=== PATIENT | male | born 1945 | race Caucasian/White ===

== ENCOUNTER 2018-05-31 08:33 | Inpatient (IN) | payer MEDICARE ==
[~2018-05-31] VITALS: Ht 182.9 cm; Wt 113.1 kg
[~2018-05-31 08:33] MED LIST: ASP81TEC PO; HIGH BLOOD PRESSURE PO; LISI10TA PO; LISI1TAB6 PO; METO-333 PO; SIMV10TA3 PO; SMV10T PO
[2018-05-31] MEDS ORDERED: RT-ALBUTEROL/IPRATROPIUM 3 ML (DUONEB) VIAL INH ONE (09:00)
[2018-05-31 09:16] LABS: BASOPHILS % (AUTO) 0 % (0-10); EOSINOPHILS # (AUTO) 0.3 10^3/uL (0.0-0.3); EOSINOPHILS % (AUTO) 4 % (0-10); HEMATOCRIT 38 % (40-54); HEMOGLOBIN 12.7 G/DL (13.3-17.7); LYMPHOCYTES # (AUTO) 1.1 X 10^3 (1.0-4.0); LYMPHOCYTES % (AUTO) 13 % (12-44); MEAN CORPUSCULAR HEMOGLOBIN 34 PG (25-34); MEAN CORPUSCULAR HGB CONC 33 G/DL (32-36); MEAN CORPUSCULAR VOLUME 102 FL (80-99); MEAN PLATELET VOLUME 10.6 FL (7.4-10.4); MONOCYTES # (AUTO) 0.8 X 10^3 (0.0-1.0); MONOCYTES % (AUTO) 10 % (0-12); NEUTROPHILS # (AUTO) 5.8 X 10^3 (1.8-7.8); NEUTROPHILS % (AUTO) 73 % (42-75); PLATELET COUNT 232 10^3/uL (130-400); RED CELL DISTRIBUTION WIDTH 14.4 % (10.0-14.5)
--- NOTE | 2018-05-31 09:19 | NUR ---
SONDRA IN RT NOTIIFED OF NEEDING A BREATHING TX.
[2018-05-31 09:23] LABS: ALANINE AMINOTRANSFERASE 45 U/L (0-55); ALBUMIN 3.8 GM/DL (3.2-4.5); ALKALINE PHOSPHATASE 72 U/L (40-136); BILIRUBIN,TOTAL 0.4 MG/DL (0.1-1.0); BUN/CREATININE RATIO 11; CALCIUM 9.2 MG/DL (8.5-10.1); CARBON DIOXIDE 25 MMOL/L (21-32); CHLORIDE 103 MMOL/L (98-107); GFR ESTIMATED > 60; GLUCOSE 135 MG/DL (70-105); POTASSIUM 4.2 MMOL/L (3.6-5.0); SODIUM 135 MMOL/L (135-145); TOTAL PROTEIN 7.4 GM/DL (6.4-8.2)
--- NOTE | 2018-05-31 09:23 | Diagnostic Imaging Report ---
INDICATION: Shortness of air, worsening in severity. Compared with exam 12/15/2011. FINDINGS: No alveolar consolidation. The heart size stable. No effusion or pneumothorax. Perihilar interstitial markings are more prominent and there is some thickening of the central airways which may reflect bronchitis or other reactive airway disease. The lung volumes within normal limits. IMPRESSION: Mild thickening of the central airways but no consolidating pneumonia, no pleural abnormality. Dictated by: Dictated on workstation # [id number]
--- NOTE | 2018-05-31 09:35 | ED General ---
General Chief Complaint: Respiratory Problems Stated Complaint: SOB Nursing Triage Note: ARRIVED VIA AMB TO ROOM 07 WITH SOA FOR TWO DAYS THAT HAS BECAME WORSE. Nursing Sepsis Screen: No Definite Risk Source of Information: Patient Exam Limitations: No Limitations History of Present Illness Date Seen by Provider: May 31, 2018 Time Seen by Provider: 08:53 Initial Comments This 72-year-old gentleman presents to the emergency room with cough, shortness of breath, and wheezing for the past couple of days. He is noted to be hypoxic on room air during assessment with an oxygen saturation of 84 percent. He denies any history of COPD or asthma. He does not use any inhaled treatments at home. He does have an extensive smoking history. Review of his chart notes a normal cardiac catheter in 2011. He denies any chest pain. His primary care providers Daniel Pope at [facility]. Allergies and Home Medications Allergies Coded Allergies: No Known Drug Allergies (Unverified , 12/15/11) Home Medications Amlodipine Besylate 10 Mg Tablet, 10 MG PO HS, (Reported) Aspirin 81 Mg Tablet.dr, 81 MG PO HS, (Reported) Ibuprofen 800 Mg Tablet, 800 MG PO TID PRN for PAIN-MILD, (Reported) Losartan Potassium 100 Mg Tablet, 100 MG PO HS, (Reported) Metoprolol Succinate 25 Mg Tab.er.24h, 25 MG PO HS, (Reported) Terazosin HCl 10 Mg Capsule, 10 MG PO HS, (Reported) Patient Home Medication List Home Medication List Reviewed: Yes Review of Systems Review of Systems Constitutional: no symptoms reported EENTM: no symptoms reported Respiratory: see HPI Cardiovascular: no symptoms reported Gastrointestinal: no symptoms reported Genitourinary: no symptoms reported Musculoskeletal: no symptoms reported Skin: no symptoms reported Psychiatric/Neurological: No Symptoms Reported Hematologic/Lymphatic: No Symptoms Reported Immunological/Allergic: no symptoms reported Past Yqjgtgy-Lchldz-Lrytfu Hx Past Med/Social Hx: Reviewed and Corrections made Patient Social History Alcohol Use: Occasionally Uses Recreational Drug Use: No Smoking Status: Current Everyday Smoker Recent Foreign Travel: No Contact w/Someone Who Travel: No Recent Infectious Disease Expo: No Recent Hopitalizations: Yes Past Medical History Surgeries: Yes Cardiac (Cath), Vascular Surgery (Carotid) Respiratory: Yes (tobaccoism) Cardiac: Yes Hypertension Neurological: No Reproductive Disorders: No Genitourinary: No Gastrointestinal: No Musculoskeletal: Yes Arthritis Endocrine: No HEENT: No Cancer: No Psychosocial: No Integumentary: No Blood Disorders: No Physical Exam Vital Signs Vital Signs - First Documented 05/31/18 08:38 Temp 97.7 Pulse 67 Resp 22 B/P (MAP) 172/151 (158) Pulse Ox 84 O2 Delivery Room Air O2 Flow Rate 2.00 Capillary Refill : Less Than 3 Seconds Height, Weight, BMI Height: 6'" Weight: 260lbs. oz. 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 Norm as Tested Skin: Normal Color, Warm/Dry Progress/Results/Core Measures Suspected Sepsis Recent Fever Within 48 Hours: No Infection Criteria Present: Suspected New Infection New/Unexplained Altered Menta: No Sepsis Screen: No Definite Risk SIRS Temperature:97.7 Pulse: 67 Respiratory Rate: 22 Laboratory Tests 05/31/18 08:45: White Blood Count 8.0 Blood Pressure 172 /151 Mean: 158 Laboratory Tests 05/31/18 08:45: Creatinine 1.00, Platelet Count 232, Total Bilirubin 0.4 Results/Orders Lab Results Laboratory Tests Test 05/31/18 08:45 Range/Units White Blood Count 8.0 4.3-11.0 10^3/uL Red Blood Count 3.74 L 4.35-5.85 10^6/uL Hemoglobin 12.7 L 13.3-17.7 G/DL Hematocrit 38 L 40-54 % Mean Corpuscular Volume 102 H 80-99 FL Mean Corpuscular Hemoglobin 34 25-34 PG Mean Corpuscular Hemoglobin Concent 33 32-36 G/DL Red Cell Distribution Width 14.4 10.0-14.5 % Platelet Count 232 130-400 10^3/uL Mean Platelet Volume 10.6 H 7.4-10.4 FL Neutrophils (%) (Auto) 73 42-75 % Lymphocytes (%) (Auto) 13 12-44 % Monocytes (%) (Auto) 10 0-12 % Eosinophils (%) (Auto) 4 0-10 % Basophils (%) (Auto) 0 0-10 % Neutrophils # (Auto) 5.8 1.8-7.8 X 10^3 Lymphocytes # (Auto) 1.1 1.0-4.0 X 10^3 Monocytes # (Auto) 0.8 0.0-1.0 X 10^3 Eosinophils # (Auto) 0.3 0.0-0.3 10^3/uL Basophils # (Auto) 0.0 0.0-0.1 10^3/uL Sodium Level 135 135-145 MMOL/L Potassium Level 4.2 3.6-5.0 MMOL/L Chloride Level 103 98-107 MMOL/L Carbon Dioxide Level 25 21-32 MMOL/L Anion Gap 7 5-14 MMOL/L Blood Urea Nitrogen 11 7-18 MG/DL Creatinine 1.00 0.60-1.30 MG/DL Estimat Glomerular Filtration Rate > 60 BUN/Creatinine Ratio 11 Glucose Level 135 H 70-105 MG/DL Calcium Level 9.2 8.5-10.1 MG/DL Corrected Calcium 9.4 8.5-10.1 MG/DL Total Bilirubin 0.4 0.1-1.0 MG/DL Aspartate Amino Transf (AST/SGOT) 28 5-34 U/L Alanine Aminotransferase (ALT/SGPT) 45 0-55 U/L Alkaline Phosphatase 72 40-136 U/L C-Reactive Protein High Sensitivity 7.44 H 0.00-0.50 MG/DL B-Type Natriuretic Peptide 588.2 H <100.0 PG/ML Total Protein 7.4 6.4-8.2 GM/DL Albumin 3.8 3.2-4.5 GM/DL Micro Results Microbiology 05/31/18 Influenza Types A,B Antigen (RACHAEL) - Final, Complete My Orders Orders - STANLEY MANCUSO MD Cbc With Automated Diff (05/31/18 08:53) Comprehensive Metabolic Panel (05/31/18 08:53) Hs C Reactive Protein (05/31/18 08:53) Influenza A And B Antigens (05/31/18 08:53) Chest Pa/Lat (2 View) (05/31/18 08:53) O2 (05/31/18 08:53) Monitor-Rhythm Ecg Trace Only (05/31/18 08:53) Albuterol/Ipra Inhalation Soln (Duoneb I (05/31/18 09:00) Svn Small Volume Nebulizer (05/31/18 08:53) BNP (05/31/18 08:53) Albuterol Pre-Mix Nebs (Rt) (Proventil (05/31/18 09:52) Medications Given in ED Current Medications Medications Dose Ordered Sig/Seng Route Start Time Stop Time Status Last Admin Dose Admin Albuterol/ Ipratropium 3 ml ONCE ONCE INH 05/31/18 09:00 05/31/18 09:01 DC 05/31/18 09:43 3 ML Vital Signs/I&O 05/31/18 05/31/18 05/31/18 05/31/18 08:38 08:38 09:44 09:55 Temp 97.7 Pulse 67 Resp 22 B/P (MAP) 172/151 (158) Pulse Ox 84 96 95 O2 Delivery Room Air Nasal Cannula Nasal Cannula Nasal Cannula O2 Flow Rate 2.00 2.00 2.00 05/31/18 05/31/18 11:36 11:55 Temp 98.9 98.1 Pulse 86 47 Resp 16 20 B/P (MAP) 133/91 (105) 165/62 (96) Pulse Ox 96 96 O2 Delivery Room Air Nasal Cannula O2 Flow Rate 2.00 Capillary Refill : Less Than 3 Seconds Blood Pressure Mean: 158 Progress Note : Progress Note Patient received a DuoNeb treatments 2. CRP was mildly elevated. Oxygen saturation was steady around 92 percent after the DuoNeb treatments. Plan is to admit for treatment of COPD exacerbation. Because of some fullness in the central chest and mildly elevated CRP, patient will also be given azithromycin. Patient was admitted to Dr. Arizmendi who also requested consultation from Dr. Pena. Solu-medrol will be ordered also for treatment of COPD. Diagnostic Imaging Diagonstic Imaging: Xray Plain Films/CT/US/NM/MRI: chest Comments Chest x-ray viewed by me and report reviewed. See report below: NAME: GINGER GIFFORD [facility] REC#: [id number] PT STATUS: REG ER : 1945 PHYSICIAN: STANLEY MANCUSO MD ADMIT DATE: 05/31/18/ER Draft Date of Exam:05/31/18 CHEST PA/LAT (2 VIEW) INDICATION: Shortness of air, worsening in severity. Compared with exam 12/15/2011. FINDINGS: No alveolar consolidation. The heart size stable. No effusion or pneumothorax. Perihilar interstitial markings are more prominent and there is some thickening of the central airways which may reflect bronchitis or other reactive airway disease. The lung volumes within normal limits. IMPRESSION: Mild thickening of the central airways but no consolidating pneumonia, no pleural abnormality. Dictated on workstation # [id number] Dict: 05/31/18916 Trans: 05/31/18922 [facility] [phone] Interpreted by: EVITA CARVAJAL Departure Communication (Admissions) Time/Spoke to Admitting Phy: 10:53 Dr. Arizmendi Time/Spoke to Consulting Phy: 10:57 Dr. Pena Impression Primary Impression: COPD exacerbation Additional Impression: Hypoxia Disposition: ADMITTED INPATIENT Condition: Improved Admissions Decision to Admit Reason: Admit from ER (General) Decision to Admit/Date: May 31, 2018 Time/Decision to Admit Time: 10:50 Departure-Patient Inst. Referrals: [facility] (PCP) Primary Care Physician DONTRELL POPE (Family) Primary Care Physician STANLEY MANCUSO MD May 31, 2018 09:35
[2018-05-31] MEDS ORDERED: RT-ALBUTEROL SULF 2.5 MG/3 ML PRE-MIX VIAL ONE (09:52)
--- NOTE | 2018-05-31 09:55 | NUR ---
SONDRA FROM RT IN ROOM GIVING 2ND BREATHING TX.
--- OUTSIDE RECORDS SUMMARY | 2018-05-31 09:55 | XMS REPORT ---
Author Author DONTRELL SMART Organization [facility] Address [address] [place] [address] Care Team Providers Care Surgery Aide Name Role Phone BING DONTRELL Unavailable PROBLEMS Type Condition ICD9-CM Code [id number] Code Onset Dates Condition Status SNOMED Code Problem Other chronic pain G89.29 Active 24699453 Problem Arthritis M19.90 Active 7771963 Problem Hypertension, benign I10 Active 78190918 Problem Benign prostatic hyperplasia with lower urinary tract symptoms N40.1 Active 421674785 ALLERGIES No Known Allergies ENCOUNTERS Encounter Location Date Diagnosis [place] [id number] [place] [address] Feb, Low back pain M54.5 and Other chronic pain G89.29 [place] [address] [place] [id number] [place] [address] Jan, Arthritis M19.90 [place] [address] [address] 10 Dec, 2017 Arthritis M19.90 ; Low back pain M54.5 ; Other chronic pain G89.29 ; Pain in right foot M79.671 and Pain of left foot M79.672 [place] [address] [place] [id number] [place] [address] Nov, Low back pain M54.5 [place] [address] [place] [id number] [place] [address] Nov, Elevated liver enzymes R74.8 [place] [address] [place] [id number] [place] [address] Nov, Low back pain M54.5 ; Other chronic pain G89.29 and Hypertension, benign I10 [place] [address] [place] [id number] [address] Nov, Low back pain M54.5 [facility] [address] [place] [id number] [place] [address] Nov, Low back pain M54.5 ; Other chronic pain G89.29 and Hypertension, benign I10 [facility] [address] [place] [id number] [place] [address]84- [address] Apr, Arthritis M19.90 ; Hypertension, benign I10 ; Benign prostatic hyperplasia with lower urinary tract symptoms N40.1 and Straining to void R39.16 [facility] [address] [place] [id number] [place] [address] Jul, [facility] [address] [place] [id number] [place] [address] 86[address]- [address] Jul, [facility] [address] [place] [id number] [place] [address]35[address] Dec, [facility] [address] [place] [id number] [place] [address] 40245- [address] August, [facility] [address] [place] [id number] [place] [address] 18[address]- [address] Mar, [facility] [address] [place] [address] 31262- 63[address] Mar, [facility] [id number] [place] [address]- [address] Oct, [facility] [address] [address] Sep, [facility] [address] [place] [id number] [place] [address]- [address] Jul, [facility] [address] [place] [address] [id number] [place] [address] 00441- 8[address] Jul, IMMUNIZATIONS No Known Immunizations SOCIAL HISTORY Never Assessed REASON FOR VISIT Back pain in for follow up wants to discuss changing medication --VERNA Shah PLAN OF CARE VITAL SIGNS Height 73 in 2018-02-08 Weight 256.4 lbs 2018-02-08 Temperature 98.7 degrees Fahrenheit 2018-02-08 Heart Rate irregular:78 bpm 2018-02-08 Respiratory Rate 18 2018-02-08 BMI 33.82 kg/m2 2018-02-08 Blood pressure systolic 162 mmHg 2018-02-08 Blood pressure diastolic 76 mmHg 2018-02-08 MEDICATIONS Medication Instructions Dosage Frequency Start Date End Date Duration Status Metoprolol Succinate ER 25 MG TAKE ONE (1) TABLET BY MOUTH ONCE DAILY 90 Active Amlodipine Besylate 10 mg Orally Once a day 1 tablet 24h Active Terazosin HCl 10 MG TAKE ONE (1) CAPSULE BY MOUTH ONCE DAILY 90 Active Ibuprofen 800 MG Orally Three times a day 1 tablet with food or milk as needed 8h Feb, Active Losartan Potassium 100 MG TAKE ONE (1) TABLET BY MOUTH ONCE DAILY 90 Active Viagra 100 mg Orally Once a day 1 tablet as needed 24h Feb, Active RESULTS No Results PROCEDURES Procedure Date Ordered Result Body Site [facility] VISIT ESTABLISHED PATIENT Feb 08, 2018 INSTRUCTIONS MEDICATIONS ADMINISTERED No Known Medications MEDICAL (GENERAL) HISTORY Type Description Date Medical History Accelerated hypertension Medical History Benign prostatic hyperplasia, unspecified whether lower urinary tract symptoms present Surgical History carotid endarterectomy Surgical History cholecystectomy Surgical History appendectomy
--- OUTSIDE RECORDS SUMMARY | 2018-05-31 09:56 | XMS REPORT ---
Author Author DONTRELL SMART Organization [facility] Address [address] [place] [address] Care Team Providers Care Wound Care Coordinator Name Role Phone BING DONTRELL Unavailable PROBLEMS Type Condition ICD9-CM Code [id number] Code Onset Dates Condition Status SNOMED Code Problem Other chronic pain G89.29 Active 69480380 Problem Arthritis M19.90 Active 2543122 Problem Hypertension, benign I10 Active 31693976 Problem Benign prostatic hyperplasia with lower urinary tract symptoms N40.1 Active 239886684 ALLERGIES No Known Allergies ENCOUNTERS Encounter Location Date Diagnosis [place] [address] [address] Dec, Arthritis M19.90 ; Low back pain M54.5 ; Other chronic pain G89.29 ; Pain in right foot M79.671 and Pain of left foot M79.672 [place] [address] [address] Nov, Low back pain M54.5 [place] [address] [address] Nov, Elevated liver enzymes R74.8 [place] [address] [address] Nov, Low back pain M54.5 ; Other chronic pain G89.29 and Hypertension, benign I10 [place] [address] [address] Nov, Low back pain M54.5 [place] [address] [address] Nov, Low back pain M54.5 ; Other chronic pain G89.29 and Hypertension, benign I10 [facility] [address] [address] Apr, Arthritis M19.90 ; Hypertension, benign I10 ; Benign prostatic hyperplasia with lower urinary tract symptoms N40.1 and Straining to void R39.16 [facility] [address] [address] Jul, [facility] [address] [id number] [place] [address] Jul, [facility] [address] [id number] [address] Dec, [facility] [id number] [place] [address] August, [facility] [id number] [address] Mar, [facility] [id number] [place] [address] Mar, [facility] [address] [address] Oct, [facility] [id number] [address] Sep, [facility] [address] [address] Jul, [facility] [address] [address] Jul, IMMUNIZATIONS No Known Immunizations SOCIAL HISTORY Never Assessed REASON FOR VISIT Hypertension-VERNA wyatt, has a lump on throat, lower back hurts PLAN OF CARE VITAL SIGNS Height 73 in 2017-11-07 Weight 252.8 lbs 2017-11-07 Temperature 97.7 degrees Fahrenheit 2017-11-07 Heart Rate 74 bpm 2017-11-07 Respiratory Rate 18 2017-11-07 BMI 33.35 kg/m2 2017-11-07 Blood pressure systolic 158 mmHg 2017-11-07 Blood pressure diastolic 68 mmHg 2017-11-07 MEDICATIONS Medication Instructions Dosage Frequency Start Date End Date Duration Status Methocarbamol 750 MG Orally 3 times a day 1 tablet 8h Nov, Active Diclofenac Sodium 75 MG Orally Twice a day 1 tablet with food or milk 12h Nov, Feb, 30 day(s) Active Losartan Potassium 100 MG TAKE ONE (1) TABLET BY MOUTH ONCE DAILY 90 Active Terazosin HCl 10 MG TAKE ONE (1) CAPSULE BY MOUTH ONCE DAILY 90 Active Metoprolol Succinate ER 25 MG TAKE ONE (1) TABLET BY MOUTH ONCE DAILY 90 Active Amlodipine Besylate 10 mg Orally Once a day 1 tablet 24h Active RESULTS No Results PROCEDURES Procedure Date Ordered Result Body Site [facility] VISIT ESTABLISHED PATIENT Nov 07, 2017 INSTRUCTIONS MEDICATIONS ADMINISTERED No Known Medications MEDICAL (GENERAL) HISTORY Type Description Date Medical History Accelerated hypertension Medical History Benign prostatic hyperplasia, unspecified whether lower urinary tract symptoms present Surgical History carotid endarterectomy Surgical History cholecystectomy Surgical History appendectomy
--- OUTSIDE RECORDS SUMMARY | 2018-05-31 09:56 | XMS REPORT ---
Author Author DONTRELL SMART Organization [facility] Address [address] [place] [address] Care Team Providers Care Enterprise Project Manager Name Role Phone BING DONTRELL Unavailable PROBLEMS Type Condition ICD9-CM Code XOQ79-UF Code Onset Dates Condition Status SNOMED Code Problem Other chronic pain G89.29 Active 79603181 Problem Arthritis M19.90 Active 3310345 Problem Hypertension, benign I10 Active 30903211 Problem Benign prostatic hyperplasia with lower urinary tract symptoms N40.1 Active 798304197 ALLERGIES No Information ENCOUNTERS Encounter Location Date Diagnosis [place] [address] [address] Dec, Arthritis M19.90 ; Low back pain M54.5 ; Other chronic pain G89.29 ; Pain in right foot M79.671 and Pain of left foot M79.672 [place] [address] [address] Nov, Low back pain M54.5 [place] [address] [address] Nov, Elevated liver enzymes R74.8 [place] [address] [address] Nov, Low back pain M54.5 ; Other chronic pain G89.29 and Hypertension, benign I10 [place] [address] [address] Nov, Low back pain M54.5 [place] [address] [address] Nov, Low back pain M54.5 ; Other chronic pain G89.29 and Hypertension, benign I10 [facility] [address], [place] [address] Apr, Arthritis M19.90 ; Hypertension, benign I10 ; Benign prostatic hyperplasia with lower urinary tract symptoms N40.1 and Straining to void R39.16 [facility] [address], [place] [address] 14 Jul, 2014 [facility] [address] [place] [id number] [place] [address] Jul, [facility] [address], [place] [address] Dec, [facility] [address] [place] [id number] [place] [address]- [address] August, [facility] [address], [place] [address] Mar, [facility] [address] [place] [id number] [place] [address]- [address] Mar, [facility] [address], [place] [address] Oct, [facility] [id number] [place] [address]- [address] Sep, [facility] [address], [place] [address]- [address] Jul, [facility] [address], [place] [address] Jul, IMMUNIZATIONS No Known Immunizations SOCIAL HISTORY Never Assessed REASON FOR VISIT Lab (walk-in) PLAN OF CARE VITAL SIGNS MEDICATIONS Unknown Medications RESULTS No Results PROCEDURES Procedure Date Ordered Result Body Site LAB NOT BILLED BY [facility] Nov 10, 2017 ALBERT LAI* Nov 10, 2017 INSTRUCTIONS MEDICATIONS ADMINISTERED No Known Medications MEDICAL (GENERAL) HISTORY Type Description Date Medical History Accelerated hypertension Medical History Benign prostatic hyperplasia, unspecified whether lower urinary tract symptoms present Surgical History carotid endarterectomy Surgical History cholecystectomy Surgical History appendectomy
--- OUTSIDE RECORDS SUMMARY | 2018-05-31 09:56 | XMS REPORT | Continuity of Care Document ---
Author Author [facility] Ctr of [facility] Ctr of [facility] Address Unknown Phone Unavailable Allergies There is no data. Medications There is no data. Problems Date Dx Coded Attending Type Code Diagnosis Diagnosed By 07/29/2011 FREDERICK LONGORIA MD 607.84 IMPOTENCE OF ORGANIC ORIGIN 03/13/2012 FREDERICK LONGORIA MD 401.9 UNSPECIFIED ESSENTIAL HYPERTENSION Procedures Code Description [place] [address] ROUTINE VENIPUNCTURE 03/13/2012 28977 CMP 03/13/20126457962 GFR CALC (RESULT ONLY) 03/13/2012 Results Test Result Range Comprehensive Metabolic Panel - 03/23/16 17:30 Albumin 4.3 g/dL 3.6-5.1 ALP 69 U/L 35-130 ALT 40 U/L 6-45 Anion Gap 14 6-14 AST 29 U/L 2-40 BUN 25 mg/dL 5-25 Calcium 9.2 mg/dL 8.3-10.4 Chloride 106 mmol/L 95-114 CO2 22 mEq/L 22-33 Creat 1.58 mg/dL 0.50-1.50 eGFR 44 mL/min/1.73m2 >59 Globulin 3.2 g/dL 2.3-3.5 Glucose 115 mg/dL 70-110 Osmo 288 280-295 Potassium 4.7 mmol/L 3.5-5.3 Sodium 137 mmol/L 134-148 TBil 0.3 mg/dL 0.2-1.2 TP 7.5 g/dL 6.0-8.3 Uric Acid - 03/23/16 17:30 Uric Acid 7.5 mg/dL 2.6-7.2 BMP - 04/27/16 14:14 Anion Gap 14 6-14 BUN 17 mg/dL 5-25 Calcium 9.4 mg/dL 8.3-10.4 Chloride 106 mmol/L 95-114 CO2 22 mEq/L 22-33 Creat 1.08 mg/dL 0.50-1.50 eGFR 68 mL/min/1.73m2 >59 Glucose 89 mg/dL 70-110 Osmo 284 280-295 Potassium 5.0 mmol/L 3.5-5.3 Sodium 137 mmol/L 134-148 [facility] - 09/29/16 12:01 Anion Gap 15 6-14 BUN 20 mg/dL 5-25 Calcium 9.6 mg/dL 8.3-10.4 Chloride 106 mmol/L 95-114 CO2 24 mEq/L 22-33 Creat 1.12 mg/dL 0.50-1.50 eGFR 65 mL/min/1.73m2 >59 Glucose 111 mg/dL 70-110 Osmo 292 280-295 Potassium 5.1 mmol/L 3.5-5.3 Sodium 140 mmol/L 134-148 [facility] - 11/10/17 08:10 GLUCOSE 129 mg/dL 65-99 UREA NITROGEN (BUN) 21 mg/dL 7-25 CREATININE 1.19 mg/dL 0.70-1.18 eGFR NON-AFR. DUTCH 61 mL/min/1.73m2 > OR=60 eGFR 71 mL/min/1.73m2 > OR=60 BUN/CREATININE RATIO 18 (calc) 6-22 SODIUM 138 mmol/L 135-146 POTASSIUM 4.5 mmol/L 3.5-5.3 CHLORIDE 104 mmol/L 98-110 CARBON DIOXIDE 27 mmol/L 20-32 CALCIUM 9.0 mg/dL 8.6-10.3 PROTEIN, TOTAL 6.9 g/dL 6.1-8.1 ALBUMIN 3.8 g/dL 3.6-5.1 GLOBULIN 3.1 g/dL (calc) 1.9-3.7 ALBUMIN/GLOBULIN RATIO 1.2 (calc) 1.0-2.5 BILIRUBIN, TOTAL 0.3 mg/dL 0.2-1.2 ALKALINE PHOSPHATASE 72 U/L 40-115 AST 57 U/L 10-35 ALT 81 U/L 9-46 Encounters ACCT No. Visit Date/Time Discharge Status Pt. Type Provider Facility Loc./Unit Complaint [id number] 03/13/2012 14:09:00 03/13/2012 23:59:59 CLS Outpatient FREDERICK LONGORIA MD [id number] 05/03/2018 18:00:00 05/03/2018 23:59:59 CLS Outpatient RUSSELL ASHER [facility] [id number] 11/10/2017 08:00:00 Document Registration [id number] 09/29/2016 11:58:00 09/29/2016 23:59:00 DIS Outpatient ИВАН PLATA [id number] 04/27/2016 14:00:00 04/27/2016 23:59:00 DIS Outpatient ИВАН PLATA [id number] 03/30/2016 16:41:00 03/30/2016 23:59:00 DIS Outpatient ИВАН PLATA [id number] 03/23/2016 17:47:00 03/23/2016 23:59:00 DIS Outpatient ИВАН PLATA [id number] 02/24/2016 09:45:00 02/24/2016 23:59:00 DIS Outpatient RUTH ADKINS [id number] 02/23/2016 00:00:00 02/23/2016 23:59:00 DIS Outpatient ИВАН PLATA [id number] 03/23/2016 17:47:00 Document Registration
--- OUTSIDE RECORDS SUMMARY | 2018-05-31 09:56 | XMS REPORT ---
Author Author DONTRELL SMART Organization [facility] Address [address] [place] [address] Care Team Providers Care Chuck Wagon Cook Name Role Phone BING DONTRELL Unavailable PROBLEMS Type Condition ICD9-CM Code RXX32-CK Code Onset Dates Condition Status SNOMED Code Problem Other chronic pain G89.29 Active 59724488 Problem Arthritis M19.90 Active 9041717 Problem Hypertension, benign I10 Active 62430742 Problem Benign prostatic hyperplasia with lower urinary tract symptoms N40.1 Active 615457330 ALLERGIES No Known Allergies ENCOUNTERS Encounter Location Date Diagnosis [place] [address] [address] Dec, Arthritis M19.90 ; Low back pain M54.5 ; Other chronic pain G89.29 ; Pain in right foot M79.671 and Pain of left foot M79.672 [place] [address] [address] Nov, Low back pain M54.5 [place] [address] [address] Nov, Elevated liver enzymes R74.8 [place] [address] [address] Nov, Low back pain M54.5 ; Other chronic pain G89.29 and Hypertension, benign I10 [place] [address] [address] Nov, Low back pain M54.5 [place] [address] [address] Nov, Low back pain M54.5 ; Other chronic pain G89.29 and Hypertension, benign I10 [facility] [address], [place] [address] Apr, Arthritis M19.90 ; Hypertension, benign I10 ; Benign prostatic hyperplasia with lower urinary tract symptoms N40.1 and Straining to void R39.16 [facility] [address], [place] [address] 14 Jul, 2014 [facility] [address] [place] [id number] [place] [address] Jul, [facility] [address], [place] [address] Dec, [facility] [address] [place] [id number] [place] [address] August, [facility] [address], [place] [address] Mar, [facility] [address] [place] [id number] [place] [address] Mar, [facility] [address], [place] [address] Oct, [facility] [address] [place] [address] Sep, [facility] [address], [place] [address] Jul, [facility] [address], [place] [address] Jul, IMMUNIZATIONS No Known Immunizations SOCIAL HISTORY Never Assessed REASON FOR VISIT Prior Authorization Request PLAN OF CARE VITAL SIGNS MEDICATIONS Unknown Medications RESULTS No Results PROCEDURES No Known procedures INSTRUCTIONS MEDICATIONS ADMINISTERED No Known Medications MEDICAL (GENERAL) HISTORY Type Description Date Medical History Accelerated hypertension Medical History Benign prostatic hyperplasia, unspecified whether lower urinary tract symptoms present Surgical History carotid endarterectomy Surgical History cholecystectomy Surgical History appendectomy
--- OUTSIDE RECORDS SUMMARY | 2018-05-31 09:56 | XMS REPORT ---
Author Author DONTRELL SMART Organization [facility] Address [address] [place] [address] Care Team Providers Care Timers Inspector Name Role Phone BING DONTRELL Unavailable PROBLEMS Type Condition ICD9-CM Code [id number] Code Onset Dates Condition Status SNOMED Code Problem Other chronic pain G89.29 Active 15738267 Problem Arthritis M19.90 Active 9065158 Problem Hypertension, benign I10 Active 49822602 Problem Benign prostatic hyperplasia with lower urinary tract symptoms N40.1 Active 922832534 ALLERGIES No Information ENCOUNTERS Encounter Location Date Diagnosis [place] [address] [address] Dec, Arthritis M19.90 ; Low back pain M54.5 ; Other chronic pain G89.29 ; Pain in right foot M79.671 and Pain of left foot M79.672 [place] [address] [address] Nov, Low back pain M54.5 [place] [address] [address] Nov, Elevated liver enzymes R74.8 [place] [address] [address] Nov, Low back pain M54.5 ; Other chronic pain G89.29 and Hypertension, benign I10 [place] [address] [address] Nov, Low back pain M54.5 [place] [address] [address] Nov, Low back pain M54.5 ; Other chronic pain G89.29 and Hypertension, benign I10 [facility] [address], [place] [address] Apr, Arthritis M19.90 ; Hypertension, benign I10 ; Benign prostatic hyperplasia with lower urinary tract symptoms N40.1 and Straining to void R39.16 [facility] [address], [place] [address] 14 Jul, 2014 [facility] [address] [place] [id number] [place] [address] Jul, [facility] [address] [place] [id number] [place] [address]- [address] Dec, [facility] [address] [place] [id number] [place] [address] August, [facility] [address], [place] [address] Mar, [facility] [address] [place] [id number] [place] [address]- [address] Mar, [facility] [address], [place] [address] Oct, [facility] [address] [place] [id number] [place] [address] 9[address] Sep, [facility] [address], [place] [address] Jul, [facility] [address] [address] Jul, IMMUNIZATIONS No Known Immunizations SOCIAL HISTORY Never Assessed REASON FOR VISIT Lab results PLAN OF CARE VITAL SIGNS MEDICATIONS Unknown Medications RESULTS No Results PROCEDURES No Known procedures INSTRUCTIONS MEDICATIONS ADMINISTERED No Known Medications MEDICAL (GENERAL) HISTORY Type Description Date Medical History Accelerated hypertension Medical History Benign prostatic hyperplasia, unspecified whether lower urinary tract symptoms present Surgical History carotid endarterectomy Surgical History cholecystectomy Surgical History appendectomy
--- OUTSIDE RECORDS SUMMARY | 2018-05-31 09:56 | XMS REPORT ---
Author Author DONTRELL SMART Organization [facility] Address [address] [place] [address] Care Team Providers Care Manager Billing Name Role Phone BING DONTRELL Unavailable PROBLEMS Type Condition ICD9-CM Code [id number] Code Onset Dates Condition Status SNOMED Code Problem Other chronic pain G89.29 Active 81106196 Problem Arthritis M19.90 Active 0284679 Problem Hypertension, benign I10 Active 01551015 Problem Benign prostatic hyperplasia with lower urinary tract symptoms N40.1 Active 758773137 ALLERGIES No Known Allergies ENCOUNTERS Encounter Location Date Diagnosis [place] [address] [address] Dec, Arthritis M19.90 ; Low back pain M54.5 ; Other chronic pain G89.29 ; Pain in right foot M79.671 and Pain of left foot M79.672 [place] [address] [address] Nov, Low back pain M54.5 [place] [address] [address] Nov, Elevated liver enzymes R74.8 [place] [address] [address] Nov, Low back pain M54.5 ; Other chronic pain G89.29 and Hypertension, benign I10 [place] [address] [address] Nov, Low back pain M54.5 [place] [address] [address] Nov, Low back pain M54.5 ; Other chronic pain G89.29 and Hypertension, benign I10 [facility] [address] [address] Apr, Arthritis M19.90 ; Hypertension, benign I10 ; Benign prostatic hyperplasia with lower urinary tract symptoms N40.1 and Straining to void R39.16 [facility] [address] [address] 14 Jul, 2014 [facility] [address] [place] [id number] [place] [address] Jul, [facility] [address] [place] [id number] [address] Dec, [facility] [address] [place] [id number] [place] [address]- [address] August, [facility] [address] [place] [id number] [place] [address]- [address] Mar, [facility] [address] [place] [id number] [place] [address]- 4[address] Mar, [facility] [address] [place] [address]- [address] Oct, [facility] [address] [place] [id number] [place] [address]- 35[address] Sep, [facility] [address] [address] Jul, [facility] [address] [address] Jul, IMMUNIZATIONS No Known Immunizations SOCIAL HISTORY Never Assessed REASON FOR VISIT Back Pain, pain on left heel x2 weeks PLAN OF CARE VITAL SIGNS Height 73 in 2017-12-12 Weight 261.3 lbs 2017-12-12 Temperature 97.8 degrees Fahrenheit 2017-12-12 Heart Rate 80 bpm 2017-12-12 Respiratory Rate 18 2017-12-12 BMI 34.47 kg/m2 2017-12-12 Blood pressure systolic 142 mmHg 2017-12-12 Blood pressure diastolic 62 mmHg 2017-12-12 MEDICATIONS Medication Instructions Dosage Frequency Start Date End Date Duration Status [place] 5-325 MG Orally 2 times a day 1 tablet as needed 12h 10 Dec, 2017 Active Metoprolol Succinate ER 25 MG TAKE ONE (1) TABLET BY MOUTH ONCE DAILY 90 Active Terazosin HCl 10 MG TAKE ONE (1) CAPSULE BY MOUTH ONCE DAILY 90 Active Amlodipine Besylate 10 mg Orally Once a day 1 tablet 24h Active Losartan Potassium 100 MG TAKE ONE (1) TABLET BY MOUTH ONCE DAILY 90 Active RESULTS No Results PROCEDURES Procedure Date Ordered Result Body Site [facility] VISIT ESTABLISHED PATIENT Dec 12, 2017 INSTRUCTIONS MEDICATIONS ADMINISTERED No Known Medications MEDICAL (GENERAL) HISTORY Type Description Date Medical History Accelerated hypertension Medical History Benign prostatic hyperplasia, unspecified whether lower urinary tract symptoms present Surgical History carotid endarterectomy Surgical History cholecystectomy Surgical History appendectomy
--- OUTSIDE RECORDS SUMMARY | 2018-05-31 09:56 | XMS REPORT ---
Author Author DONTRELL SMART Organization [facility] [place] Address [address] [place] [address] Care Team Providers Care Liquefier Name Role Phone DONTRELL SMART Unavailable PROBLEMS Type Condition ICD9-CM Code GPG68-BU Code Onset Dates Condition Status SNOMED Code Problem Arthritis M19.90 Active 5574734 Problem Hypertension, benign I10 Active 95140848 Problem Benign prostatic hyperplasia with lower urinary tract symptoms N40.1 Active 864292007 ALLERGIES No Known Allergies ENCOUNTERS Encounter Location Date Diagnosis [facility] [place] [address] [place] [id number] [place] [address] Apr, Arthritis M19.90 ; Hypertension, benign I10 ; Benign prostatic hyperplasia with lower urinary tract symptoms N40.1 and Straining to void R39.16 [facility] [place] [address] [place] [id number] [place] [address]- [address] Jul, [facility] [place] [address] [place] [id number] [place] [address]- 79[address] Jul, [facility] [place] [address] [place] [id number] [place] [address]- 35[address] Dec, [facility] [place] [address] [place] [id number] [place] [address]- [address]100 August, [facility] [place] [address] [place] [id number] [place] [address]- [address] Mar, [facility] [place] [address] [address] Mar, [facility] [place] [address] [place] [id number] [place] [address]- [address]681 Oct, [facility] [place] [address] [address] Sep, [facility] [place] [address] [facility] [id number] [place] [address]- [address] Jul, [facility] [place] [address] [facility] [id number] [place] [address]- [address] Jul, IMMUNIZATIONS No Known Immunizations SOCIAL HISTORY Never Assessed REASON FOR VISIT Establish Care- was a shayla Shields Pt- Bouchra Shields RN PLAN OF CARE VITAL SIGNS Height 73 in 2017-04-25 Weight 246 lbs 2017-04-25 Temperature 98.0 degrees Fahrenheit 2017-04-25 Heart Rate 80 bpm 2017-04-25 Respiratory Rate 18 2017-04-25 BMI 32.45 kg/m2 2017-04-25 Blood pressure systolic 162 mmHg 2017-04-25 Blood pressure diastolic 98 mmHg 2017-04-25 MEDICATIONS Medication Instructions Dosage Frequency Start Date End Date Duration Status Losartan Potassium 100 mg Orally Once a day 1 tablet 24h Active Terazosin HCl 10 mg Orally Once a day 1 capsule 24h Active Metoprolol Succinate ER 25 MG Orally Once a day 1 tablet 24h Active Meloxicam 15 mg Orally Once a day 1 tablet 24h Active Amlodipine Besylate 10 mg Orally Once a day 1 tablet 24h Active RESULTS No Results PROCEDURES Procedure Date Ordered Result Body Site [facility] VISIT ESTABLISHED PATIENT Apr 25, 2017 INSTRUCTIONS MEDICATIONS ADMINISTERED No Known Medications MEDICAL (GENERAL) HISTORY Type Description Date Medical History Accelerated hypertension Medical History Benign prostatic hyperplasia, unspecified whether lower urinary tract symptoms present Surgical History carotid endarterectomy Surgical History cholecystectomy Surgical History appendectomy
--- OUTSIDE RECORDS SUMMARY | 2018-05-31 09:56 | XMS REPORT ---
Author Author DONTRELL SMART Organization [facility] Address [address] [place] [address] Care Team Providers Care Cook Restaurant Name Role Phone BING DONTRELL Unavailable PROBLEMS Type Condition ICD9-CM Code [id number] Code Onset Dates Condition Status SNOMED Code Problem Other chronic pain G89.29 Active 44420760 Problem Arthritis M19.90 Active 5056254 Problem Hypertension, benign I10 Active 40697951 Problem Benign prostatic hyperplasia with lower urinary tract symptoms N40.1 Active 754230713 ALLERGIES No Information ENCOUNTERS Encounter Location Date Diagnosis [place] [address] [address] Dec, Arthritis M19.90 ; Low back pain M54.5 ; Other chronic pain G89.29 ; Pain in right foot M79.671 and Pain of left foot M79.672 [place] [address] [address] Nov, Low back pain M54.5 [place] [address] [address]- [address] Nov, Elevated liver enzymes R74.8 [place] [address] [address]- 79[address] Nov, Low back pain M54.5 ; Other chronic pain G89.29 and Hypertension, benign I10 [place] [address] [address]- [address] Nov, Low back pain M54.5 [place] [address] [address] Nov, Low back pain M54.5 ; Other chronic pain G89.29 and Hypertension, benign I10 [facility] [address], [place] [address] Apr, Arthritis M19.90 ; Hypertension, benign I10 ; Benign prostatic hyperplasia with lower urinary tract symptoms N40.1 and Straining to void R39.16 [facility] [address], [place] [address] 14 Jul, 2014 [facility] [address] [place] [id number] [place] [address]- 277[address] Jul, [facility] [address] [place] [id number] [place] [address]- 4[address] Dec, [facility] [address] [place] [id number] [place] [address]08- 65[address] August, [facility] [address] [place] [id number] [place] [address] 469[address]- 2704 Mar, [facility] [address] [place] [id number] [place] [address] 37[address]- 5847 Mar, [facility] [address] [place] [id number] [place] [address] 77840- 5237 Oct, [facility] [address] [place] [id number] [place] [address] 038242- 5137 Sep, [facility] [address], [place] [address]- 140[address] Jul, [facility] [address] [address] Jul, IMMUNIZATIONS No Known Immunizations SOCIAL HISTORY Never Assessed REASON FOR VISIT Medication question PLAN OF CARE VITAL SIGNS MEDICATIONS Medication Instructions Dosage Frequency Start Date End Date Duration Status Cyclobenzaprine HCl 10 mg Orally Three times a day 1 tablet as needed 8h Nov, Active Gabapentin 300 MG Orally Three times a day 1 capsule 8h Nov, 30 day(s) Active RESULTS No Results PROCEDURES No Known procedures INSTRUCTIONS MEDICATIONS ADMINISTERED No Known Medications MEDICAL (GENERAL) HISTORY Type Description Date Medical History Accelerated hypertension Medical History Benign prostatic hyperplasia, unspecified whether lower urinary tract symptoms present Surgical History carotid endarterectomy Surgical History cholecystectomy Surgical History appendectomy
--- NOTE | 2018-05-31 10:14 | NUR ---
RESTING IN BED ET DENIES NEEDS AT THIS TIME.
--- NOTE | 2018-05-31 10:25 | NUR ---
WARM BLANKET GIVEN,
--- NOTE | 2018-05-31 10:39 | NUR ---
DR MANCUSO IN ROOM WITH PT AT THIS TIME.
--- NOTE | 2018-05-31 11:00 | NUR ---
RUBBER MOLDER CONTACTED FOR A BED.
--- NOTE | 2018-05-31 11:27 | NUR ---
ATTEMPT TO CALL REPORT ET CHRISTO PARRY STATES SHE WILL CALL BACK FOR REPORT.
[2018-05-31 11:55] VITALS: BP 165/62
[2018-05-31] MEDS ORDERED: AZITHROMYCIN 250 MG TAB (ZITHROMAX) PO NR (11:55)
[2018-05-31] MEDS ORDERED: RT-ALBUTEROL SULF 2.5 MG/3 ML PRE-MIX VIAL IH PRN (12:00)
[2018-05-31] MEDS: methylPREDNISolone 40 MG/ML (Solu-MEDROL) VIAL IV SCH ×2 (12:17→17:53)
[2018-05-31] MEDS ORDERED: FLU QUADRIvalent (5+ YOA) 2018-2019 (AFLURIA) 0.5 ML IM ONE (12:45)
[2018-05-31] MEDS ORDERED: IBUP-1780 PO (13:34)
[2018-05-31] MEDS ORDERED: ASPI-983 PO (13:34)
[2018-05-31] MEDS ORDERED: AMLO10TA7 PO (13:34)
[2018-05-31] MEDS ORDERED: METO-387 PO (13:34)
[2018-05-31] MEDS ORDERED: TERA10CA3 PO (13:34)
[2018-05-31] MEDS ORDERED: LOSA100T57 PO (13:34)
--- NOTE | 2018-05-31 13:36 | NUR ---
PATIENT HAD A LIST OF HIS MEDICATIONS WITH HIM. I ALSO COMPARED WITH THE EXT MED HX. HE TAKES ASPIRIN 81MG OTC DAILY WELL.
[2018-05-31 13:43] VITALS: BP 165/62
--- NOTE | 2018-05-31 13:47 | Pulmonary Consultation ---
History of Present Illness History of Present Illness Date of Consultation 05/31/18 13:42 Time Seen by Provider: 13:42 Date of Admission History of Present Illness 72yo presented to the ED secondary to worsening SOB, wheezing, and cough x 2 days. He was found to be hypoxic on RA in the ED. No hx of diagnosed COPD or asthma however he does have an extensive smoking hx. I am consulted for pulmonary management. Allergies and Home Medications Allergies Coded Allergies: No Known Drug Allergies (Unverified , 12/15/11) Home Medications Amlodipine Besylate 10 Mg Tablet, 10 MG PO HS, (Reported) Aspirin 81 Mg Tablet.dr, 81 MG PO HS, (Reported) Ibuprofen 800 Mg Tablet, 800 MG PO TID PRN for PAIN-MILD, (Reported) Losartan Potassium 100 Mg Tablet, 100 MG PO HS, (Reported) Metoprolol Succinate 25 Mg Tab.er.24h, 25 MG PO HS, (Reported) Terazosin HCl 10 Mg Capsule, 10 MG PO HS, (Reported) Past Vmjdohf-Aaalzz-Dhniyh Hx Patient Social History Alcohol Use: Occasionally Uses Recreational Drug Use: No Smoking Status: Current Everyday Smoker Recent Foreign Travel: No Contact w/Someone Who Travel: No Recent Infectious Disease Expo: No Recent Hopitalizations: Yes Past Medical History Respiratory: No Cardiac: Yes Hypertension Neurological: No Reproductive Disorders: No Genitourinary: No Gastrointestinal: No Musculoskeletal: Yes Arthritis Endocrine: No HEENT: No Psychosocial: No Integumentary: No Blood Disorders: No Review of Systems Time Seen by Provider: 10:27 Constitutional: Sweats, Weakness, Malaise; No: Fever, Chills, Other Eyes: No: Pain, Vision change, Conjunctivae inflammation, Eyelid inflammation, Other, Redness ENT: Nose congestion Respiratory: Cough, Shortness of breath, SOB with excertion, Wheezing Cardiovascular: Paroxysmal Noc. Dyspnea, Lt Headedness; No: Chest Pain, Palpitations, Orthopnea, Edema, Other Gastrointestinal: No: Nausea, Vomiting, Abdominal Pain Genitourinary: No Dysuria, No Frequency, No Incontinence, No Hematuria, No Retention, No Other Neurological: Weakness Sepsis Event Evaluation Height, Weight, BMI Height: 6'" Weight: 260lbs. oz. 117.603308gp; BMI Method:Stated Exam Exam Vital Signs Date Time Temp Pulse Resp B/P (MAP) Pulse Ox O2 Delivery O2 Flow Rate FiO2 05/31/18 11:36 98.9 86 16 133/91 (105) 96 Room Air 05/31/18 09:55 95 Nasal Cannula 2.00 05/31/18 09:44 96 Nasal Cannula 2.00 05/31/18 08:38 Nasal Cannula 2.00 05/31/18 08:38 97.7 67 22 172/151 (158) 84 Room Air Height & Weight Height: 6'" Weight: 260lbs. oz. 117.692782dv; BMI Method:Stated General Appearance: Anxious, Mild Distress HEENT: PERRL/EOMI, Pharynx Normal Neck: Full Range of Motion, Non Tender, Supple Respiratory: Chest Non Tender, Normal Breath Sounds, No Accessory Muscle Use, No Respiratory Distress Cardiovascular: Regular Rate, Rhythm, No Edema, No Gallop Capillary Refill: Less Than 3 Seconds Gastrointestinal: normal bowel sounds, non tender, soft Extremity: Normal Capillary Refill, Normal Inspection, Normal Range of Motion Neurologic/Psychiatric: Alert, Oriented x3 Skin: Normal Color, Warm/Dry Lymphatic: No Adenopathy Results Lab Laboratory Tests 05/31/18 08:45 Assessment/Plan Assessment/Plan Acute SOB with wheezing Acute bronchitis with probable COPDAE -Solumedrol 40IV Q 6 -Oxygen - Duoneb, -PT will need out pt PFT to r/o COPD Elevated BNP -Check Troponin X3 Q6 hours apart -Check echocardiogram -Give lasix 40mg IV X 1 MADELYN ISBELL DO May 31, 2018 13:47
--- NOTE | 2018-05-31 13:51 | History & Physical-Hospitalist ---
History of Present Illness HPI/Chief Complaint Chief complaint: Shortness of breath. HPI: This is a 72yoWM [facility] Pt of Daniel Pope who has a past medical history of hypertension but heavy tobacco use who presented to the ER with shortness of breath and wheezing. Chest X-ray did not show any infiltrate but he was hypoxic in the 80 range in a non-oxygen dependent Pt that obviously has a new diagnosis of COPD. Pt denied any history of using a CPAP machine or home Oxygen. Smoking cessation was counseled in which he said he quit yesterday. His daughter is at the bedside. He did report having a head cold this past weekend that worsened to the point he could no longer go on at home. He denied any fever or chills. He has been placed on Azithromycin and I have consulted Dr. Pena. Elevated BNP was noted so I ordered an echocardiogram and Dr. Pena order IV Lasix along with his consultation expertise, and I have consulted Dr. Waller. Source: patient, family, RN/MD Exam Limitations: no limitations Date Seen 05/31/18 Time Seen by a Provider: 14:30 Attending Physician Yanna Olivas DO [facility] Referring Physician Date of Admission May 31, 2018 at 11:18 Home Medications & Allergies Home Medications Reviewed patient Home Medication Reconciliation performed by pharmacy medication reconciliations automotive exhaust emissions technician and/or nursing. Patients Allergies have been reviewed. Allergies Allergies Coded Allergies No Known Drug Allergies (Unverified12/15/11) Past Xpjuiux-Coycrb-Njwuvh Hx Past Med/Social Hx: Reviewed Nursing Past Med/Soc Hx, Reviewed and Corrections made Patient Social History Marrital Status: single Employed/Student: employed ([employer] 35 years) Alcohol Use: Occasionally Uses Recreational Drug Use: No Smoking Status: Current Everyday Smoker Recent Foreign Travel: No Contact w/other who traveled: No Recent Hopitalizations: Yes Recent Infectious Disease Expo: No Past Medical History Cardiac: Hypertension Reproductive: No Musculoskeletal: Arthritis History of Blood Disorders: No Family History Hypertension Review of Systems Constitutional: see HPI EENTM: no symptoms reported Respiratory: dyspnea on exertion, short of breath, wheezing Cardiovascular: no symptoms reported Gastrointestinal: no symptoms reported Genitourinary: no symptoms reported Musculoskeletal: no symptoms reported Skin: no symptoms reported Psychiatric/Neurological: No Symptoms Reported All Other Systems Reviewed Negative Unless Noted: Yes Physical Exam Physical Exam Vital Signs Vital Signs - First Documented 05/31/18 08:38 Temp 97.7 Pulse 67 Resp 22 B/P (MAP) 172/151 (158) Pulse Ox 84 O2 Delivery Room Air O2 Flow Rate 2.00 Capillary Refill : Less Than 3 Seconds Height, Weight, BMI Height: 6'0.00" Weight: 258lbs. 3.0oz. 117.329653to; BMI Method:Stated General Appearance: No Apparent Distress, WD/WN, Chronically ill, Obese Eyes: Right Eye Normal Inspection, Right Eye PERRL HEENT: PERRL/EOMI, Normal ENT Inspection, Pharynx Normal, Moist Mucous Membranes Neck: Full Range of Motion, Normal Inspection, Non Tender Respiratory: Chest Non Tender, No Accessory Muscle Use, No Respiratory Distress , Crackles, Decreased Breath Sounds, Wheezing Cardiovascular: Regular Rate, Rhythm, No Edema, No Gallop, No JVD, No Murmur, Normal Peripheral Pulses Gastrointestinal: Normal Bowel Sounds, No Organomegaly, No Pulsatile Mass, Non Tender, Soft Back: Normal Inspection, No CVA Tenderness, No Vertebral Tenderness Extremity: Normal Capillary Refill, Normal Inspection, Normal Range of Motion, Non Tender, No Calf Tenderness, No Pedal Edema Neurologic/Psychiatric: Alert, Oriented x3, No Motor/Sensory Deficits, Normal Mood/Affect Skin: Normal Color, Warm/Dry Lymphatic: No Adenopathy Results Results/Procedures Labs Laboratory Tests 05/31/18 08:45 Patient resulted labs reviewed. Assessment/Plan Admission Diagnosis Assessment: New diagnosis of COPD with exacerbation Heavy smoker Elevated BNP HTN Hypoxia Plan: Andrez Pena and Sridhar are appreciated O2 IV steroids ECHO Lasix Home meds Admission Status: Inpatient Order (span 2 midnights) Reason for Inpatient Admission: Severe hypoxia with elevated BNP will require further testing and IV steroids and O2 for 3 days Diagnosis/Problems Diagnosis/Problems (1) Hypoxia Status: Acute (2) COPD exacerbation Status: Acute (3) Elevated brain natriuretic peptide (BNP) level Status: Acute (4) Smoker Status: Chronic YANNA OLIVAS DO May 31, 2018 13:51
--- OUTSIDE RECORDS SUMMARY | 2018-05-31 13:54 | XMS REPORT | Continuity of Care Document ---
Author Author [facility] Address Unknown Phone Unavailable Allergies There is no data. Medications There is no data. Problems Date Dx Coded Attending Type Code Diagnosis Diagnosed By 07/29/2011 FREDERICK LONGORIA MD 607.84 IMPOTENCE OF ORGANIC ORIGIN 03/13/2012 FREDERICK LONGORIA MD 401.9 UNSPECIFIED ESSENTIAL HYPERTENSION Procedures Code [place] [address] ROUTINE VENIPUNCTURE 03/13/2012 25400 CMP 03/13/20121937484 GFR CALC (RESULT ONLY) 03/13/2012 Results Test [...] 5.0 mmol/L 3.5-5.3 Sodium 137 mmol/L 134-148 BMP - 09/29/16 12:01 Anion Gap 15 6-14 BUN 20 mg/dL 5-25 Calcium 9.6 mg/dL 8.3-10.4 Chloride 106 mmol/L 95-114 CO2 24 mEq/L 22-33 Creat 1.12 mg/dL 0.50-1.50 eGFR 65 mL/min/1.73m2 >59 Glucose 111 mg/dL 70-110 Osmo 292 280-295 Potassium 5.1 mmol/L 3.5-5.3 Sodium 140 mmol/L 134-148 [facility] - 11/10/17 08:10 GLUCOSE 129 mg/dL 65-99 UREA NITROGEN (BUN) 21 mg/dL 7-25 CREATININE 1.19 mg/dL 0.70-1.18 eGFR NON-AFR. MEXICAN 61 mL/min/1.73m2 > OR=60 eGFR 71 mL/min/1.73m2 [...] 57 U/L 10-35 ALT 81 U/L 9-46 Complete blood count (CBC) with automated white blood cell (WBC) differential - 05/31/18 08:45 Blood leukocytes automated count (number/volume) 8.0 10*3/uL 4.3-11.0 Blood erythrocytes automated count (number/volume) 3.74 10*6/uL 4.35-5.85 Venous blood hemoglobin measurement (mass/volume) 12.7 g/dL 13.3-17.7 Blood hematocrit (volume fraction) 38 % 40-54 Automated erythrocyte mean corpuscular volume 102 [foz_us] 80-99 Automated erythrocyte mean corpuscular hemoglobin (mass per erythrocyte) 34 pg 25-34 Automated erythrocyte mean corpuscular hemoglobin concentration measurement ( mass/volume) 33 g/dL 32-36 Automated erythrocyte distribution width ratio 14.4 % 10.0-14.5 Automated blood platelet count (count/volume) 232 10*3/uL 130-400 Automated blood platelet mean volume measurement 10.6 [foz_us] 7.4-10.4 Automated blood neutrophils/100 leukocytes 73 % 42-75 Automated blood lymphocytes/100 leukocytes 13 % 12-44 Blood monocytes/100 leukocytes 10 % 0-12 Automated blood eosinophils/100 leukocytes 4 % 0-10 Automated blood basophils/100 leukocytes 0 % 0-10 Blood neutrophils automated count (number/volume) 5.8 10*3 1.8-7.8 Blood lymphocytes automated count (number/volume) 1.1 10*3 1.0-4.0 Blood monocytes automated count (number/volume) 0.8 10*3 0.0-1.0 Automated eosinophil count 0.3 10*3/uL 0.0-0.3 Automated blood basophil count (count/volume) 0.0 10*3/uL 0.0-0.1 Comprehensive metabolic panel - 05/31/18 08:45 Serum or plasma sodium measurement (moles/volume) 135 mmol/L 135-145 Serum or plasma potassium measurement (moles/volume) 4.2 mmol/L 3.6-5.0 Serum or plasma chloride measurement (moles/volume) 103 mmol/L 98-107 Carbon dioxide 25 mmol/L 21-32 Serum or plasma anion gap determination (moles/volume) 7 mmol/L 5-14 Serum or plasma urea nitrogen measurement (mass/volume) 11 mg/dL 7-18 Serum or plasma creatinine measurement (mass/volume) 1.00 mg/dL 0.60-1.30 Serum or plasma urea nitrogen/creatinine mass ratio 11 NRG Serum or plasma creatinine measurement with calculation of estimated glomerular filtration rate > NRG Serum or plasma glucose measurement (mass/volume) 135 mg/dL 70-105 Serum or plasma calcium measurement (mass/volume) 9.2 mg/dL 8.5-10.1 Serum or plasma total bilirubin measurement (mass/volume) 0.4 mg/dL 0.1-1.0 Serum or plasma alkaline phosphatase measurement (enzymatic activity/volume) 72 U/L 40-136 Serum or plasma aspartate aminotransferase measurement (enzymatic activity/ volume) 28 U/L 5-34 Serum or plasma alanine aminotransferase measurement (enzymatic activity/volume ) 45 U/L 0-55 Serum or plasma protein measurement (mass/volume) 7.4 g/dL 6.4-8.2 Serum or plasma albumin measurement (mass/volume) 3.8 g/dL 3.2-4.5 CALCIUM CORRECTED 9.4 mg/dL 8.5-10.1 Serum or plasma C reactive protein measurement (mass/volume) - 05/31/18 08:45 Serum or plasma C reactive protein measurement (mass/volume) 7.44 mg /dL 0.00-0.50 Serum or plasma lithium measurement (moles/volume) - 05/31/18 08:45 BNP level 588.2 pg/mL <100.0 Influenza virus A and B antigen detection - 05/31/18 08:55 FLU RESULT NEGATIVE FOR INFLUENZA A AND B ANTIGENS BY IA NRG Encounters ACCT No. Visit Date/Time Discharge Status Pt. Type Provider Facility Loc./Unit Complaint [id number] 03/13/2012 14:09:00 03/13/2012 23:59:59 CLS Outpatient FREDERICK LONGORIA MD [id number] 05/03/2018 18:00:00 05/03/2018 23:59:59 CLS Outpatient RUSSELL ASHER [facility] [id number] 11/10/2017 08:00:00 Document Registration [id number] 05/31/2018 09:16:00 Document Registration [id number] 09/29/2016 11:58:00 09/29/2016 23:59:00 DIS Outpatient ИВАН PLATA [id number] 04/27/2016 14:00:00 04/27/2016 23:59:00 DIS Outpatient ИВАН PLATA [id number] 03/30/2016 16:41:00 03/30/2016 23:59:00 DIS Outpatient ИВАН PLATA [id number] 03/23/2016 17:47:00 03/23/2016 23:59:00 DIS Outpatient ИВАН PLATA [id number] 02/24/2016 09:45:00 02/24/2016 23:59:00 DIS Outpatient RUTH ADKINS [id number] 02/23/2016 00:00:00 02/23/2016 23:59:00 DIS Outpatient ИВАН PLATA [id number] 03/23/2016 17:47:00 Document Registration
[2018-05-31 13:55] VITALS: BP 159/66
[2018-05-31] MEDS ORDERED: ALPRAZolam 0.25 MG (XANAX) TAB PO PRN (14:00)
[2018-05-31] MEDS ORDERED: MELATONIN 3 MG TABLET PO PRN (14:00)
[2018-05-31] MEDS ORDERED: ONDANSETRON 4 MG/2 ML (SDV) Z0FRAN IVP PRN (14:00)
[2018-05-31] MEDS ORDERED: HYDROcodone/APAP 5 MG/325 MG (LORTAB) TAB PO PRN (14:00)
[2018-05-31] MEDS ORDERED: ONDANSETRON 4 MG (ZOFRAN) ORAL DISSOLVE TAB PO PRN (14:00)
[2018-05-31] MEDS ORDERED: CALCIUM CARBONATE 500 MG (TUMS) TAB.CHEW PO PRN (14:00)
[2018-05-31] MEDS ORDERED: ACETAMINOPHEN 500 MG TAB (TYLENOL) PO PRN (14:00)
[2018-05-31] MEDS ORDERED: DOCUSATE SODIUM 100 MG (COLACE) CAP PO PRN (14:00)
[2018-05-31] MEDS ORDERED: diphenhydrAMINE 25 MG TAB (BENADRYL) PO PRN (14:00)
[2018-05-31] MEDS ORDERED: LOPERAMIDE 2 MG (IMODIUM) CAP PO PRN (14:00)
[2018-05-31 14:39] LABS: ABG BASE EXCESS 1.6 MMOL/L (-2.5-2.5); ABG OXYGEN SATURATION 96 % (94-100); ABG PCO2 45 MMHG (35-45); ABG PH 7.38 (7.37-7.43); ABG PO2 73 MMHG (79-93); ABG TCO2 27.5 MMOL/L (21.0-31.0); ALLENS TEST YES-POS; INSPIRED O2 2; PATIENT TEMP 98.7; VENTILATOR NO
[2018-05-31] MEDS: RT-BUDESONIDE NEBS 0.5 MG/2ML (PULMICORT) AMP INH SCH ×2 (14:42→21:24)
[2018-05-31] MEDS: RT-ALBUTEROL/IPRATROPIUM 3 ML (DUONEB) VIAL IH SCH ×3 (14:43→21:24)
[2018-05-31] MEDS: FUROSEMIDE 40 MG/4 ML INJ (LASIX) IVP NR ×2 (15:11→15:13)
[2018-05-31 15:55] VITALS: BP 170/62
--- NOTE | 2018-05-31 15:56 | Consultation-Cardiology ---
HPI-Cardiology Cardiology Consultation: Date of Consultation 05/31/18 Time Seen by a Provider: 15:30 Date of Admission 05-31-18 Attending Physician Yanna Olivas DO Admitting Physician [place] Consulting Physician ZANE LU HPI: Chief Complaint: Progressive exertional dyspnea Mr. Whitaker is a 72 year old male admitted to [facility] from the ED with increasing shortness of breath. He reports he had been in usual state of health until approx a week ago when he "caught a cold". He states he has has had progressive exertional dyspnea over the last week. Denies any fever or chills. Denies any CP, but does report chest tightness. He reports chest congestion with lose productive cough. He denies any n/v/d. He denies any palpitations. He reports chronic pedal edema which is least in the morning and worse at the end of the day. He reports occ lightheadedness with quick changes in position, which is chronic. He denies any syncope or near syncope. He reports he has smoke approx 2 PPD for 50 years, than quit last summer, but recently resumed smoking approx 1 PPD of cigs. Review of Systems-Cardiology Review of Systems Constitutional: No chills, No fever; malaise Eyes: No vision change Ears/Nose/Throat: No epistaxis, No recent hearing loss Respiratory: As described under HPI Cardiovascular: As described under HPI Gastrointestinal: No constipation, No diarrhea, No nausea, No vomiting Genitourinary: No dysuria, No hematuria Musculoskeletal: no symptoms reported Skin: No rash, No ulcerations Psychiatric/Neurological: No anxiety, No depression, No seizure, No focal weakness Hematologic: No bleeding abnormalities XUM-Fuhpjw-Brjqze Hx Patient Social History Alcohol Use: Occasionally Uses Recreational Drug Use: No Smoking Status: Current Everyday Smoker Recent Foreign Travel: No Recent Infectious Disease Expo: No Past Medical History PMH As described under Assessment. Family Medical History Family Medical History: He denies any family h/o CAD or premature SCD. Allergies and Home Medications Allergies Coded Allergies: No Known Drug Allergies (Unverified , 12/15/11) Home Medications Amlodipine Besylate 10 Mg Tablet, 10 MG PO HS, (Reported) Aspirin 81 Mg Tablet.dr, 81 MG PO HS, (Reported) Azithromycin 250 Mg Tablet, 250 MG PO DAILY Prescribed by: YANNA OLIVAS on 06/02/18 1018 Ibuprofen 800 Mg Tablet, 800 MG PO TID PRN for PAIN-MILD, (Reported) Ipratropium/Albuterol Sulfate 3 Ml Ampul.neb, 3 ML IH RTQ4HR Prescribed by: YANNA OLIVAS on 06/02/18 1018 Losartan Potassium 100 Mg Tablet, 100 MG PO HS, (Reported) Metoprolol Succinate 25 Mg Tab.er.24h, 25 MG PO HS, (Reported) Prednisone 10 Mg Tab.ds.pk, 10 MG PO DAILY Take 6 tabs(60mg)daily,decrease by 1 tab(10MG)daily. Prescribed by: YANNA OLIVAS on 06/02/18 1018 Terazosin HCl 10 Mg Capsule, 10 MG PO HS, (Reported) Patient Home Medication List Home Medication List Reviewed: Yes Physical Exam-Cardiology Physical Exam Vital Signs/I&O 06/01/18 06/01/18 06/02/18 06/02/18 22:23 23:55 02:44 04:00 Temp 98.6 97.3 Pulse 88 84 Resp 20 18 B/P (MAP) 162/87 (112) 127/66 (86) Pulse Ox 95 97 97 O2 Delivery Nasal Cannula Nasal Cannula Nasal Cannula Nasal Cannula O2 Flow Rate 3.00 2.00 3.00 3.00 06/02/18 06/02/18 06/02/18 07:39 07:44 08:00 Temp 98.2 Pulse 73 Resp 18 B/P (MAP) 151/67 (95) Pulse Ox 93 98 93 O2 Delivery Nasal Cannula Nasal Cannula O2 Flow Rate 3.00 3.00 06/02/18 00:00 Intake Total 5140 ml Balance 5140 ml Capillary Refill : Less Than 3 SecondsLess Than 3 Seconds Constitutional: AAO x 3, well-developed, well-nourished HEENT: PERRL, hearing is well preserved, oral hygience is good Neck: No carotid bruit; carotid pulses are 2 + bilaterally Respiratory: chest expansion is symmetric, chest is bilaterally symmetric, rhonchi (scattered), other (diminished lower lobes bilat) Cardiovascular: regular rate-rhythm; No JVD; S1 and S2 Gastrointestinal: No tender; round, audible bowel sounds Rectal: deferred Extremities: no lower extremity edema bilateral Neurologic/Psychiatric: oriented x 3, grossly intact Skin: No rash, No ulcerations Data Review Labs Laboratory Tests 06/02/18 06:08: White Blood Count 14.9H, Red Blood Count 3.67L, Hemoglobin 12.1L, Hematocrit 38L , Mean Corpuscular Volume 104H, Mean Corpuscular Hemoglobin 33, Mean Corpuscular Hemoglobin Concent 32, Red Cell Distribution Width 14.3, Platelet Count 238, Mean Platelet Volume 10.7H, Neutrophils (%) (Auto) 90H, Lymphocytes ( %) (Auto) 8L, Monocytes (%) (Auto) 3, Eosinophils (%) (Auto) 0, Basophils (%) ( Auto) 0, Neutrophils # (Auto) 13.4H, Lymphocytes # (Auto) 1.1, Monocytes # (Auto ) 0.4, Eosinophils # (Auto) 0.0, Basophils # (Auto) 0.0, Neutrophils % (Manual) 86, Lymphocytes % (Manual) 7, Monocytes % (Manual) 7, Sodium Level 134L, Potassium Level 4.4, Chloride Level 102, Carbon Dioxide Level 21, Anion Gap 11, Blood Urea Nitrogen 34H, Creatinine 1.48H, Estimat Glomerular Filtration Rate 47 , BUN/Creatinine Ratio 23, Glucose Level 398H, Calcium Level 9.2, Corrected Calcium 9.4, Total Bilirubin 0.2, Aspartate Amino Transf (AST/SGOT) 24, Alanine Aminotransferase (ALT/SGPT) 35, Alkaline Phosphatase 84, B-Type Natriuretic Peptide 461.1H, Total Protein 7.2, Albumin 3.7 Microbiology 05/31/18 Influenza Types A,B Antigen (RACHAEL) - Final, Complete Radiology NAME: GINGER WHITAKER [facility] REC#: [id number] PT STATUS: ADM IN : 1945 PHYSICIAN: STANLEY MANCUSO MD ADMIT DATE: 05/31/18/ Signed Date of Exam: 05/31/18 CHEST PA/LAT (2 VIEW) INDICATION: Shortness of air, worsening in severity. Compared with exam 12/15/2011. FINDINGS: No alveolar consolidation. The heart size stable. No effusion or pneumothorax. Perihilar interstitial markings are more prominent and there is some thickening of the central airways which may reflect bronchitis or other reactive airway disease. The lung volumes within normal limits. IMPRESSION: Mild thickening of the central airways but no consolidating pneumonia, no pleural abnormality. Dictated by: Dictated on workstation # [id number] Dict: 05/31/18 0917 Trans: 05/31/18 1313 Interpreted by: EVITA CARVAJAL Electronically signed by: EVITA CARVAJAL 05/31/18 [id number] A/P-Cardiology Assessment/Admission Diagnosis Chest discomfort of undetermined etiology Progressive exertional dyspnea - likely multifactorial d/t prob COPD and URI H/O R CEA approx [address] Aguero (has not followed up) HTN HLD Tobaccoism - cessation advised BPH Elevated BMI 35 Discussion and Recomendations Chest discomfort of undetermined etiology - no evidence of ACS HTN - continue current medications Management of URI per medical/pulmonary services Probable COPD - management per pulmonary services Monitor lab EKG today Echocardiogram to eval LVEF and structure Lipid panel Further recs will be based on his hospital course We would like to thank medical services for this consut Clinical Quality Measures DVT/VTE Risk/Contraindication: Risk Factor Score Per Nursin RFS Level Per Nursing on Admit: 4+=Very High ZANE LOMBARDO May 31, 2018 15:56
--- NOTE | 2018-05-31 19:03 | Consultation-Cardiology ---
HPI-Cardiology Cardiology Consultation: Date of Consultation 05/31/18 Time Seen by a Provider: 17:35 Date of Admission Attending Physician Yanna Arizmendi DO Admitting Physician [facility] Consulting Physician FELI GUERRERO MD, MA, FACP, FACC, [facility], [facility] Physician requesting consult: Dr Arizmendi HPI: Chief Complaint: CC: Progressive exertional dyspnea HPI Mr. Whitaker is a 72 year old male admitted to [facility] from the ED with increasing shortness of breath. He reports he had been in usual state of health until approx a week ago when he "caught a cold". He states he has has had progressive exertional dyspnea over the last week. Denies any fever or chills. Denies any CP, but does report chest tightness. He reports chest congestion with lose productive cough. He denies any n/v/d. He denies any palpitations. He reports chronic pedal edema which is least in the morning and worse at the end of the day. He reports occ lightheadedness with quick changes in position, which is chronic. He denies any syncope or near syncope. He reports he has smoke approx 2 PPD for 50 years, than quit last summer, but recently resumed smoking approx 1 PPD of cigs. Review of Systems-Cardiology Review of Systems Constitutional: No chills, No fever; malaise Eyes: No vision change Ears/Nose/Throat: No epistaxis, No recent hearing loss Respiratory: As described under HPI Cardiovascular: As described under HPI Gastrointestinal: No constipation, No diarrhea, No nausea, No vomiting Genitourinary: No dysuria, No hematuria Musculoskeletal: no symptoms reported Skin: No rash, No ulcerations Psychiatric/Neurological: No anxiety, No depression, No seizure, No focal weakness Hematologic: No bleeding abnormalities All Other Systems Reviewed Negative Unless Noted: Yes [id number] Hx Patient Social History Marrital Status: single Employed/Student: employed ([employer] 35 years) Alcohol Use: Occasionally Uses Recreational Drug Use: No Smoking Status: Current Everyday Smoker Recent Foreign Travel: No Recent Infectious Disease Expo: No Past Medical History PMH As described under Assessment. Family Medical History Family Medical History: He denies any family h/o CAD or premature SCD. Allergies and Home Medications Allergies Coded Allergies: No Known Drug Allergies (Unverified , 9/12/12) Home Medications Amlodipine Besylate 10 Mg Tablet, 10 MG PO HS, (Reported) Aspirin 81 Mg Tablet.dr, 81 MG PO HS, (Reported) Ibuprofen 800 Mg Tablet, 800 MG PO TID PRN for PAIN-MILD, (Reported) Losartan Potassium 100 Mg Tablet, 100 MG PO HS, (Reported) Metoprolol Succinate 25 Mg Tab.er.24h, 25 MG PO HS, (Reported) Terazosin HCl 10 Mg Capsule, 10 MG PO HS, (Reported) Patient Home Medication List Home Medication List Reviewed: Yes Physical Exam-Cardiology Physical Exam Vital Signs/I&O 05/31/18 05/31/18 05/31/18 05/31/18 08:38 08:38 09:44 09:55 Temp 97.7 Pulse 67 Resp 22 B/P (MAP) 172/151 (158) Pulse Ox 84 96 95 O2 Delivery Room Air Nasal Cannula Nasal Cannula Nasal Cannula O2 Flow Rate 2.00 2.00 2.00 05/31/18 05/31/18 05/31/18 05/31/18 11:36 11:55 13:36 13:43 Temp 98.9 98.1 98.1 Pulse 86 47 47 Resp 16 20 20 B/P (MAP) 133/91 (105) 165/62 (96) 165/62 Pulse Ox 96 96 96 96 O2 Delivery Room Air Nasal Cannula Nasal Cannula Nasal Cannula O2 Flow Rate 2.00 2.00 2.00 05/31/18 05/31/18 05/31/18 13:55 14:43 15:55 Temp 99.0 99.3 Pulse 71 91 Resp 20 18 B/P (MAP) 159/66 (97) 170/62 (98) Pulse Ox 94 90 96 O2 Delivery Nasal Cannula Nasal Cannula Nasal Cannula O2 Flow Rate 2.00 2.00 3.00 Capillary Refill : Less Than 3 SecondsLess Than 3 Seconds Constitutional: AAO x 3, well-developed, well-nourished HEENT: PERRL, hearing is well preserved, oral hygience is good Neck: No carotid bruit; carotid pulses are 2 + bilaterally Respiratory: chest expansion is symmetric, chest is bilaterally symmetric, rhonchi (scattered), other (diminished lower lobes bilat) Cardiovascular: regular rate-rhythm; No JVD; S1 and S2 Gastrointestinal: No tender; round, audible bowel sounds Rectal: deferred Extremities: no lower extremity edema bilateral Neurologic/Psychiatric: oriented x 3, grossly intact Skin: No rash, No ulcerations Data Review Labs Laboratory Tests 05/31/18 08:45: White Blood Count 8.0, Red Blood Count 3.74L, Hemoglobin 12.7L, Hematocrit 38L, Mean Corpuscular Volume 102H, Mean Corpuscular Hemoglobin 34, Mean Corpuscular Hemoglobin Concent 33, Red Cell Distribution Width 14.4, Platelet Count 232, Mean Platelet Volume 10.6H, Neutrophils (%) (Auto) 73, Lymphocytes (%) (Auto) 13 , Monocytes (%) (Auto) 10, Eosinophils (%) (Auto) 4, Basophils (%) (Auto) 0, Neutrophils # (Auto) 5.8, Lymphocytes # (Auto) 1.1, Monocytes # (Auto) 0.8, Eosinophils # (Auto) 0.3, Basophils # (Auto) 0.0, Sodium Level 135, Potassium Level 4.2, Chloride Level 103, Carbon Dioxide Level 25, Anion Gap 7, Blood Urea Nitrogen 11, Creatinine 1.00, Estimat Glomerular Filtration Rate > 60, BUN/ Creatinine Ratio 11, Glucose Level 135H, Calcium Level 9.2, Corrected Calcium 9.4, Total Bilirubin 0.4, Aspartate Amino Transf (AST/SGOT) 28, Alanine Aminotransferase (ALT/SGPT) 45, Alkaline Phosphatase 72, C-Reactive Protein High Sensitivity 7.44H, B-Type Natriuretic Peptide 588.2H, Total Protein 7.4, Albumin 3.8 05/31/18 14:32: Blood Gas Puncture Site R RADIAL, Blood Gas Patient Temperature 98.7, Arterial Blood pH 7.38, Arterial Blood Partial Pressure CO2 45, Arterial Blood Partial Pressure O2 73L, Arterial Blood HCO3 26, Arterial Blood Total CO2 27.5, Arterial Blood Oxygen Saturation 96, Arterial Blood Base Excess 1.6, Jayden Test YES-POS, Blood Gas Ventilator Setting NO, Blood Gas Inspired Oxygen 2 05/31/18 15:05: Troponin I < 0.028 Microbiology 05/31/18 Influenza Types A,B Antigen (RACHAEL) - Final, Complete Laboratory Tests 05/31/18 08:45 A/P-Cardiology Assessment/Admission Diagnosis Chest discomfort of undetermined etiology Progressive exertional dyspnea - likely multifactorial d/t prob COPD and URI Elevated BNP, probably due to transient hypoxia from COPD and/or mild acute diastolic CHF Echo on 05/31/18: LVEF 60-65%, no valvular disease H/O R CEA approx [address] Aguero (has not followed up) HTN HLD Tobaccoism - cessation advised BPH Elevated BMI 35 Discussion and Recomendations * Chest discomfort of undetermined etiology - no evidence of ACS * Management of URI and COPD per medical/pulmonary services * Monitor lab * Further recs will be based on his hospital course * I had a detailed discussion with him and his family Clinical Quality Measures DVT/VTE Risk/Contraindication: Risk Factor Score Per Nursin RFS Level Per Nursing on Admit: 4+=Very High FELI GUERRERO MD FACP FAC CCDS May 31, 2018 19:03
[2018-05-31 19:28] VITALS: BP 181/72
[2018-05-31] MEDS: SENNA W/DOCUSATE (SENOKOT S) TABLET PO SCH (21:48)
[2018-05-31] MEDS: amLODIPine 10 MG (NORVASC) TAB PO SCH (21:49)
[2018-05-31] MEDS: TERAZOSIN 5 MG (HYTRIN) CAPSULE PO SCH (21:49)
[2018-05-31] MEDS: LOSARTAN 100 MG (COZAAR) TABLET PO SCH (21:49)
[2018-05-31] MEDS: ASPIRIN E.C. 81 MG (ECOTRIN) TAB PO SCH (21:49)
[2018-06-01] VITALS (7 sets, daily range): BP systolic 86–169; BP diastolic 49–87
[2018-06-01] MEDS: methylPREDNISolone 40 MG/ML (Solu-MEDROL) VIAL IV SCH ×5 (00:08→23:55)
[2018-06-01] MEDS: RT-ALBUTEROL/IPRATROPIUM 3 ML (DUONEB) VIAL IH SCH ×5 (01:37→22:18)
[2018-06-01 04:57] LABS: ALANINE AMINOTRANSFERASE 39 U/L (0-55); ALBUMIN 3.7 GM/DL (3.2-4.5); ALKALINE PHOSPHATASE 87 U/L (40-136); BILIRUBIN,TOTAL 0.2 MG/DL (0.1-1.0); BUN/CREATININE RATIO 13; CALCIUM 9.2 MG/DL (8.5-10.1); CARBON DIOXIDE 25 MMOL/L (21-32); CHLORIDE 101 MMOL/L (98-107); CHOLESTEROL 157 MG/DL (< 200); CREATININE SERUM 1.52 MG/DL (0.60-1.30); GFR ESTIMATED 45; GLUCOSE 374 MG/DL (70-105); HDL CHOLESTEROL 37 MG/DL (40-60); MAGNESIUM 2.2 MG/DL (1.8-2.4); POTASSIUM 4.7 MMOL/L (3.6-5.0); SODIUM 136 MMOL/L (135-145); TOTAL PROTEIN 7.4 GM/DL (6.4-8.2); TRIGLYCERIDES 78 MG/DL (<150); VLDL CHOLESTEROL 16 MG/DL (5-40)
[2018-06-01] MEDS: RT-BUDESONIDE NEBS 0.5 MG/2ML (PULMICORT) AMP INH SCH ×2 (07:34→22:18)
[2018-06-01] MEDS: SENNA W/DOCUSATE (SENOKOT S) TABLET PO SCH ×3 (09:07→21:09)
--- NOTE | 2018-06-01 09:32 | Progress Note-Hospitalist ---
Subjective HPI/CC On Admission Date Seen by Provider: Jun 01, 2018 Time Seen by Provider: 09:00 Chief complaint: Shortness of breath. HPI: This is a 72yoWM [facility] Pt of Daniel Niko who has a past medical history of hypertension but heavy tobacco use who presented to the ER with shortness of breath and wheezing. Chest X-ray did not show any infiltrate but he was hypoxic in the 80 range in a non-oxygen dependent Pt that obviously has a new diagnosis of COPD. Pt denied any history of using a CPAP machine or home Oxygen. Smoking cessation was counseled in which he said he quit yesterday. His daughter is at the bedside. He did report having a head cold this past weekend that worsened to the point he could no longer go on at home. He denied any fever or chills. He has been placed on Azithromycin and I have consulted Dr. Pena. Elevated BNP was noted so I ordered an echocardiogram and Dr. Pena order IV Lasix along with his consultation expertise, and I have consulted Dr. Waller. Subjective/Events-last exam Lungs are much improved. Echocardiogram reviewed by cardiology and Pt was given Lasix and creatinine increased to 1.5. Responding to breathing treatments and oxygen well. He is overall slept much better last night and denies any cough. Appreciate pulmonology and cardiology help. Review of Systems General: Fatigue Pulmonary: Dyspnea Objective Exam Vital Signs Vital Signs Date Time Temp Pulse Resp B/P (MAP) Pulse Ox O2 Delivery O2 Flow Rate FiO2 06/02/18 15:20 06/02/18 12:00 98.2 91 18 95 Nasal Cannula 3.00 Capillary Refill : Less Than 3 SecondsLess Than 3 Seconds General Appearance: No Apparent Distress, WD/WN, Chronically ill, Obese HEENT: PERRL/EOMI, Normal ENT Inspection, Pharynx Normal, Moist Mucous Membranes Neck: Full Range of Motion, Normal Inspection, Non Tender Respiratory: Chest Non Tender, No Accessory Muscle Use, No Respiratory Distress , Crackles, Decreased Breath Sounds, Wheezing Cardiovascular: Regular Rate, Rhythm, No Edema, No Gallop, No JVD, No Murmur, Normal Peripheral Pulses Gastrointestinal: Normal Bowel Sounds, No Organomegaly, No Pulsatile Mass, Non Tender, Soft Back: Normal Inspection, No CVA Tenderness, No Vertebral Tenderness Extremity: Normal Capillary Refill, Normal Inspection, Normal Range of Motion, Non Tender, No Calf Tenderness, No Pedal Edema Neurologic/Psychiatric: Alert, Oriented x3, No Motor/Sensory Deficits, Normal Mood/Affect Skin: Normal Color, Warm/Dry Lymphatic: No Adenopathy Results/Procedures Lab Laboratory Tests 06/02/18 06:08 Patient resulted labs reviewed. Assessment/Plan Assessment and Plan Assess & Plan/Chief Complaint Assessment: AECOPD new COPD dx ARF Smoker HTN Elevated BNP Plan: Lasix, IV steroids, O2, Nebs Cardiology and Pulmonology consultations are appreciated Diagnosis/Problems Diagnosis/Problems (1) Hypoxia Status: Acute (2) COPD exacerbation Status: Acute (3) Elevated brain natriuretic peptide (BNP) level Status: Acute (4) Smoker Status: Chronic Clinical Quality Measures DVT/VTE Risk/Contraindication: Risk Factor Score Per Nursin RFS Level Per Nursing on Admit: 4+=Very High ELMIRA OLIVAS DO Jun 01, 2018 09:32
[2018-06-01] MEDS ORDERED: meTOproloL SUCCINATE 50 MG (TOPROL XL) TAB PO NR (10:00)
--- NOTE | 2018-06-01 10:33 | Pulmonary Progress Note ---
Subjective Time Seen by a Provider: 06:30 Subjective/Events-last exam SOB and worse with exertion. Sepsis Event Evaluation Height, Weight, BMI Height: 6'0.00" Weight: 258lbs. 7.0oz. [id number]; 35.0 BMI Method:Stated Exam Exam Vital Signs Date Time Temp Pulse Resp B/P (MAP) Pulse Ox O2 Delivery O2 Flow Rate FiO2 06/01/18 08:00 98.2 89 22 155/61 (92) 93 Nasal Cannula 3.00 06/01/18 07:37 Nasal Cannula 3.00 06/01/18 07:35 94 Nasal Cannula 3.00 06/01/18 03:48 98.2 89 18 168/52 (90) 96 Nasal Cannula 3.00 06/01/18 01:37 95 Nasal Cannula 3.00 06/01/18 00:24 98.6 98 20 169/52 (91) 96 Nasal Cannula 3.00 05/31/18 21:30 Nasal Cannula 3.00 05/31/18 21:24 95 Nasal Cannula 3.00 05/31/18 20:00 Nasal Cannula 2.00 05/31/18 19:28 99.3 94 20 181/72 (108) 95 Nasal Cannula 3.00 05/31/18 15:55 99.3 91 18 170/62 (98) 96 Nasal Cannula 3.00 05/31/18 14:43 90 Nasal Cannula 2.00 05/31/18 13:55 99.0 71 20 159/66 (97) 94 Nasal Cannula 2.00 05/31/18 13:43 98.1 47 20 165/62 96 Nasal Cannula 2.00 05/31/18 13:36 96 Nasal Cannula 2.00 05/31/18 11:55 98.1 47 20 165/62 (96) 96 Nasal Cannula 2.00 05/31/18 11:36 98.9 86 16 133/91 (105) 96 Room Air I & O 06/01/18 07:00 Intake Total 2200 ml Balance 2200 ml Height & Weight Height: 6'0.00" Weight: 258lbs. 7.0oz. 117.626859ac; 35.0 BMI Method:Stated General Appearance: No Apparent Distress, Anxious HEENT: PERRL/EOMI, Pharynx Normal Neck: Full Range of Motion, Non Tender, Supple Respiratory: Chest Non Tender, Normal Breath Sounds, No Accessory Muscle Use, No Respiratory Distress Cardiovascular: Regular Rate, Rhythm, No Edema, No Gallop Capillary Refill: Less Than 3 Seconds Gastrointestinal: normal bowel sounds, non tender, soft Extremity: Normal Capillary Refill, Normal Inspection, Normal Range of Motion Neurologic/Psychiatric: Alert, Oriented x3 Skin: Normal Color, Warm/Dry Lymphatic: No Adenopathy Results Lab Laboratory Tests 05/31/18 08:45 06/01/18 04:10 Assessment/Plan Assessment/Plan Acute SOB with wheezing Acute bronchitis with probable COPDAE -Solumedrol 40IV Q 6 -Oxygen - Duoneb, -PT will need out pt PFT to r/o COPD Elevated BNP -Check Troponin X3 Q6 hours apart -echocardiogram - EF 60-65% Tobacco hx -Education MADELYN ISBELL DO Jun 01, 2018 10:33
--- NOTE | 2018-06-01 11:16 | NUR ---
home oxygen study pt resting on room air for 30 minutes spo2 dropped to 90, pt walked on room air desated to 87%, pt will require 3 lpm nasal cannula at all times
--- NOTE | 2018-06-01 11:18 | Progress Note-Cardiology ---
Cardiology SOAP Progress Note Subjective: Sitting up at the bedside. State he feels his breathing is getting better. No c/o CP or palpitations. Objective: I&O/Vital Signs 06/01/18 06/01/18 06/01/18 06/01/18 07:35 07:37 08:00 08:00 Temp 98.2 Pulse 89 Resp 22 B/P (MAP) 155/61 (92) Pulse Ox 94 93 O2 Delivery Nasal Cannula Nasal Cannula Nasal Cannula Nasal Cannula O2 Flow Rate 3.00 3.00 3.00 2.00 06/01/18 06/01/18 06/01/18 06/01/18 10:47 11:14 12:00 15:11 Temp 98.5 Pulse 80 Resp 20 B/P (MAP) 128/53 (78) Pulse Ox 93 93 96 94 O2 Delivery Nasal Cannula Nasal Cannula Nasal Cannula O2 Flow Rate 3.00 3.00 3.00 3.00 06/01/18 16:06 Temp 98.4 Pulse 79 Resp 18 B/P (MAP) 134/65 (88) Pulse Ox 97 O2 Delivery Nasal Cannula O2 Flow Rate 3.00 06/01/18 00:00 Intake Total 1700 ml Balance 1700 ml Weight (Pounds): 258 Weight (Ounces): 7.0 Weight (Calculated Kilograms): 117.530050 Constitutional: AAO x 3, well-developed, well-nourished Respiratory: chest expansion is symmetric, chest is bilaterally symmetric, rhonchi (scattered), other (diminished lower lobes bilat) Cardiovascular: regular rate-rhythm; No JVD; S1 and S2 Gastrointestional: No tender; round, audible bowel sounds Extremities: no lower extremity edema bilateral Neurologic/Psychiatric: oriented x 3, grossly intact Skin: No rash, No ulcerations Results/Procedures: Labs Laboratory Tests 05/31/18 23:55: Troponin I < 0.028 06/01/18 04:10: Troponin I < 0.028, Sodium Level 136, Potassium Level 4.7, Chloride Level 101, Carbon Dioxide Level 25, Anion Gap 10, Blood Urea Nitrogen 20H, Creatinine 1.52H , Estimat Glomerular Filtration Rate 45, BUN/Creatinine Ratio 13, Glucose Level 374H, Calcium Level 9.2, Corrected Calcium 9.4, Magnesium Level 2.2, Total Bilirubin 0.2, Aspartate Amino Transf (AST/SGOT) 24, Alanine Aminotransferase ( ALT/SGPT) 39, Alkaline Phosphatase 87, Total Protein 7.4, Albumin 3.7, Triglycerides Level 78, Cholesterol Level 157, LDL Cholesterol Direct 104, VLDL Cholesterol 16, HDL Cholesterol 37L Microbiology 05/31/18 Influenza Types A,B Antigen (RACHAEL) - Final, Complete A/P: Assessment: Chest discomfort of undetermined etiology Progressive exertional dyspnea - likely multifactorial d/t prob COPD and URI Elevated BNP, probably due to transient hypoxia from COPD and/or mild acute diastolic CHF Echo on 05/31/18: LVEF 60-65%, no valvular disease H/O R CEA approx [address] Aguero (has not followed up) HTN HLD Tobaccoism - cessation advised BPH Elevated BMI 35 Plan: * Chest discomfort of undetermined etiology - no evidence of ACS * Management of URI and COPD per medical/pulmonary services * Monitor lab * BP not well controlled - increase BB * Advise further cardiac risk stratification as an out pt once acute illness has resolved Physician Assessment Physician Assessment Gen malaise. Mod exertional shortness of breath. No cp or palp or syncope Lungs: fair to good air entry, diminished at the bases Cor: reg Ext: no c/c/e A&R * As documented in our note above that I updated (italics) and as noted below * Increase bb * Monitor labs ZANE LOMBARDO Jun 01, 2018 11:18 FELI GUERRERO MD FACP FAC CCDS Jun 01, 2018 17:04
[2018-06-01] MEDS: AZITHROMYCIN 250 MG TAB (ZITHROMAX) PO SCH (11:19)
--- NOTE | 2018-06-01 13:48 | NUR ---
CM/SS, respond to consult. DME: Coordinated new home O2 with patient/fiance preferred agency, [facility]. Anticipate discharge tomorrow, informed agency to deliver portable to patient room for transport home and partner with patient about home setup. Patient was IADL of all prior to onset of illness and did not have home O2. He is hopeful this is temporary and he will be able to restore to full wellness without needing O2. Fiance here and supportive. They identify no other needs.
[2018-06-01] MEDS: TERAZOSIN 5 MG (HYTRIN) CAPSULE PO SCH (21:09)
[2018-06-01] MEDS: LOSARTAN 100 MG (COZAAR) TABLET PO SCH (21:09)
[2018-06-01] MEDS: amLODIPine 10 MG (NORVASC) TAB PO SCH (21:09)
[2018-06-01] MEDS: ASPIRIN E.C. 81 MG (ECOTRIN) TAB PO SCH (21:09)
[2018-06-02] MEDS: RT-ALBUTEROL/IPRATROPIUM 3 ML (DUONEB) VIAL IH SCH ×3 (02:44→11:38)
[2018-06-02 04:00] VITALS: BP 127/66
[2018-06-02] MEDS: methylPREDNISolone 40 MG/ML (Solu-MEDROL) VIAL IV SCH ×2 (05:27→13:38)
[2018-06-02 06:44] LABS: BASOPHILS % (AUTO) 0 % (0-10); EOSINOPHILS % (AUTO) 0 % (0-10); HEMATOCRIT 38 % (40-54); HEMOGLOBIN 12.1 G/DL (13.3-17.7); LYMPHOCYTES # (AUTO) 1.1 X 10^3 (1.0-4.0); LYMPHOCYTES % (AUTO) 8 % (12-44); MEAN CORPUSCULAR HEMOGLOBIN 33 PG (25-34); MEAN CORPUSCULAR HGB CONC 32 G/DL (32-36); MEAN CORPUSCULAR VOLUME 104 FL (80-99); MEAN PLATELET VOLUME 10.7 FL (7.4-10.4); MONOCYTES # (AUTO) 0.4 X 10^3 (0.0-1.0); MONOCYTES % (AUTO) 3 % (0-12); NEUTROPHILS # (AUTO) 13.4 X 10^3 (1.8-7.8); NEUTROPHILS % (AUTO) 90 % (42-75); PLATELET COUNT 238 10^3/uL (130-400); RED CELL DISTRIBUTION WIDTH 14.3 % (10.0-14.5); WHITE BLOOD COUNT 14.9 10^3/uL (4.3-11.0)
[2018-06-02 07:05] LABS: ALBUMIN 3.7 GM/DL (3.2-4.5); BILIRUBIN,TOTAL 0.2 MG/DL (0.1-1.0); CALCIUM 9.2 MG/DL (8.5-10.1); CREATININE SERUM 1.48 MG/DL (0.60-1.30); POTASSIUM 4.4 MMOL/L (3.6-5.0); TOTAL PROTEIN 7.2 GM/DL (6.4-8.2)
--- NOTE | 2018-06-02 07:09 | Pulmonary Progress Note ---
Sepsis Event Evaluation Height, Weight, BMI Height: 6'0.00" Weight: 249lbs. 6.0oz. 113.664668cw; 35.0 BMI Method:Stated Exam Exam Vital Signs Date Time Temp Pulse Resp B/P (MAP) Pulse Ox O2 Delivery O2 Flow Rate FiO2 06/02/18 04:00 97.3 84 18 127/66 (86) 97 Nasal Cannula 3.00 06/02/18 02:44 97 Nasal Cannula 3.00 06/01/18 23:55 98.6 88 20 162/87 (112) 95 Nasal Cannula 2.00 06/01/18 22:23 Nasal Cannula 3.00 06/01/18 22:18 95 Nasal Cannula 3.00 06/01/18 20:00 Nasal Cannula 2.00 06/01/18 19:44 98.4 84 20 86/49 (61) 95 Nasal Cannula 3.00 06/01/18 16:06 98.4 79 18 134/65 (88) 97 Nasal Cannula 3.00 06/01/18 15:11 94 Nasal Cannula 3.00 06/01/18 12:00 98.5 80 20 128/53 (78) 96 Nasal Cannula 3.00 06/01/18 11:14 93 3.00 06/01/18 10:47 93 Nasal Cannula 3.00 06/01/18 08:00 Nasal Cannula 2.00 06/01/18 08:00 98.2 89 22 155/61 (92) 93 Nasal Cannula 3.00 06/01/18 07:37 Nasal Cannula 3.00 06/01/18 07:35 94 Nasal Cannula 3.00 I & O 06/02/18 07:00 Intake Total 5590 ml Balance 5590 ml Height & Weight Height: 6'0.00" Weight: 249lbs. 6.0oz. 113.455505gc; 35.0 BMI Method:Stated General Appearance: No Apparent Distress, Anxious HEENT: PERRL/EOMI, Pharynx Normal Neck: Full Range of Motion, Non Tender, Supple Respiratory: Chest Non Tender, Normal Breath Sounds, No Accessory Muscle Use, No Respiratory Distress Cardiovascular: Regular Rate, Rhythm, No Edema, No Gallop Capillary Refill: Less Than 3 Seconds Gastrointestinal: normal bowel sounds, non tender, soft Extremity: Normal Capillary Refill, Normal Inspection, Normal Range of Motion Neurologic/Psychiatric: Alert, Oriented x3 Skin: Normal Color, Warm/Dry Lymphatic: No Adenopathy Results Lab Laboratory Tests 05/31/18 08:45 06/01/18 04:10 06/02/18 06:08 Assessment/Plan Assessment/Plan Acute SOB with wheezing Acute bronchitis with probable COPDAE -Solumedrol 40IV Q 6 -Oxygen - Duoneb, -PT will need out pt PFT to r/o COPD Elevated BNP -neg Troponin X3 -echocardiogram - EF 60-65% Tobacco hx -Education MADELYN ISBELL DO Jun 02, 2018 07:09
[2018-06-02 07:24] LABS: LYMPHOCYTES % (MANUAL) 7 %; MONOCYTES % (MANUAL) 7 %; NEUTROPHILS % (MANUAL) 86 %
[2018-06-02] MEDS: RT-BUDESONIDE NEBS 0.5 MG/2ML (PULMICORT) AMP INH SCH (07:41)
[2018-06-02 08:00] VITALS: BP 151/67
[2018-06-02] MEDS ORDERED: meTOproloL SUCCINATE 50 MG (TOPROL XL) TAB PO SCH (09:00)
[2018-06-02] MEDS: SENNA W/DOCUSATE (SENOKOT S) TABLET PO SCH (09:25)
[2018-06-02] MEDS: AZITHROMYCIN 250 MG TAB (ZITHROMAX) PO SCH (09:25)
[2018-06-02] MEDS ORDERED: IPRA3AMP31 IH (10:18)
[2018-06-02] MEDS ORDERED: AZIT250T12 PO (10:18)
[2018-06-02] MEDS ORDERED: PRED10TA22 PO (10:18)
--- NOTE | 2018-06-02 10:19 | Discharge Summary-Hospitalist ---
Diagnosis/Chief Complaint Date of Admission May 31, 2018 at 11:18 Date of Discharge Discharge Date: Jun 02, 2018 Admission Diagnosis Assessment: New diagnosis of COPD with exacerbation Heavy smoker Elevated BNP HTN Hypoxia Plan: Andrez Pena and Sridhar are appreciated O2 IV steroids ECHO Lasix Home meds Discharge Diagnosis (1) Hypoxia Status: Acute (2) COPD exacerbation Status: Acute (3) Elevated brain natriuretic peptide (BNP) level Status: Acute (4) Smoker Status: Chronic Discharge Summary Discharge Physical Exam Allergies: Coded Allergies: No Known Drug Allergies (Unverified , 12/15/11) Vitals & I&Os Vital Signs Date Time Temp Pulse Resp B/P (MAP) Pulse Ox O2 Delivery O2 Flow Rate FiO2 06/02/18 15:20 06/02/18 12:00 98.2 91 18 95 Nasal Cannula 3.00 General Appearance: No Apparent Distress, Anxious HEENT: PERRL/EOMI, Pharynx Normal Respiratory: Chest Non Tender, Normal Breath Sounds, No Accessory Muscle Use, No Respiratory Distress Cardiovascular: Regular Rate, Rhythm, No Edema, No Gallop Gastrointestinal: Normal Bowel Sounds, No Organomegaly, No Pulsatile Mass, Non Tender, Soft Extremity: Normal Capillary Refill, Normal Inspection, Normal Range of Motion Skin: Normal Color, Warm/Dry Neurologic/Psychiatric: Alert, Oriented x3 Hospital Course Was the Problem List Reviewed?: Yes Pr had an uneventful hospital course. He was admitted diagnosed with COPD and counseled for smoking sensation. Pt did require oxygen and that was set up for DC at [address] Pena saw him in consultation along with cardiology and deemed pt stable and improved. Pt will go home on steroid taper dose and a few more days of the Azithromycin for the anti-inflammatory effects and aggressive smoking sensation counseled. Labs (last 24 hrs) Laboratory Tests 06/02/18 06:08: White Blood Count 14.9H, Red Blood Count 3.67L, Hemoglobin 12.1L, Hematocrit 38L , Mean Corpuscular Volume 104H, Mean Corpuscular Hemoglobin 33, Mean Corpuscular Hemoglobin Concent 32, Red Cell Distribution Width 14.3, Platelet Count 238, Mean Platelet Volume 10.7H, Neutrophils (%) (Auto) 90H, Lymphocytes ( %) (Auto) 8L, Monocytes (%) (Auto) 3, Eosinophils (%) (Auto) 0, Basophils (%) ( Auto) 0, Neutrophils # (Auto) 13.4H, Lymphocytes # (Auto) 1.1, Monocytes # (Auto ) 0.4, Eosinophils # (Auto) 0.0, Basophils # (Auto) 0.0, Neutrophils % (Manual) 86, Lymphocytes % (Manual) 7, Monocytes % (Manual) 7, Sodium Level 134L, Potassium Level 4.4, Chloride Level 102, Carbon Dioxide Level 21, Anion Gap 11, Blood Urea Nitrogen 34H, Creatinine 1.48H, Estimat Glomerular Filtration Rate 47 , BUN/Creatinine Ratio 23, Glucose Level 398H, Calcium Level 9.2, Corrected Calcium 9.4, Total Bilirubin 0.2, Aspartate Amino Transf (AST/SGOT) 24, Alanine Aminotransferase (ALT/SGPT) 35, Alkaline Phosphatase 84, B-Type Natriuretic Peptide 461.1H, Total Protein 7.2, Albumin 3.7 Microbiology 05/31/18 Influenza Types A,B Antigen (RACHAEL) - Final, Complete Patient resulted labs reviewed. Pending Labs Discussion & Recommendations Discharge Planning: <30 minutes discharge planning Discharge Home Medications: Active Scripts Active Metoprolol Succinate 50 Mg Tab.er.24h 50 Mg PO DAILY Prednisone 10 Mg Tab.ds.pk 10 Mg PO DAILY Take 6 tabs(60mg)daily,decrease by 1 tab(10MG)daily. Iprat-Albut 0.5-3(2.5) mg/3 ml (Ipratropium/Albuterol Sulfate) 3 Ml Ampul.neb 3 Ml IH RTQ4HR Azithromycin 250 Mg Tablet 250 Mg PO DAILY Reported Ibuprofen 800 Mg Tablet 800 Mg PO TID PRN Losartan Potassium 100 Mg Tablet 100 Mg PO HS Terazosin HCl 10 Mg Capsule 10 Mg PO HS Amlodipine Besylate 10 Mg Tablet 10 Mg PO HS Aspirin EC (Aspirin) 81 Mg Tablet.dr 81 Mg PO HS Instructions to patient/family Please see electronic discharge instructions given to patient. Clinical Quality Measures DVT/VTE Risk/Contraindication: Risk Factor Score Per Nursin RFS Level Per Nursing on Admit: 4+=Very High ELMIRA OLIVAS DO Jun 02, 2018 10:19
--- NOTE | 2018-06-02 10:26 | Progress Note-Cardiology ---
Cardiology SOAP Progress Note Subjective: Sitting up in the side of the bed. States he is feeling better. He is going home today. No c/o CP, palpitations, syncope or near syncope. Reports frequent productive cough. Objective: I&O/Vital Signs 06/01/18 06/02/18 06/02/18 06/02/18 23:55 02:44 04:00 07:39 Temp 98.6 97.3 Pulse 88 84 Resp 20 18 B/P (MAP) 162/87 (112) 127/66 (86) Pulse Ox 95 97 97 93 O2 Delivery Nasal Cannula Nasal Cannula Nasal Cannula Nasal Cannula O2 Flow Rate 2.00 3.00 3.00 3.00 06/02/18 06/02/18 07:44 08:00 Temp 98.2 Pulse 73 Resp 18 B/P (MAP) 151/67 (95) Pulse Ox 98 93 O2 Delivery Nasal Cannula O2 Flow Rate 3.00 06/02/18 00:00 Intake Total 5140 ml Balance 5140 ml Weight (Pounds): 249 Weight (Ounces): 6.0 Weight (Calculated Kilograms): 113.878047 Constitutional: AAO x 3, well-developed, well-nourished Respiratory: chest expansion is symmetric, chest is bilaterally symmetric, rhonchi (scattered), other (diminished lower lobes bilat) Cardiovascular: regular rate-rhythm; No JVD; S1 and S2 Gastrointestional: No tender; round, audible bowel sounds Extremities: no lower extremity edema bilateral Neurologic/Psychiatric: oriented x 3, grossly intact Skin: No rash, No ulcerations Results/Procedures: Labs Laboratory Tests 06/02/18 06:08: White Blood Count 14.9H, Red Blood Count 3.67L, Hemoglobin 12.1L, Hematocrit 38L , Mean Corpuscular Volume 104H, Mean Corpuscular Hemoglobin 33, Mean Corpuscular Hemoglobin Concent 32, Red Cell Distribution Width 14.3, Platelet Count 238, Mean Platelet Volume 10.7H, Neutrophils (%) (Auto) 90H, Lymphocytes ( %) (Auto) 8L, Monocytes (%) (Auto) 3, Eosinophils (%) (Auto) 0, Basophils (%) ( Auto) 0, Neutrophils # (Auto) 13.4H, Lymphocytes # (Auto) 1.1, Monocytes # (Auto ) 0.4, Eosinophils # (Auto) 0.0, Basophils # (Auto) 0.0, Neutrophils % (Manual) 86, Lymphocytes % (Manual) 7, Monocytes % (Manual) 7, Sodium Level 134L, Potassium Level 4.4, Chloride Level 102, Carbon Dioxide Level 21, Anion Gap 11, Blood Urea Nitrogen 34H, Creatinine 1.48H, Estimat Glomerular Filtration Rate 47 , BUN/Creatinine Ratio 23, Glucose Level 398H, Calcium Level 9.2, Corrected Calcium 9.4, Total Bilirubin 0.2, Aspartate Amino Transf (AST/SGOT) 24, Alanine Aminotransferase (ALT/SGPT) 35, Alkaline Phosphatase 84, B-Type Natriuretic Peptide 461.1H, Total Protein 7.2, Albumin 3.7 Microbiology 05/31/18 Influenza Types A,B Antigen (RACHAEL) - Final, Complete A/P: Assessment: Chest discomfort of undetermined etiology Progressive exertional dyspnea - likely multifactorial d/t prob COPD and URI Elevated BNP, probably due to transient hypoxia from COPD and/or mild acute diastolic CHF Echo on 05/31/18: LVEF 60-65%, no valvular disease H/O R CEA approx [address] Aguero (has not followed up) HTN HLD Tobaccoism - cessation advised BPH Elevated BMI 35 Plan: * Chest discomfort of undetermined etiology - no evidence of ACS * Management of URI and COPD per medical/pulmonary services * Monitor lab * BP improved with increased dose of BB * Advise further cardiac risk stratification as an out pt once acute illness has resolved * Advise out pt f/u ZANE LOMBARDO Jun 02, 2018 10:26
[2018-06-02] MEDS ORDERED: METO-370 PO (10:34)
[2018-06-02 12:00] VITALS: BP 162/93
== END 2018-06-02 14:30 | disposition home or self-care (01) | DRG 190 ==
LOC: EDUNIT# 08:33 → ER 08:34 → 4TH 11:18
PROVIDERS: ADMIT Internal Medicine; ATTEND Internal Medicine
DX: J44.0 Chronic obstructive pulmonary disease with (acute) lower respiratory infection (principal); J20.9 Acute bronchitis, unspecified; J44.1 Chronic obstructive pulmonary disease with (acute) exacerbation; I11.0 Hypertensive heart disease with heart failure; I50.31 Acute diastolic (congestive) heart failure; R07.89 Other chest pain; R09.02 Hypoxemia; F17.210 Nicotine dependence, cigarettes, uncomplicated; M19.91 Primary osteoarthritis, unspecified site; E78.5 Hyperlipidemia, unspecified; N40.0 Benign prostatic hyperplasia without lower urinary tract symptoms; E66.9 Obesity, unspecified; Z68.35 Body mass index [BMI] 35.0-35.9, adult
CPT/HCPCS: 36415; 36600; 71046; 80053; 80061; 82805; 83735; 83880; 84484; 85007; 85025; 85027; 86141; 87804; 93005; 93041; 93306; 94640; 94760; 94761

== ENCOUNTER → 2018-06-22 | Outpatient (CLI) | payer MEDICARE ==
[~2018-06-22] MED LIST changes: +AMLO10TA7 PO; +ASPI-983 PO; +AZIT250T12 PO; +CATHETER FLUSH 10 ML SYR IV PRN; +HOLD METFORMIN - RECEIVED CONTRAST 20 ML VIAL IV SCH; +IBUP-1780 PO; +IOHEXOL 350 MG/ML 100 ML (OMNIPAQUE 350) VIAL IV ONE; +IPRA3AMP31 IH; +LOSA100T57 PO; +METO-370 PO; +METO-387 PO; +NS 100 ML (IVPB) BAG IV ONE; +PRED10TA22 PO; +TERA10CA3 PO
[2018-06-22 16:01] LABS: CREATININE SERUM 1.28 MG/DL (0.60-1.30)
--- NOTE | 2018-06-22 16:25 | Diagnostic Imaging Report ---
INDICATION: Bilateral leg swelling. Bilateral lower extremity venous Doppler study was performed in the routine fashion with color flow Doppler and waveform analysis. FINDINGS: The common femoral veins, superficial femoral veins, popliteal veins and visualized portion of the tibial veins show normal compressibility and venous flow patterns. There is normal augmentation. IMPRESSION: No evidence of deep vein thrombosis in the major veins of both legs. Dictated by: Dictated on workstation # [id number]
--- NOTE | 2018-06-22 17:14 | Diagnostic Imaging Report ---
PROCEDURE: CT angiography of the chest with contrast. TECHNIQUE: Multiple contiguous axial images were obtained through the chest after uneventful bolus administration of intravenous contrast. 2D reconstructed CTA MIP acquisitions were also performed. Auto Exposure Controls were utilized during the CT exam to meet ALARA standards for radiation dose reduction. INDICATION: Cough COMPARISON: None available. FINDINGS: Vasculature: No pulmonary emboli. No CT evidence of pulmonary hypertension or right ventricular strain. Thoracic aorta is normal in caliber. No aortic dissection or pseudoaneurysm. Heart and mediastinum: Visualized thyroid is normal. No supraclavicular, axillary, or intra-thoracic lymphadenopathy. The heart is normal in size without pericardial effusion. Pleura: Trace left pleural effusion. No pneumothorax. Lungs and airway: No endoluminal lesion in the trachea or central bronchi. Patchy airspace opacities in the right lower lobe. A small amount of dependent atelectasis is present in the left lung base. Upper abdomen: Allowing for the phase of contrast, no acute abnormality in the upper abdomen is seen. Diffuse hypoattenuation of the liver raises the possibility of hepatic steatosis. Cholecystectomy. Musculoskeletal: No concerning osseous lesion. IMPRESSION: 1. No pulmonary emboli or acute aortic syndrome. 2. Patchy airspace disease in the right lower lobe is likely due to an infectious process. 3. Trace left pleural effusion. Dictated by: Dictated on workstation # [id number]
[2018-06-22 17:26] LABS: ABG BASE EXCESS 0.9 MMOL/L (-2.5-2.5); ABG OXYGEN SATURATION 94 % (94-100); ABG PCO2 39 MMHG (35-45); ABG PH 7.42 (7.37-7.43); ABG PO2 65 MMHG (79-93); ABG TCO2 26.5 MMOL/L (21.0-31.0); ALLENS TEST POSITIVE; INSPIRED O2 3L; PATIENT TEMP 95.7; VENTILATOR NO
== END ==
LOC: RT 15:22
PROVIDERS: ATTEND Nurse Practitioner Family
DX: R06.00 Dyspnea, unspecified (principal); R06.89 Other abnormalities of breathing; R60.0 Localized edema; R05 Cough; J44.9 Chronic obstructive pulmonary disease, unspecified; R09.02 Hypoxemia; M79.606 Pain in leg, unspecified
CPT/HCPCS: 36415; 71275; 82565; 82805; 84520; 93970

== ENCOUNTER 2018-07-18 10:19 | Outpatient (CLI) | payer MEDICARE ==
[~2018-07-18] VITALS: Ht 182.9 cm; Wt 122.6 kg
[~2018-07-18 10:19] MED LIST changes: -CATHETER FLUSH 10 ML SYR IV PRN; +FLUT1BLS3 IH; -HOLD METFORMIN - RECEIVED CONTRAST 20 ML VIAL IV SCH; -IOHEXOL 350 MG/ML 100 ML (OMNIPAQUE 350) VIAL IV ONE; -NS 100 ML (IVPB) BAG IV ONE; +RT-ALBUINH IH
== END 2018-07-18 11:00 | disposition home or self-care (01) ==
LOC: PREOP 10:19
PROVIDERS: ATTEND Internal Medicine Critical Care Medicine
DX: Z01.818 Encounter for other preprocedural examination (principal)

== ENCOUNTER 2018-07-20 07:56 | Day surgery (SDC) | payer MEDICARE ==
[~2018-07-20] VITALS: Ht 182.9 cm; Wt 122.6 kg
[2018-07-20] MEDS ORDERED: LIDOCAINE PF 2% 5 ML (XYLOCAINE) VIAL INJ ONE (07:57)
[2018-07-20] MEDS ORDERED: LIDOCAINE JELLY 2% 6 ML SYRINGE TOP ONE (07:57)
[2018-07-20] MEDS ORDERED: LIDOCAINE PF 1% 2 ML VIAL (OR ONLY) IJ ONE (07:57)
[2018-07-20] MEDS ORDERED: NS IV 500 ML 500 ML ONE (08:04)
[2018-07-20] MEDS ORDERED: NS IV 500 ML 500 ML IV PRN (08:09)
[2018-07-20 08:10] VITALS: BP 126/63
--- OUTSIDE RECORDS SUMMARY | 2018-07-20 08:11 | XMS REPORT ---
Author Author Migration, Doctor Organization [facility] Address Unknown Phone Unavailable Care Team Providers Care Osd Clerk Name Role Phone Migration, Doctor Unavailable Unavailable PROBLEMS Type Condition ICD9-CM Code KAQ83-VX Code Onset Dates Condition Status SNOMED Code Problem Other chronic pain G89.29 Active 31345422 Problem Panlobular emphysema J43.1 Active 8096735 Problem Benign prostatic hyperplasia with lower urinary tract symptoms N40.1 Active 155131445 Problem Hypertension, benign I10 Active 33556507 Problem Arthritis M19.90 Active 1253831 ALLERGIES No Information ENCOUNTERS Encounter Location Date Diagnosis [place] [id number] [place] [address] Jul, [facility] [address] [address] Jun, [facility] [id number] [place] [address] Jun, Exertional dyspnea R06.09 and Panlobular emphysema J43.1 [facility] [id number] [place] [address] Jun, [facility] [id number] [place] [address] Apr, Encounter for preventative adult health care examination Z00.00 [facility] [id number] [place] [address] 11424- [address] 07 Feb, 2018 Low back pain M54.5 and Other chronic pain G89.29 [facility] [id number] [place] [address] 09393- [address] 11 Jan, [address] [facility] [id number] [place] [address] 836[address]- [address] Dec, Arthritis M19.90 ; Low back pain M54.5 ; Other chronic pain G89.29 ; Pain in right foot M79.671 and Pain of left foot M79.672 [facility] [id number] [place] [address] 40[address]- 69[address] Nov, Low back pain M54.5 [facility] [id number] [place] [address] 46[address]- [address] Nov, Elevated liver enzymes R74.8 [facility] [id number] [place] [address]- [address] Nov, Low back pain M54.5 ; Other chronic pain G89.29 and Hypertension, benign I10 [facility] [id number] [place] [address]- 6[address] Nov, Low back pain M54.5 [facility] [id number] [place] [address] 485[address]- [address] Nov, Low back pain M54.5 ; Other chronic pain G89.29 and Hypertension, benign I10 [facility] [id number] [place] [address] 42168- 7459 Apr, Arthritis M19.90 ; Hypertension, benign I10 ; Benign prostatic hyperplasia with lower urinary tract symptoms N40.1 and Straining to void R39.16 [facility] [id number] [address] Jul, [facility] [id number] [place] [address] Jul, [facility] [id number] [place] [address]- [address] Dec, [facility] [id number] [place] [address] August, [facility] [id number] [place] [address] Mar, [facility] [id number] [place] [address] Mar, [facility] [address] [facility] [id number] [address] Oct, [facility] [address] [facility] [id number] [address] Sep, [facility] [address] [facility] [id number], [place] [address] Jul, [facility] [address] [facility] [id number], [place] [address] Jul, IMMUNIZATIONS No Known Immunizations SOCIAL HISTORY Never Assessed REASON FOR VISIT EMR-[facility] PLAN OF CARE VITAL SIGNS MEDICATIONS Medication Instructions Dosage Frequency Start Date End Date Duration Status Hydrochlorothiazide 25 mg 1 tablet by Oral route 1 time per day August Active Viagra 100 mg 1 tablet by Oral route 1 time per day Mar, Active RESULTS No Results PROCEDURES No Known procedures INSTRUCTIONS MEDICATIONS ADMINISTERED No Known Medications MEDICAL (GENERAL) HISTORY Type Description Date Medical History Accelerated hypertension Medical History Benign prostatic hyperplasia, unspecified whether lower urinary tract symptoms present Medical History COPD Surgical History carotid endarterectomy Surgical History cholecystectomy Surgical History appendectomy Hospitalization History [facility] ER 05/2018
--- OUTSIDE RECORDS SUMMARY | 2018-07-20 08:12 | XMS REPORT | Continuity of Care Document ---
Author Organization Unknown Address Unknown Allergies There is no data. Medications There is no data. Problems Date Dx Coded Attending Type Code Diagnosis Diagnosed By 07/29/2011 FREDERICK LONGORIA MD 607.84 IMPOTENCE OF ORGANIC ORIGIN 03/13/2012 FREDERICK LONGORIA MD 401.9 UNSPECIFIED ESSENTIAL HYPERTENSION Procedures Code [place] [id number] ROUTINE VENIPUNCTURE 03/13/2012 48969 CMP 03/13/[id number] GFR CALC (RESULT ONLY) 03/13/2012 Results Test Result Range [facility] - 11/10/17 08:10 GLUCOSE 129 mg/dL 65-99 UREA NITROGEN (BUN) 21 mg/dL 7-25 CREATININE 1.19 mg/dL 0.70-1.18 eGFR NON-AFR. KENYAN 61 mL/min/1.73m2 > OR=60 eGFR 71 mL/min/1.73m2 [...] Status Pt. Type Provider Facility Loc./Unit Complaint [id number] 07/17/2018 17:20:00 [facility] Outpatient DONTRELL SMART APRN [facility] [id number] 11/10/2017 08:00:00 Document Registration [id number] 03/13/2012 14:09:00 03/13/2012 23:59:59 [facility] Outpatient SWATI TOLENTINO, FREDERICK
[2018-07-20] MEDS ORDERED: MIDAZOLAM 2 MG/2 ML (VERSED) VIAL IVP ONE (08:15)
[2018-07-20] MEDS ORDERED: fentaNYL INJECTION 100 MCG/2 ML AMP IVP ONE (08:15)
[2018-07-20] MEDS ORDERED: fentaNYL INJECTION 100 MCG/2 ML AMP ONE ×2 (08:52)
[2018-07-20] MEDS ORDERED: MIDAZOLAM 2 MG/2 ML (VERSED) VIAL ONE ×3 (08:53)
--- NOTE | 2018-07-20 09:00 | Progress Note-Pre Operative ---
Pre-Operative Progress Note H&P Reviewed The H&P was reviewed, patient examined and no changes noted. Date Seen by Provider: Jul 20, 2018 Time Seen by Provider: 08:59 Date H&P Reviewed: Jul 20, 2018 Time H&P Reviewed: 08:59 Pre-Operative Diagnosis: Infiltrate MADELYN ISBELL DO Jul 20, 2018 09:00
--- NOTE | 2018-07-20 09:05 | Pre-Op Note & Conscious Sedat ---
Pre-Operative Progress Note H&P Reviewed The H&P was reviewed, patient examined and no changes noted. Date H&P Reviewed: Jul 20, 2018 Time H&P Reviewed: 09:05 Conscious Sedation Pre-Proced Time 08:59 ASA Score 3 For ASA 3 and 4: Consider anesthesia and medical clearance. Also, for patients with a history of failed moderate sedation consider anesthesia. Airway Lungs Heart ASA score ASA 1: a normal healthy patient ASA 2: a patient with a mild systemic disease (mid diabetes, controlled hypertension, obesity ASA 3: a patient with a severe systemic disease that limits activity (angina , COPD, prior Myocardial infarction) ASA 4: a patient with an incapacitating disease that is a constant threat to life (CHF, renal failure) ASA 5: a moribund patient not expected to survive 24 hrs. (ruptured aneurysm) ASA 6: a declared brain- patient whose organs are being harvested. For emergent operations, add the letter E after the classification Mallampati Classification Grade 3 Sedation Plan Analgesia, Amnesia, Plan communicated to team members, Discussed options with patient/fam, Discussed risks with patient/fam The patient is an appropriate candidate to undergo the planned procedure, sedation, and anesthesia. The patient immediately re-assessed prior to indication. MADELYN ISBELL DO Jul 20, 2018 09:05
--- NOTE | 2018-07-20 09:55 | Pulmonary Procedures ---
Pulmonary Procedures Date of Procedure Date of Service: Jul 20, 2018 Bronch Bronchoscopy with Fluoroscopy RLL bronchoalveolar lavage (BAL), bilateral bronchial washes and, RLL brushes x2 . Lora brush of right mainstem bronchi Preop DX ILD, Infiltration Postop DX: same - No endobronchial lesion. Pt did have mucous plugging. Complications: none After informed consent obtained and formal time out pt was sedated using Fentanyl and Versed. Bronchoscope was advanced through the nare and vocal cords. 1% lidocaine was used to anesthetize vocal cords, epiglottis, lora, and left/right main stem bronchus. An anatomical tour was undertaken down to the segmental bronchi bilaterally. No endobronchial lesions noted. Bronchoscopy with Fluoroscopy RLL bronchoalveolar lavage (BAL), bilateral bronchial washes and, RLL brushes x2 . Lora brush of right mainstem bronchi . Pt tolerated procedure well. No complications noted. Stat CXR is pending. MADELYN ISBELL DO Jul 20, 2018 09:55
[2018-07-20 10:05] VITALS: BP 129/79
--- NOTE | 2018-07-20 10:30 | Diagnostic Imaging Report ---
INDICATION: Post bronchoscopy followup. Portable chest 10:21 AM FINDINGS: Heart size and pulmonary vascularity are normal. Lungs are clear. There are no effusions or pneumothoraces. IMPRESSION: No acute abnormalities in the chest. Dictated by: Dictated on workstation # [id number]
[2018-07-20 10:58] VITALS: BP 119/79
[2018-07-20 11:10] VITALS: BP 119/79
--- NOTE | 2018-07-20 19:52 | Diagnostic Imaging Report ---
Clinical indication: Dr. Pena performed bronchoscopy. Exam: Limited intraprocedural chest x-ray. Comparison: Chest x-ray dated 07/20/2018. Findings and impression: Limited x-ray images shows bronchoscopy performed by Dr. Pena. Please see clinician's report for more detail. Fluoroscopy was provided for clinician and a total of 26.1 seconds and 691.04 Mrad was provided. Dictated by: Dictated on workstation # [id number]
== END 2018-07-20 11:10 | disposition home or self-care (01) ==
LOC: ENDO 07:56
PROVIDERS: ATTEND Internal Medicine Critical Care Medicine
DX: J98.09 Other diseases of bronchus, not elsewhere classified (principal); J44.9 Chronic obstructive pulmonary disease, unspecified; G47.30 Sleep apnea, unspecified; Z72.0 Tobacco use; Z87.01 Personal history of pneumonia (recurrent); Z79.82 Long term (current) use of aspirin; Z79.899 Other long term (current) drug therapy
CPT/HCPCS: 71045; 87015; 87070; 87101; 87116; 87205; 87206; 88112; 88305; 88312

== ENCOUNTER 2018-07-29 20:49 | Outpatient (CLI) | payer MEDICARE | END 2018-07-30 06:39 | disposition home or self-care (01) | LOC: SLEEP 20:49 | PROVIDERS: ATTEND Nurse Practitioner Family | DX: G47.33 Obstructive sleep apnea (adult) (pediatric) (principal); R09.02 Hypoxemia; J30.9 Allergic rhinitis, unspecified; R06.00 Dyspnea, unspecified; R06.89 Other abnormalities of breathing; R05 Cough; J44.9 Chronic obstructive pulmonary disease, unspecified; G47.10 Hypersomnia, unspecified; G47.50 Parasomnia, unspecified; Z79.82 Long term (current) use of aspirin; Z79.899 Other long term (current) drug therapy | CPT/HCPCS: 95811 ==

== ENCOUNTER → 2018-08-01 | Outpatient (CLI) | payer MEDICARE ==
[~2018-08-01] VITALS: Ht 182.9 cm; Wt 122.0 kg
[~2018-08-01] MED LIST changes: +CATHETER FLUSH 10 ML SYR IV PRN; +REGADENOSON 0.4 MG/5 ML SYR (LEXISCAN) IV ONE
[2018-08-01 12:58] VITALS: BP 205/55
== END ==
LOC: CARD 11:26
PROVIDERS: ATTEND Internal Medicine Cardiovascular Disease
DX: J44.9 Chronic obstructive pulmonary disease, unspecified (principal); I10 Essential (primary) hypertension; R09.02 Hypoxemia; E66.8 Other obesity
CPT/HCPCS: 78452; 93017

== ENCOUNTER → 2018-08-21 | Outpatient (CLI) | payer MEDICARE ==
[~2018-08-21] MED LIST changes: -CATHETER FLUSH 10 ML SYR IV PRN; -REGADENOSON 0.4 MG/5 ML SYR (LEXISCAN) IV ONE; +RT-ALBUTEROL SULF 2.5 MG/3 ML PRE-MIX VIAL INH ONE; +RT-ALBUTEROL SULF 2.5 MG/3 ML PRE-MIX VIAL ONE
== END ==
LOC: RT 08:03
PROVIDERS: ATTEND Nurse Practitioner Family
DX: J44.0 Chronic obstructive pulmonary disease with (acute) lower respiratory infection (principal); J18.9 Pneumonia, unspecified organism; G47.10 Hypersomnia, unspecified; R09.02 Hypoxemia; R91.8 Other nonspecific abnormal finding of lung field
CPT/HCPCS: 94060

== ENCOUNTER → 2020-01-28 | Outpatient (CLI) | payer MEDICARE ==
[~2020-01-28] MED LIST changes: +AMLO-251 PO; -AMLO10TA7 PO; +ASPI-1238 PO; -ASPI-983 PO; -METO-370 PO; -METO-387 PO; +METO50TA7 PO; +MTP25TSR PO; -RT-ALBUTEROL SULF 2.5 MG/3 ML PRE-MIX VIAL INH ONE; -RT-ALBUTEROL SULF 2.5 MG/3 ML PRE-MIX VIAL ONE
== END ==
LOC: CARD 07:58
PROVIDERS: ATTEND Nurse Practitioner Family
DX: R55 Syncope and collapse (principal)
CPT/HCPCS: 93225; 93226

== ENCOUNTER → 2020-02-08 | Outpatient (CLI) | payer MEDICARE ==
[~2020-02-08] VITALS: Ht 183 cm; Wt 123.0 kg
[~2020-02-08] MED LIST changes: +CATHETER FLUSH 10 ML SYR IV PRN; +REGADENOSON 0.4 MG/5 ML SYR (LEXISCAN) IV ONE
[2020-02-08 09:03] VITALS: BP 151/83
--- NOTE | 2020-02-11 16:20 | STRESS TEST ---
DATE OF SERVICE: 02/08/2020 RESTING AND POST REGADENOSON TECHNETIUM-99M TETROFOSMIN SPECT CT IMAGING ORDERING PHYSICIAN: Caty Navarro APRN PRIMARY PHYSICIAN: [facility]. CLINICAL DIAGNOSIS: Chest discomfort. Baseline images were carried out after injection of 10.89 mCi of technetium-99m Tetrofosmin. This was followed by 0.4 mg regadenoson and 30 mCi of technetium-99m Tetrofosmin for stress imaging. The electrocardiogram showed sinus rhythm with frequent isolated premature ventricular contractions. The electrocardiogram did not change significantly with regadenoson infusion. The patient tolerated the procedure well. Review of images at rest and following stress indicate a minimal apical perfusion defect that appears transient. Gating could not be carried out due to frequent premature ventricular contractions. CONCLUSIONS: 1. This study is suggestive of minimal apical ischemia. 2. Gating could not be carried out due to frequent premature ventricular contractions. Job ID: [id number] DocumentID: [id number] Dictated Date: 02/11/2020 13:48:28 Automatic Riveting Machine Operator Date: 02/11/2020 16:20:07 Dictated By: FELI GUERRERO MD, MA, FACP, FACC,
== END ==
LOC: CARD 08:00
PROVIDERS: ATTEND Nurse Practitioner Family
DX: R07.9 Chest pain, unspecified (principal)
CPT/HCPCS: 78452; A9502

== ENCOUNTER 2020-02-19 07:05 | Day surgery (SDC) | payer MEDICARE ==
[~2020-02-19] VITALS: Ht 183 cm; Wt 122.0 kg
[2020-02-19] VITALS (41 sets, daily range): BP systolic 104–208; BP diastolic 46–105
[~2020-02-19 07:05] MED LIST changes: -CATHETER FLUSH 10 ML SYR IV PRN; -REGADENOSON 0.4 MG/5 ML SYR (LEXISCAN) IV ONE
[2020-02-19] MEDS ORDERED: HEParin (CATH LAB) 2,000 ML IV ONE (07:09)
[2020-02-19] MEDS ORDERED: NS IV 1000 ML 1,000 ML ONE (07:09)
[2020-02-19] MEDS ORDERED: LIDOCAINE 1% INJ 20 ML 20 ML VIAL ONE (07:09)
[2020-02-19] MEDS ORDERED: NS IV 1000 ML 1,000 ML IV SCH ×2 (07:15→09:16)
[2020-02-19 07:29] LABS: MEAN PLATELET VOLUME 10.2 fL (9.0-12.2); WHITE BLOOD COUNT 9.2 10^3/uL (4.3-11.0)
[2020-02-19] MEDS ORDERED: LISI40TA PO (07:31)
[2020-02-19] MEDS ORDERED: CLOP75TA69 PO (07:31)
[2020-02-19 07:43] LABS: PROTHROMBIN TIME PATIENT 13.4 SEC (12.2-14.7)
[2020-02-19 07:53] LABS: BILIRUBIN,TOTAL 0.4 MG/DL (0.1-1.0); CALCIUM 9.9 MG/DL (8.5-10.1); CREATININE SERUM 1.29 MG/DL (0.60-1.30); POTASSIUM 4.2 MMOL/L (3.6-5.0); TOTAL PROTEIN 7.8 GM/DL (6.4-8.2)
[2020-02-19] MEDS ORDERED: fentaNYL INJECTION 100 MCG/2 ML AMP ONE ×2 (08:12→13:12)
[2020-02-19] MEDS ORDERED: MIDAZOLAM 5 MG/5 ML (VERSED) VIAL ONE (08:12)
[2020-02-19] MEDS ORDERED: NITRO DRIP 25000 MCG/D5W 0 ML IV ONE (08:47)
[2020-02-19] MEDS ORDERED: HEParin 1000 UNIT/ML (10ML VIAL) FOR BOLUS ONE (08:47)
[2020-02-19] MEDS ORDERED: EPTIFIBATIDE BOLUS 20 ML IV ONE (08:58)
[2020-02-19] MEDS ORDERED: EPTIFIBATIDE BOLUS 10 ML IV ONE (09:00)
[2020-02-19] MEDS ORDERED: CLOPIDOGREL 300 MG (PLAVIX) TABLET PO ONE (09:13)
[2020-02-19] MEDS ORDERED: ASPIRIN 81 MG CHEW (CHILDREN'S ASA) ONE (09:13)
--- NOTE | 2020-02-19 09:16 | Cardiac Procedure Note-CS/ASA ---
Pre-Procedure Note Pre-Op Procedure Note H&P Reviewed The H&P was reviewed, patient examined and no changes noted. Date H&P Reviewed: Feb 19, 2020 Time H&P Reviewed: 08:20 Conscious Sedation Pre-Proced Time 08:20 ASA Score 3 For ASA 3 and 4: Consider anesthesia and medical clearance. Also, for patients with a history of failed moderate sedation consider anesthesia. Airway Lungs Heart ASA score ASA 1: a normal healthy patient ASA 2: a patient with a mild systemic disease (mid diabetes, controlled hypertension, obesity ASA 3: a patient with a severe systemic disease that limits activity (angina, COPD, prior Myocardial infarction) ASA 4: a patient with an incapacitating disease that is a constant threat to life (CHF, renal failure) ASA 5: a moribund patient not expected to survive 24 hrs. (ruptured aneurysm) ASA 6: a declared brain- patient whose organs are being harvested. For emergent operations, add the letter E after the classification Mallampati Classification Grade 2 Sedation Plan Analgesia, Amnesia, Plan communicated to team members, Discussed options with patient/fam, Discussed risks with patient/fam The patient is an appropriate candidate to undergo the planned procedure, sedation, and anesthesia. The patient immediately re-assessed prior to indication. FELI GUERRERO MD FACP FAC CCDS Feb 19, 2020 09:16
[2020-02-19] MEDS ORDERED: ACETAMINOPHEN 325 MG TABLET PO PRN (09:30)
[2020-02-19] MEDS ORDERED: PATIENT MAY USE OWN MEDS, ALL PO SCH (09:30)
[2020-02-19] MEDS ORDERED: IBUPROFEN 800 MG (MOTRIN) TAB PO PRN (09:30)
[2020-02-19] MEDS ORDERED: RT-ALBUTEROL SULF 2.5 MG/3 ML PRE-MIX VIAL IH PRN (09:30)
--- NOTE | 2020-02-19 10:13 | CARDIAC CATHETERIZATION ---
DATE OF SERVICE: 02/19/2020 CARDIAC CATHETERIZATION AND CORONARY INTERVENTION REPORT INDICATION FOR PROCEDURE: The patient is a 74-year-old man with chest discomfort in the setting of coronary artery disease risk factors, who recently underwent a myocardial perfusion imaging study, which indicated some anteroapical ischemia. Cardiac catheterization was carried out after having obtained an informed consent for cardiac catheterization and possible ad hoc coronary intervention. DESCRIPTION OF PROCEDURE: He was brought to the cardiac catheterization laboratory in a fasting state. Right groin was prepared and draped in the usual sterile fashion. Lidocaine 1% used for local anesthesia. Modified Seldinger technique used to advance a 5-Bangladeshi sheath in the right femoral artery. A 5-Bangladeshi JL4 catheter was used for left coronary angiography, 5-Bangladeshi JR4 catheter for right coronary angiography, 5-Bangladeshi pigtail catheter was used for left heart catheterization and left ventricular angiography. PERCUTANEOUS INTERVENTION TO THE FIRST DIAGONAL BRANCH OF THE LEFT ANTERIOR DESCENDING: A sub-branch of the first diagonal branch of the left anterior descending artery was exhibiting 80% ostial stenosis. We exchanged the sheath over a wire for a 6-Bangladeshi sheath. We used a 6-Bangladeshi JL4 guide catheter to engage the left coronary artery. We gave 7000 units of intravenous heparin and a double bolus of Integrilin during the procedure. We crossed the lesion in the sub-branch of the first diagonal with a ChoICE floppy wire. We carried out balloon angioplasty with a Mini Trek 2.0 x 20 mm balloon. This resulted in improvement of stenosis from 80% to less than 30%. Flow throughout the vessel is normal. He tolerated the procedure well. Angioplasty equipment was removed. The sheath was sutured in place and the patient was transferred to the floor for manual sheath removal. HEMODYNAMICS: Left ventricular end-diastolic pressure following coronary angiography was 15 mmHg. There is no significant pressure gradient on pullback across the aortic valve. Ascending aortic pressure was 136/57 with a mean of 84 mmHg. CORONARY ANGIOGRAPHY: Left main coronary artery is free of significant disease. Left anterior descending artery has mild plaques. A sub-branch of the first diagonal branch had 80% ostial stenosis to which successful balloon angioplasty was carried out that reduced the stenosis to less than 30%. Left circumflex artery does not exhibit significant stenosis. The right coronary artery is dominant and does not exhibit significant disease. LEFT VENTRICULAR ANGIOGRAPHY: Left ventricular angiography was carried out in the right anterior oblique projection. Global left ventricular systolic function normal. No regional wall motion abnormality was seen. Left ventricular ejection fraction approximately. CONCLUSIONS: 1. Coronary artery disease primarily consisting of 80% stenosis and a sub-branch of a large first diagonal branch. Successful balloon angioplasty was carried out to this lesion that reduced the stenosis from 80% to less than 30%. 2. Normal global left ventricular systolic function with an ejection fraction of approximately 60%. 3. Mild elevation of left ventricular end-diastolic pressure. DISCUSSION AND RECOMMENDATIONS: He is being hospitalized for observation after the coronary interventional procedure. Antiplatelet therapy is being continued. Risk factor modification has been reviewed. Job ID: [id number] DocumentID: [id number] Dictated Date: 02/19/2020 09:30:30 Fisher Line Date: 02/19/2020 10:12:11 Dictated By: FELI GUERRERO MD, MA, FACP, FACC,
[2020-02-19] MEDS ORDERED: IBUPROFEN 800 MG (MOTRIN) TAB PO ONE (12:03)
[2020-02-19] MEDS ORDERED: ATROPINE INJ 0.4 MG/ML SDV ONE ×2 (13:12→14:25)
[2020-02-19] MEDS ORDERED: fentaNYL INJECTION 100 MCG/2 ML AMP IVP NR (13:15)
[2020-02-19] MEDS ORDERED: TERAZOSIN 5 MG (HYTRIN) CAPSULE PO SCH (21:00)
[2020-02-19] MEDS ORDERED: ASPIRIN E.C. 81 MG (ECOTRIN) TAB PO SCH (21:00)
[2020-02-19] MEDS ORDERED: amLODIPine 10 MG (NORVASC) TAB PO SCH (21:00)
[2020-02-20] VITALS: BP 148/68
[2020-02-20 04:00] VITALS: BP 130/71
[2020-02-20 04:06] LABS: HEMOGLOBIN 13.3 g/dL (13.3-17.7); MEAN PLATELET VOLUME 10.9 fL (9.0-12.2)
[2020-02-20 04:16] LABS: POTASSIUM 4.3 MMOL/L (3.6-5.0)
[2020-02-20 04:17] LABS: CALCIUM 9.1 MG/DL (8.5-10.1)
[2020-02-20 04:21] LABS: CREATININE SERUM 1.24 MG/DL (0.60-1.30)
[2020-02-20 08:00] VITALS: BP 160/97
--- NOTE | 2020-02-20 08:38 | Progress Note - Cardiology ---
Cardiology SOAP Progress Note Subjective: Lying in bed. No c/o CP or SOB this morning. No c/o groin discomfort. Wants to go home. Objective: I&O/Vital Signs 02/19/20 02/19/20 02/20/20 02/20/20 22:00 23:15 00:00 00:00 Pulse 67 64 58 Resp 14 20 16 B/P (MAP) 150/60 (90) 145/61 (89) 148/68 (94) Pulse Ox 94 96 97 88 O2 Delivery Nasal Cannula Nasal Cannula Nasal Cannula Nasal Cannula O2 Flow Rate 2.00 2.00 2.00 2.00 02/20/20 02/20/20 02/20/20 01:30 04:00 04:00 Pulse 70 75 B/P (MAP) 130/71 (90) Pulse Ox 97 94 O2 Delivery Nasal Cannula Nasal Cannula O2 Flow Rate 2.00 2.00 02/20/20 00:00 Intake Total 400 ml Balance 400 ml Weight (Pounds): 269 Weight (Ounces): 0.0 Weight (Calculated Kilograms): 122.119283 Side: right Groin site without hematoma: Yes Condition: DP/PT pulses palpable, extremity w/d/p Bruising: moderated bruising Constitutional: AAO x 3, well-developed, well-nourished Respiratory: No accessory muscle use; chest expansion is symmetric, chest is bilaterally symmetric, other (prolonged expiratory phase) Cardiovascular: regular rate-rhythm; No JVD; S1 and S2 Gastrointestional: No tender; soft, round, audible bowel sounds Extremities: no lower extremity edema bilateral Neurologic/Psychiatric: grossly intact (moves all extremities) Skin: No rash on exposed areas Results/Procedures: Labs Laboratory Tests 02/19/20 10:50: Activated Partial Thromboplast Time 102H 02/19/20 12:33: Activated Partial Thromboplast Time 39H 02/20/20 03:44: White Blood Count 7.0, Red Blood Count 3.91L, Hemoglobin 13.3, Hematocrit 41, Mean Corpuscular Volume 104H, Mean Corpuscular Hemoglobin 34, Mean Corpuscular Hemoglobin Concent 33, Red Cell Distribution Width 12.9, Platelet Count 205, Mean Platelet Volume 10.9, Sodium Level 140, Potassium Level 4.3, Chloride Level 106, Carbon Dioxide Level 24, Anion Gap 10, Blood Urea Nitrogen 15, Creatinine 1.24, Estimat Glomerular Filtration Rate 57, BUN/Creatinine Ratio 12, Glucose Level 171H, Calcium Level 9.1 Microbiology 02/19/20 MRSA Screen - Final, Complete MRSA not isolated Procedures S/P cardiac cath with successful intervention on Feb 19, 2020. Please refer to cardiac cath report for details. A/P: Assessment: Coronary artery disease primarily consisting of 80% stenosis and a sub-branch of a large first diagonal branch. Successful balloon angioplasty was carried out to this lesion that reduced the stenosis from 80% to less than 30%. Normal global left ventricular systolic function with an ejection fraction of approximately 60%. Mild elevation of left ventricular end-diastolic pressure. Per cardiac cath of Feb 19, 2020 Syncope of undetermined etiology in September 2019 COPD Echo on 05/31/18: LVEF 60-65%, no valvular disease MPI of 02/08/20 showed minimal apical ischemia, normal LVEF, frequent PVCs (subsequent cardiac cath as noted above) H/O R CEA approx [address] Aguero. Carotid u/s of 01/23/20: approx 60% DAVEY stenosis, considerable plaque of both the common and the internal car otid on L and estimated LICA stenosis of approx 60% in relation to the common carotid HTN HLD - intolerant to statin tx d/t liver enzyme elevation H/o hyperglycemia during hosp of June 2018 (on steroids at that time) Tobaccoism - cessation advised BPH Elevated BMI 36 Dizziness, chronic, mostly postural Bilat leg swelling, likely related to venous insuff Sleep apnea - CPAP tx - followed by Dr. Pena ETOH usage - reports 5-6 beers per night Liver enzyme elevation - managed by PCP Plan: S/P successful cardiac cath with coronary intervention OK to discharge home Continue current medication regimen including dual antiplatelet tx Advise ETOH cessation Advise smoking cessation F/U in 2 weeks ZANE LOMBARDO Feb 20, 2020 08:38
[2020-02-20] MEDS ORDERED: ASPI-999 PO (08:40)
--- NOTE | 2020-02-20 08:41 | Discharge Inst-Cardiology ---
Discharge Inst-Cardiac Discharge Medications New Medications: Aspirin (Aspirin) 81 Mg Tab.chew 81 MG PO DAILY, #120 TAB 5 Refills Continued Medications: Albuterol Sulfate (Proair Hfa) 1 Puff Puff 2 PUFF IH Q4H PRN for SHORTNESS OF BREATH, PUFF 1 PUFF = 90 MCG Amlodipine Besylate (Amlodipine Besylate) 10 Mg Tablet 10 MG PO HS, TAB Clopidogrel Bisulfate (Plavix) 75 Mg Tablet 75 MG PO DAILY, TAB Lisinopril (Lisinopril) 40 Mg Tablet 40 MG PO DAILY, TAB Terazosin HCl (Terazosin HCl) 10 Mg Capsule 10 MG PO HS, CAP Discontinued Medications: Aspirin (Aspirin EC) 81 Mg Tablet.dr 81 MG PO HS, TAB Ibuprofen (Ibuprofen) 800 Mg Tablet 800 MG PO DAILY, TAB New, Converted or Re-Newed RX: Transmitted to Pharmacy Patient Instructions Patient Instructions: Please schedule follow up appointment to see Dr. Waller in 2 weeks ZANE LOMBARDO Feb 20, 2020 08:41
[2020-02-20] MEDS ORDERED: lisINopril 40 MG (PRINIVIL) TABLET PO SCH (09:00)
[2020-02-20] MEDS ORDERED: CLOPIDOGREL 75 MG (PLAVIX) TABLET PO SCH ×2 (09:00)
[2020-02-20 12:30] VITALS: BP 160/97
--- NOTE | 2020-02-21 14:05 | Progress Note - Cardiology ---
Cardiology SOAP Progress Note Subjective: No cp or palp or syncope or shortness of breath No groin discomfort or leg discoloration/discomfort No focal weakness No n/v/d Feel well Objective: Weight (Pounds): 269 Weight (Ounces): 0.0 Weight (Calculated Kilograms): 122.399208 Side: right Groin site without hematoma: Yes Condition: DP/PT pulses palpable, extremity w/d/p Bruising: moderated bruising Constitutional: AAO x 3, well-developed, well-nourished Respiratory: No accessory muscle use; chest expansion is symmetric, chest is bilaterally symmetric, other (prolonged expiratory phase) Cardiovascular: regular rate-rhythm; No JVD; S1 and S2 Gastrointestional: No tender; soft, round, audible bowel sounds Extremities: no lower extremity edema bilateral Neurologic/Psychiatric: grossly intact (moves all extremities) Skin: No rash on exposed areas Results/Procedures: Labs Microbiology 02/19/20 MRSA Screen - Final, Complete MRSA not isolated A/P: Assessment: Coronary artery disease. Card cath of 02/19/20 showed CAD primarily consisting of 80% stenosis and a sub-branch of a large first diagonal branch. Successful balloon angioplasty was carried out to this lesion that reduced the stenosis from 80% to less than 30%. Normal global left ventricular systolic function with an ejection fraction of approximately 60%. Mild elevation of left ventricular end-diastolic pressure Syncope of undetermined etiology in September 2019 COPD Echo on 05/31/18: LVEF 60-65%, no valvular disease MPI of 02/08/20 showed minimal apical ischemia, normal LVEF, frequent PVCs (subsequent cardiac cath as noted above) H/O R CEA approx [address] Aguero. Carotid u/s of 01/23/20: approx 60% DAVEY stenosis, considerable plaque of both the common and the internal carotid on L and estimated LICA stenosis of approx 60% in relation to the common carotid HTN HLD - intolerant to statin tx d/t liver enzyme elevation H/o hyperglycemia during hosp of June 2018 (on steroids at that time) Tobaccoism - cessation advised BPH Elevated BMI 36 Dizziness, chronic, mostly postural Bilat leg swelling, likely related to venous insuff Sleep apnea - CPAP tx - followed by Dr. Pena ETOH usage - reports 5-6 beers per night Liver enzyme elevation - managed by PCP Plan: I had a long and detailed discussion with him regarding card cath findings and the intervention undertaken We discussed in detail the rationale of current meds and potential side effects and the importance of compliance. If unable to tolerate any meds then he is to contact us and not unilaterally stop taking meds Continue current medication regimen including dual antiplatelet tx Advise ETOH cessation Advise smoking cessation F/U in 2 weeks NOTE: This is late entry for my visit at approximately 9:30 am on 02/20/20 FELI GUERRERO MD FACP FAC CCDS Feb 21, 2020 14:05
== END 2020-02-20 11:00 | disposition home or self-care (01) ==
LOC: CATH 07:05 → ICU 09:28 → CSD 02-20 00:23 → CATH 02-20 11:00
PROVIDERS: ATTEND Internal Medicine Cardiovascular Disease
DX: I25.10 Atherosclerotic heart disease of native coronary artery without angina pectoris (principal); I10 Essential (primary) hypertension; J44.9 Chronic obstructive pulmonary disease, unspecified; G47.10 Hypersomnia, unspecified; G47.33 Obstructive sleep apnea (adult) (pediatric); G47.50 Parasomnia, unspecified; E78.5 Hyperlipidemia, unspecified; I65.23 Occlusion and stenosis of bilateral carotid arteries; E66.9 Obesity, unspecified; Z68.36 Body mass index [BMI] 36.0-36.9, adult; Z79.82 Long term (current) use of aspirin; Z79.51 Long term (current) use of inhaled steroids; Z79.899 Other long term (current) drug therapy; Z87.891 Personal history of nicotine dependence; Z90.49 Acquired absence of other specified parts of digestive tract
CPT/HCPCS: 80048; 80053; 80061; 85027 ×2; 85610; 85730; 87081; 92920; 93458; C1725; C1769; C1887; C1894 ×2; 36415

== ENCOUNTER 2020-04-16 15:09 | Inpatient (IN) | payer MEDICARE ==
[~2020-04-16] VITALS: Ht 182.8 cm; Wt 106.4 kg
[~2020-04-16 15:09] MED LIST changes: +ASPI-999 PO; +CLOP75TA69 PO; +LISI40TA PO
[2020-04-16] MEDS ORDERED: LACTATED RINGERS 1,000 ML IV ONE ×2 (15:45)
[2020-04-16] MEDS ORDERED: ACETAMINOPHEN 500 MG TAB (TYLENOL) PO ONE (15:45)
[2020-04-16] MEDS ORDERED: ONDANSETRON 4 MG/2 ML (SDV) Z0FRAN IVP ONE (15:45)
[2020-04-16 15:47] LABS: ABG BASE EXCESS -3.5 MMOL/L (-2.5-2.5); ABG OXYGEN SATURATION 94 % (94-100); ABG PCO2 43 MMHG (35-45); ABG PO2 78 MMHG (79-93); ABG TCO2 22.7 MMOL/L (21.0-31.0)
[2020-04-16 15:52] LABS: ALLENS TEST YES-POS; INSPIRED O2 4L
[2020-04-16 15:52] LABS: BASOPHILS % (AUTO) 0 % (0-10); EOSINOPHILS % (AUTO) 0 % (0-10); HEMATOCRIT 43 % (40-54); HEMOGLOBIN 14.2 g/dL (13.3-17.7); LYMPHOCYTES # (AUTO) 0.7 10^3/uL (1.0-4.0); LYMPHOCYTES % (AUTO) 14 % (12-44); MEAN CORPUSCULAR HEMOGLOBIN 33 pg (25-34); MEAN CORPUSCULAR HGB CONC 33 g/dL (32-36); MEAN CORPUSCULAR VOLUME 100 fL (80-99); MEAN PLATELET VOLUME 10.2 fL (9.0-12.2); MONOCYTES # (AUTO) 0.4 10^3/uL (0.0-1.0); MONOCYTES % (AUTO) 7 % (0-12); NEUTROPHILS # (AUTO) 4.2 10^3/uL (1.8-7.8); NEUTROPHILS % (AUTO) 78 % (42-75); PLATELET COUNT 232 10^3/uL (130-400); WHITE BLOOD COUNT 5.3 10^3/uL (4.3-11.0)
[2020-04-16 15:53] LABS: PATIENT TEMP 100.2; VENTILATOR NO
--- NOTE | 2020-04-16 15:53 | ED Respiratory ---
General Chief Complaint: Respiratory Problems Stated Complaint: COVID +, SOB Nursing Triage Note: Pt to ED in wheelchair. Pt reports testing positive for COVID today. Pt reports symptoms began last and pt has needed 3L O2 since Tuesday. Pt c/o nause and fever. Source: patient Exam Limitations: no limitations History of Present Illness Date Seen by Provider: Apr 16, 2020 Time Seen by Provider: 15:32 Initial Comments Patient presents ER by private conveyance from urgent care walk-in with chief complaint that on his baseline 3 L he was 87%. He is supposed to be on 3 L but he says he almost never wears it. He has history of COPD, [id number] diabetes. Symptoms started about a week ago and he was diagnosed today with COVID-19. He was at work today and had to leave. He has had some borderline fevers, diarrhea and nausea. No chest pain or abdominal pain but he says the bed makes his back ache. Allergies and Home Medications Allergies Coded Allergies: No Known Drug Allergies (Verified , 07/20/18) Home Medications Albuterol Sulfate 1 Puff Puff, 2 PUFF IH Q4H PRN for SHORTNESS OF BREATH, (Reported) 1 PUFF = 90 MCG Amlodipine Besylate 10 Mg Tablet, 10 MG PO HS, (Reported) Aspirin 81 Mg Tab.chew, 81 MG PO DAILY Prescribed by: ZANE LOMBARDO on 02/20/20 0840 Clopidogrel Bisulfate 75 Mg Tablet, 75 MG PO DAILY, (Reported) Lisinopril 40 Mg Tablet, 40 MG PO DAILY, (Reported) Terazosin HCl 10 Mg Capsule, 10 MG PO HS, (Reported) Patient Home Medication List Home Medication List Reviewed: Yes Review of Systems Review of Systems Constitutional: chills, fever, malaise EENTM: No ear discharge, No ear pain Respiratory: cough, short of breath; No wheezing Cardiovascular: No chest pain, No edema; Hx of Intervention; No palpitations Gastrointestinal: No abdominal pain, No constipation, No diarrhea Genitourinary: No discharge, No dysuria Musculoskeletal: No back pain, No joint pain Skin: No pruritus, No rash All Other Systems Reviewed Negative Unless Noted: Yes Past Qhajufu-Blbbrr-Dipvif Hx Patient Social History Alcohol Use: Regular Use Number of Drinks Today: AA Alcohol Beverage of Choice: Beer, Whiskey Smoking Status: Former Smoker Former Smoker, Quit: Jun 01, 2018 2nd Hand Smoke Exposure: Yes Recent Infectious Disease Expo: Yes (COVID +) Recent Hopitalizations: No Seasonal Allergies Seasonal Allergies: No Past Medical History Surgeries: Yes (CAROTID ENDARTERECTOMY) Appendectomy, Gallbladder, Vascular Surgery Respiratory: Yes (O2 3L NC AT ALL TIMES DOESN'T WEAR IT REGULARLY) Pneumonia, COPD Cardiac: Yes Hypertension Neurological: No Reproductive Disorders: No Sexually Transmitted Disease: No HIV/AIDS: No Genitourinary: No Gastrointestinal: Yes Gastroesophageal Reflux Musculoskeletal: Yes Arthritis, Chronic Back Pain Endocrine: No HEENT: Yes (DENTURES) Loss of Vision: Denies Hearing Impairment: Denies Cancer: No Psychosocial: No Integumentary: No Blood Disorders: No Adverse Reaction/Blood Tranf: No (N/A) Family Medical History Hypertension Physical Exam Vital Signs - First Documented 04/16/20 15:29 Temp 37.8 Pulse 83 Resp 24 B/P (MAP) 169/73 (105) Pulse Ox 88 O2 Delivery Room Air Capillary Refill : Less Than 3 Seconds Height: 6'0.00" Weight: 269lbs. 0.0oz. 122.756995tf; 33.00 BMI Method:Stated General Appearance: WD/WN, mild distress Eyes: Bilateral Eye Normal Inspection, Bilateral Eye PERRL, Bilateral Eye EOMI HEENT: PERRL/EOMI, normal ENT inspection; No pharynx normal (Oropharynx is dry) Neck: full range of motion, normal inspection Respiratory: lungs clear, respiratory distress (Mild to moderate with oxygen sats 86% on room air on arrival.), decreased breath sounds, accessory muscle use Cardiovascular: normal peripheral pulses, regular rate, rhythm Gastrointestinal: non tender, soft Neurologic/Psychiatric: alert, normal mood/affect, oriented x 3 Skin: normal color, warm/dry Focused Exam Sepsis Stage: Sepsis Possible Source: Pulmonary Time of Focused Exam: 17:27 Respiratory: Lungs Clear, No Accessory Muscle Use, Decreased Breath Sounds, Respiratory Distress (Mild with 3 L nasal cannula keeping sats 93 to 94%) Cardiovascular: Regular Rate, Rhythm, No Edema, Normal Peripheral Pulses Capillary Refill: Less Than 3 Seconds Peripheral Pulses: 2+ Radial Pulses (R), 2+ Radial Pulses (L) Skin: normal color, warm/dry Within 3hrs of presentation: Admin fluids, Admin ABX, Blood cultures prior to ABX's, Focus exam, Lactate level Progress/Results/Core Measures Suspected Sepsis Recent Fever Within 48 Hours: Yes Infection Criteria Present: Suspected New Infection New/Unexplained Altered Menta: No Sepsis Screen: Possible Severe Sepsis Risk SIRS Temperature: Pulse: 83 Respiratory Rate: 24 Laboratory Tests 04/16/20 15:35: White Blood Count 5.3 Blood Pressure 169 /73 Mean: 105 Laboratory Tests 04/16/20 15:35: Creatinine 2.00H, INR Comment 1.0, Platelet Count 232, Total Bilirubin 0.5 Results/Orders Lab Results Laboratory Tests Test 04/16/20 15:35 04/16/20 15:37 Range/Units White Blood Count 5.3 4.3-11.0 10^3/uL Red Blood Count 4.29 L 4.30-5.52 10^6/uL Hemoglobin 14.2 13.3-17.7 g/dL Hematocrit 43 40-54 % Mean Corpuscular Volume 100 H 80-99 fL Mean Corpuscular Hemoglobin 33 25-34 pg Mean Corpuscular Hemoglobin Concent 33 32-36 g/dL Red Cell Distribution Width 12.8 10.0-14.5 % Platelet Count 232 130-400 10^3/uL Mean Platelet Volume 10.2 9.0-12.2 fL Immature Granulocyte % (Auto) 1 % Neutrophils (%) (Auto) 78 H 42-75 % Lymphocytes (%) (Auto) 14 12-44 % Monocytes (%) (Auto) 7 0-12 % Eosinophils (%) (Auto) 0 0-10 % Basophils (%) (Auto) 0 0-10 % Neutrophils # (Auto) 4.2 1.8-7.8 10^3/uL Lymphocytes # (Auto) 0.7 L 1.0-4.0 10^3/uL Monocytes # (Auto) 0.4 0.0-1.0 10^3/uL Eosinophils # (Auto) 0.0 0.0-0.3 10^3/uL Basophils # (Auto) 0.0 0.0-0.1 10^3/uL Immature Granulocyte # (Auto) 0.1 0.0-0.1 10^3/uL Prothrombin Time 13.6 12.2-14.7 SEC INR Comment 1.0 0.8-1.4 Activated Partial Thromboplast Time 37 H 24-35 SEC D-Dimer 0.91 H 0.00-0.49 UG/ML Sodium Level 130 L 135-145 MMOL/L Potassium Level 4.9 3.6-5.0 MMOL/L Chloride Level 96 L 98-107 MMOL/L Carbon Dioxide Level 25 21-32 MMOL/L Anion Gap 9 5-14 MMOL/L Blood Urea Nitrogen 25 H 7-18 MG/DL Creatinine 2.00 H 0.60-1.30 MG/DL Estimat Glomerular Filtration Rate 33 BUN/Creatinine Ratio 13 Glucose Level 230 H 70-105 MG/DL Calcium Level 9.0 8.5-10.1 MG/DL Corrected Calcium 9.1 8.5-10.1 MG/DL Magnesium Level 1.9 1.6-2.4 MG/DL Total Bilirubin 0.5 0.1-1.0 MG/DL Aspartate Amino Transf (AST/SGOT) 57 H 5-34 U/L Alanine Aminotransferase (ALT/SGPT) 68 H 0-55 U/L Alkaline Phosphatase 56 40-136 U/L C-Reactive Protein High Sensitivity 13.16 H 0.00-0.50 MG/DL Total Protein 8.3 H 6.4-8.2 GM/DL Albumin 3.9 3.2-4.5 GM/DL Procalcitonin 0.17 H <0.10 NG/ML Blood Gas Puncture Site R RAD Blood Gas Patient Temperature 100.2 Arterial Blood pH 7.32 *L 7.37-7.43 Arterial Blood Partial Pressure CO2 43 35-45 MMHG Arterial Blood Partial Pressure O2 78 L 79-93 MMHG Arterial Blood HCO3 21 L 23-27 MMOL/L Arterial Blood Total CO2 22.7 21.0-31.0 MMOL/L Arterial Blood Oxygen Saturation 94 94-100 % Arterial Blood Base Excess -3.5 L -2.5-2.5 MMOL/L Jayden Test YES-POS Blood Gas Ventilator Setting NO Blood Gas Inspired Oxygen 4L Micro Results Microbiology 04/16/20 Influenza Types A,B Antigen (RACHAEL) - Final, Complete My Orders Orders - JUAN RODRÍGUEZ Arterial Blood Gas (04/16/20 15:39) Acetaminophen Tablet (Tylenol Tablet) (04/16/20 15:45) Ondansetron Injection (Zofran Injectio (04/16/20 15:45) Lactated Ringers (Lr 1000 Ml Iv Solution (04/16/20 15:45) Lactated Ringers (Lr 1000 Ml Iv Solution (04/16/20 15:45) Cbc With Automated Diff (04/16/20 15:44) Comprehensive Metabolic Panel (04/16/20 15:44) Hs C Reactive Protein (04/16/20 15:44) Procalcitonin (Pct) (04/16/20 15:44) Magnesium (04/16/20 15:44) Blood Culture (04/16/20 15:44) Sputum Culture (04/16/20 15:45) Protime With Inr (04/16/20 15:45) Partial Thromboplastin Time (04/16/20 15:45) Fibrin Degradation Products (04/16/20 15:45) Influenza A And B Antigens (04/16/20 15:45) O2 (04/16/20 15:47) Ed Iv/Invasive Line Start (04/16/20 15:54) Ed Iv/Invasive Line Start (04/16/20 15:54) Vital Signs Adult Sepsis Patie Q15M (04/16/20 15:54) Remove Rings In Anticipation O (04/16/20 15:54) Chest 1 View, Ap/Pa Only (04/16/20 16:16) Medications Given in ED Current Medications Medications Dose Ordered Sig/Seng Route Start Time Stop Time Status Last Admin Dose Admin Acetaminophen 1,000 mg ONCE ONCE PO 04/16/20 15:45 04/16/20 15:46 DC 04/16/20 15:48 1,000 MG Lactated Ringer's 1,000 ml @ 0 mls/hr Q0M ONCE IV 04/16/20 15:45 04/16/20 15:46 DC 04/16/20 15:48 1,000 MLS/HR Ondansetron HCl 8 mg ONCE ONCE IVP 04/16/20 15:45 04/16/20 15:46 DC 04/16/20 15:47 8 MG Vital Signs/I&O 04/16/20 15:29 Temp 37.8 Pulse 83 Resp 24 B/P (MAP) 169/73 (105) Pulse Ox 88 O2 Delivery Room Air Capillary Refill : Less Than 3 Seconds Blood Pressure Mean: 105 Progress Note #1: Time: 15:51 Progress Note Patient does have some increased work of breathing. Lungs are diminished but not wheezy. Suspect this is in relation to his recent diagnosis of COVID-19 which he is probably on day 6 of symptoms. We have his nausea, poor appetite and diarrhea he appears to be quite dehydrated. We're going to give him some Tylenol check some labs and give him some fluids. He has a history of fever and tachypnea and therefore is septic but there is no suspicion yet for bacterial pneumonia so we will hold off on antibiotics. Progress Note #2: Time: 17:13 Progress Note The patient has been maintaining around 94% on his baseline 3 L which is more than what he typically takes since he does not usually wear his oxygen. He has a little mixed respiratory and metabolic acidosis and is quite dry. After the fluids were going to recommend he stay in the hospital for monitoring his respiratory status and potentially using BiPAP to blow off some of his CO2. Dexamethasone ordered. Diagnostic Imaging Diagonstic Imaging: Xray Plain Films/CT/US/NM/MRI: chest Comments NAME: GINGER GIFFORD [facility] REC#: [id number] PT STATUS: REG ER : 1945 PHYSICIAN: JUAN RODRÍGUEZ MD ADMIT DATE: 04/16/20/ER Draft Date of Exam:04/16/20 CHEST 1 VIEW, AP/PA ONLY CHEST 1 VIEW, AP/PA ONLY Indication: Shortness of air, COVID positive Comparison: 07/20/2018 Findings: There are some ill-defined opacities in the periphery of the bilateral mid and lower lung zones. Left upper lobe hazy opacities are also present. No pleural effusion or pneumothorax. Stable marked enlargement of cardiac silhouette which may be part due to prominent mediastinal fat. Impression: 1. Bilateral pulmonary opacities have a typical appearance for COVID-19 pneumonia. Dictated on workstation # [id number] Dict: 04/16/20 1705 Trans: 04/16/20 1709 JENELLE [id number] Interpreted by: CLARITA KAPADIA MD Electronically signed by: Reviewed: Reviewed by Me Departure Communication (Admissions) Time/Spoke to Admitting Phy: 17:20 Discussed the case with Dr. Arizmendi and she agrees with fifth floor placement and consult pulmonology. Time/Spoke to Consulting Phy: 17:[address] Pena and he agrees to consult. He agrees with antibiotic broad-spectrum coverage, steroids. He feels the patient would be fine on cardiac stepdown. Impression Primary Impression: COVID-19 Additional Impressions: Acute on chronic respiratory failure with hypoxemia COPD exacerbation Sepsis Qualified Codes: A41.9 - Sepsis, unspecified organism; R65.20 - Severe sepsis without septic shock; J96.01 - Acute respiratory failure with hypoxia Pneumonia Qualified Codes: J18.9 - Pneumonia, unspecified organism Disposition: ADMITTED INPATIENT Condition: Stable Admissions Decision to Admit Reason: Admit from ER (General) Decision to Admit/Date: Apr 16, 2020 Time/Decision to Admit Time: 17:00 Departure-Patient Inst. Referrals: [facility] (PCP) Primary Care Physician DONTRELL SMART (Family) Primary Care Physician JUAN RODRÍGUEZ Apr 16, 2020 15:53
[2020-04-16 15:54] LABS: ABG PH 7.32 (7.37-7.43)
[2020-04-16 16:07] LABS: FIBRIN DEGRADATION PRODUCTS 0.91 UG/ML (0.00-0.49); PROTHROMBIN TIME PATIENT 13.6 SEC (12.2-14.7)
[2020-04-16 16:20] LABS: ALBUMIN 3.9 GM/DL (3.2-4.5); BILIRUBIN,TOTAL 0.5 MG/DL (0.1-1.0); MAGNESIUM 1.9 MG/DL (1.6-2.4); POTASSIUM 4.9 MMOL/L (3.6-5.0); TOTAL PROTEIN 8.3 GM/DL (6.4-8.2)
--- NOTE | 2020-04-16 17:09 | Diagnostic Imaging Report ---
CHEST 1 VIEW, AP/PA ONLY Indication: Shortness of air, COVID positive Comparison: 07/20/2018 Findings: There are some ill-defined opacities in the periphery of the bilateral mid and lower lung zones. Left upper lobe hazy opacities are also present. No pleural effusion or pneumothorax. Stable marked enlargement of cardiac silhouette which may be part due to prominent mediastinal fat. Impression: 1. Bilateral pulmonary opacities have a typical appearance for COVID-19 pneumonia. Dictated by: Dictated on workstation # [id number]
[2020-04-16] MEDS ORDERED: VANCOMYCIN 2000 MG/NS 500 ML IVPB IV NR ×2 (17:30)
[2020-04-16] MEDS ORDERED: VANCOMYCIN INJECTION 2,000 MG in NS IV 500 ML 500 ML IV ONE (17:32)
[2020-04-16] MEDS ORDERED: ENOXAPARIN 60 MG/0.6 ML (LOVENOX) SYR SC ONE ×2 (17:45)
[2020-04-16] MEDS ORDERED: CEFEPIME INJECTION 1,000 MG in WATER (STERILE) FOR INJECTION 10 ML IV ONE (17:45)
--- NOTE | 2020-04-16 18:06 | History & Physical-Hospitalist ---
History of Present Illness HPI/Chief Complaint CC: Dyspnea HPI: This is a 74yoWM clinic patient of [facility] who has COPD previous smoker who presented to the ER with increased dyspnea. COVID + 7 days prior. O2 maintained at home but non-compliant with it recently. Patient was placed on IV abx and O2. Source: patient Exam Limitations: no limitations Date Seen 04/16/20 Time Seen by a Provider: 18:00 Attending Physician Yanna Arizmendi DO [facility] Referring Physician Date of Admission Apr 16, 2020 at 17:30 Home Medications & Allergies Home Medications Reviewed patient Home Medication Reconciliation performed by pharmacy medication reconciliations nursing technician and/or nursing. Patients Allergies have been reviewed. Allergies Allergies Coded Allergies No Known Drug Allergies (Verified07/20/18) Past Redtapu-Tfbxct-Mhtqaz Hx Past Med/Social Hx: Reviewed Nursing Past Med/Soc Hx, Reviewed and Corrections made Patient Social History Marrital Status: single Employed/Student: retired Alcohol Use: Regular Use Alcohol Beverage of Choice: Beer, Whiskey Recreational Drug Use: No Smoking Status: Former Smoker Former Smoker, Quit: Jun 01, 2018 2nd Hand Smoke Exposure: Yes Recent Foreign Travel: No Contact w/other who traveled: No Recent Hopitalizations: No Recent Infectious Disease Expo: Yes (COVID +) Seasonal Allergies Seasonal Allergies: No Past Medical History Surgeries: Appendectomy, Gallbladder, Vascular Surgery Respiratory: COPD Cardiac: Hypertension Reproductive: No Sexually Transmitted Disease: No HIV/AIDS: No Gastrointestinal: Gastroesophageal Reflux Musculoskeletal: Arthritis, Chronic Back Pain Loss of Vision: Denies Hearing Impairment: Denies History of Blood Disorders: No Adverse Reaction to Blood [place]: No (N/A) Family History Hypertension Review of Systems Constitutional: see HPI Respiratory: dyspnea on exertion Physical Exam Physical Exam Vital Signs Vital Signs - First Documented 04/16/20 04/16/20 15:29 15:30 Temp 37.8 Pulse 83 Resp 24 B/P (MAP) 169/73 (105) Pulse Ox 88 O2 Delivery Room Air O2 Flow Rate 2.00 Capillary Refill : Less Than 3 Seconds Height, Weight, BMI Height: 6'0.00" Weight: 269lbs. 0.0oz. 122.386751up; 33.00 BMI Method:Stated General Appearance: No Apparent Distress, Chronically ill Eyes: Right Eye Normal Inspection, Right Eye PERRL HEENT: PERRL/EOMI, Normal ENT Inspection, Pharynx Normal, Moist Mucous Membranes Neck: Full Range of Motion, Normal Inspection, Non Tender Respiratory: Chest Non Tender, No Accessory Muscle Use, No Respiratory Distress, Decreased Breath Sounds, Wheezing Cardiovascular: Regular Rate, Rhythm, No Edema, No Gallop, No JVD, No Murmur, Normal Peripheral Pulses Gastrointestinal: Normal Bowel Sounds, No Organomegaly, No Pulsatile Mass, Non Tender, Soft Back: Normal Inspection, No CVA Tenderness, No Vertebral Tenderness Extremity: Normal Capillary Refill, Normal Inspection, Normal Range of Motion, Non Tender, No Calf Tenderness, No Pedal Edema Neurologic/Psychiatric: Alert, Oriented x3, No Motor/Sensory Deficits, Normal Mood/Affect Skin: Normal Color, Warm/Dry Lymphatic: No Adenopathy Results Results/Procedures Labs Laboratory Tests 04/16/20 15:35 04/17/20 03:50 Patient resulted labs reviewed. Assessment/Plan Admission Diagnosis Assessment: COVID-19 PNA AECOPD HTN Former smoker Plan: Dr Pena consult IV abx O2 Admission Status: Inpatient Order (span 2 midnights) Reason for Inpatient Admission: covid-19 Diagnosis/Problems Diagnosis/Problems (1) COVID-19 Status: Acute (2) Acute on chronic respiratory failure with hypoxemia Status: Acute (3) COPD exacerbation Status: Acute (4) Pneumonia Status: Acute Qualifiers: Pneumonia type: due to unspecified organism Laterality: unspecified laterality Lung location: unspecified part of lung Qualified Codes: J18.9 - Pneumonia, unspecified organism YANNA ARIZMENDI DO Apr 16, 2020 18:06
[2020-04-16 20:00] VITALS: BP 137/83
--- NOTE | 2020-04-16 20:05 | NUR ---
GINGER BALTA admitted to room 511-1, with an admitting diagnosis of COVID +, ACUTE ON CHRONIC COPD, on 04/16/20 from ED via WHEELCHAIR, accompanied by HOSPITAL STAFF. GINGER GIFFORD introduced to surroundings, call light, bed controls, phone, TV, temperature control, lights, meal times, smoking policy, visitor policy, side rail policy, bathrooms and showers. Patient Rights given to patient in the handbook.GINGER GIFFORD verbalizes understanding that [facility] is not responsible for the loss or damage to any personal effects or valuables that are kept in the patients posession during their hospitalization. GINGER GIFFORD verbalizes understanding of Interdisciplinary Patient Education. Patient and/or family were informed about the Rapid Response Team and its purpose.
[2020-04-16] MEDS ORDERED: CATHETER FLUSH 10 ML SYR IV PRN (20:15)
[2020-04-16] MEDS ORDERED: ONDANSETRON 4 MG/2 ML (SDV) Z0FRAN IV PRN (20:15)
[2020-04-16] MEDS ORDERED: LOPERAMIDE 2 MG (IMODIUM) TABLET PO PRN ×2 (20:15→20:45)
[2020-04-16] MEDS ORDERED: ACETAMINOPHEN 325 MG TABLET PO PRN ×2 (20:15→22:00)
--- NOTE | 2020-04-16 20:18 | NUR ---
CR 2.0; CR CL ~42; WT 113.3 KG; VANCO 2000 MG IV GIVEN IN ER; CONTINUE WITH VANCO 1250 MG IV Q24H X 2 MORE DAYS
[2020-04-16] MEDS ORDERED: ENOXAPARIN 300 MG/3 ML (LOVENOX) MULTI-DOSE VIAL SQ SCH (20:30)
[2020-04-16] MEDS ORDERED: guaiFENesin/CODEINE (ROBITUSSIN AC) 10ML UDC PO PRN (20:45)
[2020-04-16] MEDS ORDERED: CALCIUM CARBONATE 500 MG (TUMS) TAB.CHEW PO PRN (20:45)
[2020-04-16] MEDS ORDERED: ACETAMINOPHEN 500 MG TAB (TYLENOL) PO PRN (20:45)
[2020-04-16] MEDS ORDERED: DOCUSATE SODIUM 100 MG (COLACE) CAP PO PRN (20:45)
[2020-04-16] MEDS ORDERED: ONDANSETRON 4 MG/2 ML (SDV) Z0FRAN IVP PRN (20:45)
[2020-04-16 22:16] VITALS: BP 118/65
[2020-04-16] MEDS: SENNA W/DOCUSATE (SENOKOT S) TABLET PO SCH (22:16)
[2020-04-16] MEDS: amLODIPine 10 MG (NORVASC) TAB PO SCH (22:16)
[2020-04-16] MEDS: LACTATED RINGERS 1,000 ML IV SCH (22:18)
[2020-04-16] MEDS: TERAZOSIN 5 MG (HYTRIN) CAPSULE PO SCH (23:04)
[2020-04-16 23:17] VITALS: BP 141/66
[2020-04-17] VITALS (10 sets, daily range): BP systolic 109–169; BP diastolic 56–108
[2020-04-17] MEDS: CEFEPIME 1,000 MG/SWFI 10 ML IV PUSH IV SCH ×6 (02:51→17:52)
--- NOTE | 2020-04-17 04:00 | Pulmonary Consultation ---
History of Present Illness History of Present Illness Date Seen by Provider: Apr 17, 2020 Time Seen by Provider: 03:54 Date of Admission Allergies and Home Medications Allergies Coded Allergies: No Known Drug Allergies (Verified , 07/20/18) Home Medications Albuterol Sulfate 1 Puff Puff, 2 PUFF IH Q4H PRN for SHORTNESS OF BREATH, (Reported) 1 PUFF = 90 MCG Amlodipine Besylate 10 Mg Tablet, 10 MG PO HS, (Reported) Aspirin 81 Mg Tab.chew, 81 MG PO DAILY Prescribed by: ZANE LOMBARDO on 02/20/20 0840 Clopidogrel Bisulfate 75 Mg Tablet, 75 MG PO DAILY, (Reported) Lisinopril 40 Mg Tablet, 40 MG PO DAILY, (Reported) Terazosin HCl 10 Mg Capsule, 10 MG PO HS, (Reported) Past Cqvtfcd-Qrsymy-Valzfm Hx Patient Social History Alcohol Use: Regular Use Number of Drinks Today: AA Alcohol Beverage of Choice: Beer, Whiskey Smoking Status: Former Smoker Former Smoker, Quit: Jun 01, 2018 2nd Hand Smoke Exposure: Yes Recent Infectious Disease Expo: Yes (COVID +) Recent Hopitalizations: No Have you traveled recently?: No Seasonal Allergies Seasonal Allergies: No Past Medical History Surgeries: Yes (CAROTID ENDARTERECTOMY) Appendectomy, Gallbladder, Vascular Surgery Respiratory: Yes (O2 3L NC AT ALL TIMES DOESN'T WEAR IT REGULARLY) Pneumonia, COPD Cardiac: Yes Hypertension Neurological: No Reproductive Disorders: No Sexually Transmitted Disease: No HIV/AIDS: No Genitourinary: No Gastrointestinal: Yes Gastroesophageal Reflux Musculoskeletal: Yes Arthritis, Chronic Back Pain Endocrine: No HEENT: Yes (DENTURES) Loss of Vision: Denies Hearing Impairment: Denies Cancer: No Psychosocial: No Integumentary: No Blood Disorders: No Adverse Reaction/Blood Tranf: No (N/A) Family Medical History Hypertension Review of Systems Time Seen by Provider: 03:59 Sepsis Event Evaluation Height, Weight, BMI Height: 6'0.00" Weight: 269lbs. 0.0oz. 122.329048hy; 33.90 BMI Method:Stated Exam Exam Vital Signs Date Time Temp Pulse Resp B/P (MAP) Pulse Ox O2 Delivery O2 Flow Rate FiO2 04/17/20 00:47 57 04/16/20 23:30 94 Nasal Cannula 3.00 04/16/20 23:17 36.4 58 19 141/66 (91) 94 Nasal Cannula 3.00 04/16/20 22:16 64 20 118/65 (82) 94 Nasal Cannula 3.00 04/16/20 20:33 58 04/16/20 20:05 94 Nasal Cannula 3.00 04/16/20 20:00 36.6 58 22 137/83 (101) 93 Nasal Cannula 3.00 04/16/20 19:55 37.8 70 20 158/71 (105) 94 Nasal Cannula 2.00 04/16/20 15:30 94 Nasal Cannula 2.00 04/16/20 15:29 37.8 83 24 169/73 (105) 88 Room Air I & O 04/17/20 07:00 Intake Total 3910 ml Output Total 300 ml Balance 3610 ml Height & Weight Height: 6'0.00" Weight: 269lbs. 0.0oz. 122.941104zd; 33.90 BMI Method:Stated General Appearance: No Apparent Distress, WD/WN, Anxious HEENT: PERRL/EOMI, TMs Normal, Normal ENT Inspection Neck: Full Range of Motion, Normal Inspection, Non Tender Respiratory: Lungs Clear, No Accessory Muscle Use, Decreased Breath Sounds, Respiratory Distress (Mild with 3 L nasal cannula keeping sats 93 to 94%) Cardiovascular: Regular Rate, Rhythm, No Edema, Normal Peripheral Pulses Capillary Refill: Less Than 3 Seconds Peripheral Pulses: 2+ Radial Pulses (R), 2+ Radial Pulses (L) Gastrointestinal: non tender, soft Extremity: Normal Capillary Refill, Normal Inspection Neurologic/Psychiatric: Alert, Oriented x3 Skin: Normal Color, Warm/Dry Results Lab Laboratory Tests 04/16/20 15:35 Assessment/Plan Assessment/Plan COVID PNA -Decadron -Symptoms started 1wk ago -Dx 04/16 -CVP Pneumonia -Cefepime, and vanco currently -Campos cultures pending -MRSA Elevated LFTs -Monitor Hx of alcohol dependance -Monitor for withdrawals MADELYN ISBELL DO Apr 17, 2020 04:00
[2020-04-17 04:03] LABS: BASOPHILS % (AUTO) 0 % (0-10); EOSINOPHILS % (AUTO) 0 % (0-10); HEMATOCRIT 39 % (40-54); HEMOGLOBIN 12.7 g/dL (13.3-17.7); LYMPHOCYTES # (AUTO) 0.6 10^3/uL (1.0-4.0); LYMPHOCYTES % (AUTO) 18 % (12-44); MEAN CORPUSCULAR HEMOGLOBIN 33 pg (25-34); MEAN CORPUSCULAR HGB CONC 33 g/dL (32-36); MEAN CORPUSCULAR VOLUME 100 fL (80-99); MEAN PLATELET VOLUME 10.3 fL (9.0-12.2); MONOCYTES # (AUTO) 0.2 10^3/uL (0.0-1.0); MONOCYTES % (AUTO) 5 % (0-12); NEUTROPHILS # (AUTO) 2.6 10^3/uL (1.8-7.8); NEUTROPHILS % (AUTO) 76 % (42-75); PLATELET COUNT 197 10^3/uL (130-400); WHITE BLOOD COUNT 3.4 10^3/uL (4.3-11.0)
[2020-04-17 04:15] LABS: ALBUMIN 3.3 GM/DL (3.2-4.5); POTASSIUM 5.2 MMOL/L (3.6-5.0)
[2020-04-17 04:16] LABS: CALCIUM 8.3 MG/DL (8.5-10.1)
[2020-04-17 04:17] LABS: TOTAL PROTEIN 7.1 GM/DL (6.4-8.2)
[2020-04-17 04:19] LABS: BILIRUBIN,TOTAL 0.3 MG/DL (0.1-1.0)
[2020-04-17 04:21] LABS: CREATININE SERUM 1.56 MG/DL (0.60-1.30)
[2020-04-17] MEDS: inSUlin ASPART (NovoLOG) 1 UNIT/0.01 ML (CHARGE PER UNIT) SC SCH ×4 (05:24→21:36)
[2020-04-17] MEDS: ENOXAPARIN 300 MG/3 ML (LOVENOX) MULTI-DOSE VIAL SQ SCH ×2 (05:25→17:53)
[2020-04-17] MEDS ORDERED: NS IV 500 ML 500 ML ONE (08:06)
--- NOTE | 2020-04-17 08:41 | Diagnostic Imaging Report ---
INDICATION: Pneumonia. Comparison is made to prior examination 04/16/2020. FINDINGS: There is cardiomegaly. There may be some minimal patchy bibasilar infiltrates. There is no pleural effusion or pneumothorax. Mediastinum is unremarkable. IMPRESSION: Cardiomegaly and questionable minimal patchy bibasilar pulmonary infiltrates. Dictated by: Dictated on workstation # [id number]
[2020-04-17] MEDS ORDERED: ASPIRIN 81 MG CHEW (CHILDREN'S ASA) PO SCH (09:00)
[2020-04-17] MEDS: SENNA W/DOCUSATE (SENOKOT S) TABLET PO SCH ×2 (09:14→21:35)
[2020-04-17] MEDS: ASPIRIN 81 MG CHEW (CHILDREN'S ASA) PO SCH (09:14)
[2020-04-17] MEDS: CLOPIDOGREL 75 MG (PLAVIX) TABLET PO SCH (09:14)
[2020-04-17] MEDS: LACTATED RINGERS 1,000 ML IV SCH ×2 (09:14→21:34)
[2020-04-17] MEDS ORDERED: METO50TA7 PO (10:18)
[2020-04-17] MEDS ORDERED: ASPI-999 PO (10:18)
--- NOTE | 2020-04-17 10:22 | NUR ---
SPOKE WITH THE PT (CALLED THE ROOM PHONE), ALSO CALLED HIS DAUGHTER (JUSTINA) AND WENT THRU THE EXT MED HISTORY TO COMPLETE THE MED REC PT WAS NOT SURE OF HIS MEDICATIONS AND SUGGESTED I REACH OUT TO HIS DAUGHTER. I CALLED JUSTINA AND SHE WAS ABLE TO NAME ALL THE PTS MEDS AND LET ME KNOW HE TAKES ALL HIS PRESCRIPTION MEDICATIONS AT BEDTIME. OTC MEDS: ASPIRIN 81 CHEW
[2020-04-17 11:01] LABS: BILIRUBIN,URINE NEGATIVE (NEGATIVE); CLARITY,URINE CLEAR; COLOR,URINE DARK YELLOW; GLUCOSE, URINE (UA) 2+ (NEGATIVE); KETONES,URINE NEGATIVE (NEGATIVE); LEUKOCYTE ESTERASE ,URINE NEGATIVE (NEGATIVE); NITRITE,URINE NEGATIVE (NEGATIVE); PROTEIN,URINE 2+ (NEGATIVE)
[2020-04-17 11:08] LABS: WBC,URINE RARE /HPF
[2020-04-17 11:09] LABS: AMORPHOUS SEDIMENT,UR FEW AMOR URATES /LPF; BACTERIA,URINE NEGATIVE /HPF; SQUAMOUS EPITHELIAL CELL,UR RARE /HPF
--- NOTE | 2020-04-17 11:56 | Progress Note - Hospitalist ---
Subjective HPI/CC On Admission Date Seen by Provider: Apr 17, 2020 Time Seen by Provider: 12:00 CC: Dyspnea HPI: This is a 74yoWM clinic patient of [facility] who has COPD previous smoker who presented to the ER with increased dyspnea. COVID + 7 days prior. O2 maintained at home but non-compliant with it recently. Patient was placed on IV abx and O2. Subjective/Events-last exam Patient doing better Moving to 4th floor today Breathing better Reviewed meds No BM yet today Review of Systems General: Fatigue, Malaise Pulmonary: Dyspnea, Cough Focused Exam Time of Focused Exam: 17:27 Objective Exam Vital Signs Vital Signs Date Time Temp Pulse Resp B/P (MAP) Pulse Ox O2 Delivery O2 Flow Rate FiO2 04/18/20 04:00 36.6 83 18 144/56 (85) 91 Nasal Cannula 1.50 04/17/20 14:04 21 Capillary Refill : Less Than 3 Seconds General Appearance: No Apparent Distress, WD/WN, Chronically ill Respiratory: No Accessory Muscle Use, No Respiratory Distress, Decreased Breath Sounds Cardiovascular: Regular Rate, Rhythm Neurologic/Psychiatric: Alert, Oriented x3, No Motor/Sensory Deficits, Normal Mood/Affect Results/Procedures Lab Patient resulted labs reviewed. Assessment/Plan Assessment and Plan Assess & Plan/Chief Complaint Assessment: COVID-19 PNA AECOPD HTN Former smoker Plan: Dr Pena consult IV abx O2 04/17/20: Move to 4th floor Improved status Diagnosis/Problems Diagnosis/Problems (1) COVID-19 Status: Acute (2) Acute on chronic respiratory failure with hypoxemia Status: Acute (3) COPD exacerbation Status: Acute (4) Pneumonia Status: Acute Qualifiers: Pneumonia type: due to unspecified organism Laterality: unspecified laterality Lung location: unspecified part of lung Qualified Codes: J18.9 - Pneumonia, unspecified organism ELMIRA OLIVAS DO Apr 17, 2020 11:56
--- NOTE | 2020-04-17 15:15 | NUR ---
REPORT RECEIVED FROM PASQUALE KELLEY RN
--- NOTE | 2020-04-17 15:30 | NUR ---
PT ARRIVED TO FLOOR, ORIENTED TO ROOM AND CALL LIGHT. PT AGREES TO CALL BEFORE GETTING OUT OF BED. PT DENIES NEEDS AT THIS TIME, WILL CONTINUE TO MONITOR
[2020-04-17] MEDS ORDERED: RT-ALBUTEROL INHALER HFA (VENTOLIN HFA) 18 GM IH PRN (16:00)
[2020-04-17] MEDS ORDERED: VANCOMYCIN INJECTION 1,500 MG in NS IV 500 ML 500 ML IV SCH (17:00)
[2020-04-17] MEDS: RT-ALBUTEROL INHALER HFA (VENTOLIN HFA) 18 GM IH SCH (18:46)
[2020-04-17] MEDS: amLODIPine 10 MG (NORVASC) TAB PO SCH (21:35)
[2020-04-17] MEDS: TERAZOSIN 5 MG (HYTRIN) CAPSULE PO SCH (21:35)
[2020-04-18] VITALS: BP 160/68
[2020-04-18] MEDS ORDERED: CEFEPIME 1 GM/10 ML (MAXIPIME) VIAL ONE (01:36)
[2020-04-18] MEDS ORDERED: WATER (STERILE) FOR INJECTION 10 ML ONE (01:37)
[2020-04-18] MEDS: HYDROcodone/APAP 5 MG/325 MG (LORTAB) TAB PO PRN ×2 (01:48→20:18)
[2020-04-18] MEDS: CEFEPIME 1,000 MG/SWFI 10 ML IV PUSH IV SCH ×6 (01:48→18:16)
[2020-04-18] MEDS: RT-ALBUTEROL INHALER HFA (VENTOLIN HFA) 18 GM IH SCH ×6 (01:50→22:42)
[2020-04-18] MEDS: ALPRAZolam 0.25 MG (XANAX) TAB PO PRN ×2 (01:56→20:18)
[2020-04-18 04:00] VITALS: BP 144/56
[2020-04-18] MEDS: ENOXAPARIN 300 MG/3 ML (LOVENOX) MULTI-DOSE VIAL SQ SCH ×2 (06:14→18:57)
[2020-04-18] MEDS: inSUlin ASPART (NovoLOG) 1 UNIT/0.01 ML (CHARGE PER UNIT) SC SCH ×4 (06:14→22:41)
[2020-04-18 06:51] LABS: BASOPHILS % (AUTO) 0 % (0-10); EOSINOPHILS % (AUTO) 0 % (0-10); HEMATOCRIT 36 % (40-54); HEMOGLOBIN 12.1 g/dL (13.3-17.7); LYMPHOCYTES # (AUTO) 0.9 10^3/uL (1.0-4.0); LYMPHOCYTES % (AUTO) 9 % (12-44); MEAN CORPUSCULAR HEMOGLOBIN 33 pg (25-34); MEAN CORPUSCULAR HGB CONC 34 g/dL (32-36); MEAN CORPUSCULAR VOLUME 98 fL (80-99); MEAN PLATELET VOLUME 10.5 fL (9.0-12.2); MONOCYTES # (AUTO) 0.5 10^3/uL (0.0-1.0); MONOCYTES % (AUTO) 5 % (0-12); NEUTROPHILS # (AUTO) 7.8 10^3/uL (1.8-7.8); NEUTROPHILS % (AUTO) 85 % (42-75); PLATELET COUNT 225 10^3/uL (130-400); WHITE BLOOD COUNT 9.1 10^3/uL (4.3-11.0)
[2020-04-18 07:08] LABS: ALANINE AMINOTRANSFERASE 47 U/L (0-55); ALBUMIN 3.2 GM/DL (3.2-4.5); ALKALINE PHOSPHATASE 48 U/L (40-136); BILIRUBIN,TOTAL 0.2 MG/DL (0.1-1.0); BUN/CREATININE RATIO 19; CALCIUM 9.1 MG/DL (8.5-10.1); CARBON DIOXIDE 20 MMOL/L (21-32); CHLORIDE 102 MMOL/L (98-107); CREATININE SERUM 1.18 MG/DL (0.60-1.30); GFR ESTIMATED > 60; GLUCOSE 227 MG/DL (70-105); POTASSIUM 4.5 MMOL/L (3.6-5.0); SODIUM 133 MMOL/L (135-145); TOTAL PROTEIN 6.9 GM/DL (6.4-8.2)
[2020-04-18 08:00] VITALS: BP 182/84
[2020-04-18] MEDS: CLOPIDOGREL 75 MG (PLAVIX) TABLET PO SCH ×2 (09:53→20:14)
[2020-04-18] MEDS: SENNA W/DOCUSATE (SENOKOT S) TABLET PO SCH ×2 (09:53→20:14)
[2020-04-18] MEDS: ASPIRIN 81 MG CHEW (CHILDREN'S ASA) PO SCH (09:53)
--- NOTE | 2020-04-18 11:13 | Progress Note - Hospitalist ---
Subjective HPI/CC On Admission Date Seen by Provider: Apr 18, 2020 Time Seen by Provider: 11:00 CC: Dyspnea HPI: This is a 74yoWM clinic patient of [facility] who has COPD previous smoker who presented to the ER with increased dyspnea. COVID + 7 days prior. O2 maintained at home but non-compliant with it recently. Patient was placed on IV abx and O2. Subjective/Events-last exam Patient is improved No pain reported Checked meds and labs Dyspnea is less O2 maintained Accuchecks added with insulin for high sugars Review of Systems General: Fatigue, Malaise Pulmonary: Dyspnea, Cough Neurological: Weakness Focused Exam Time of Focused Exam: 17:27 Objective Exam Vital Signs Vital Signs Date Time Temp Pulse Resp B/P (MAP) Pulse Ox O2 Delivery O2 Flow Rate FiO2 04/18/20 20:22 91 Vapotherm 30.00 65 04/18/20 19:34 36.8 78 20 187/77 (113) Capillary Refill : Less Than 3 SecondsLess Than 3 Seconds General Appearance: No Apparent Distress, WD/WN Respiratory: Chest Non Tender, Lungs Clear, Normal Breath Sounds, No Accessory Muscle Use, No Respiratory Distress Cardiovascular: Regular Rate, Rhythm, No Edema, No Gallop, No JVD, No Murmur, Normal Peripheral Pulses Neurologic/Psychiatric: Alert, Oriented x3, No Motor/Sensory Deficits, Normal Mood/Affect Results/Procedures Lab Laboratory Tests 04/18/20 06:43 Patient resulted labs reviewed. Assessment/Plan Assessment and Plan Assess & Plan/Chief Complaint Assessment: COVID-19 PNA AECOPD HTN Former smoker Plan: Dr Pena consult IV abx O2 04/17/20: Move to 4th floor Improved status 04/18/20: Monitor O2 Monitor sugar Diagnosis/Problems Diagnosis/Problems (1) COVID-19 Status: Acute (2) Acute on chronic respiratory failure with hypoxemia Status: Acute (3) COPD exacerbation Status: Acute (4) Pneumonia Status: Acute Qualifiers: Pneumonia type: due to unspecified organism Laterality: unspecified laterality Lung location: unspecified part of lung Qualified Codes: J18.9 - Pneumonia, unspecified organism ELMIRA OLIVAS DO Apr 18, 2020 11:13
[2020-04-18 12:00] VITALS: BP 170/76
[2020-04-18] MEDS ORDERED: amLODIPine 10 MG (NORVASC) TAB PO ONE (12:30)
--- NOTE | 2020-04-18 13:31 | Physician Query Clarification ---
"Physician Query-General Query to Physician: The medical record reflects the following clinical scenario: History/Risk factors: Covid 19, PNA Clinical Findings: VS/Lab Admission: HR 83, RR 24, T 37.8, 02 Sat 88% on RA, WBC 5.3 ->3.4 Treatment: 2L LR in ER, Vancomycin/Ceftriaxone IV started within 3 hours of arrival, Dexamethasone Question: Do you agree with the impression of Sepsis per Dr. Arlene Olivarez? If you agree, please document in Progress Notes or Discharge Summary. 1. Yes; will document Sepsis with Covid 19 and PNA present on admission in the Progress Notes 2. No; will continue to document Covid 19 and PNA present on admission in the Progress Notes 3. Other; will document explanation of clinical findings 4. Clinically undetermined; no explanation for clinical findings Please remember a lack of response to the above will prompt a phone page by CDI/coding staff. In responding to this query, please exercise your independent professional judgment. The purpose of this communication is to more accurately reflect the complexity of your patients condition. The fact that a question is asked does not imply that any particular answer is desired or expected. Thank you for timely response to this clarification. Vaishnavi Ansari, MSN, RN RN Specialist-Clinical Doc Improvement CD -Health Info Mgmt Operations [address] [facility] t: [phone] | f: [phone] If you are unable to reach me at my extension, I may be working from home. Andrea bernal contact me at [phone] PHYSICIAN RESPONSE: Based on the clinical findings in the record, please respond to the query above on this document as an addendum. Physician Response: Physician Response 2 If you have questions please contact: Librarian: Ext: Thank you for your time and cooperation. Clinical Curriculum And Assessment Director/Librarian This is a permanent part of the medical record VAISHNAVI ANSARI Apr 18, 2020 13:30 ELMIRA OLIVAS DO Apr 18, 2020 16:52"
[2020-04-18 15:54] VITALS: BP 182/78
[2020-04-18 19:34] VITALS: BP 187/77
[2020-04-18] MEDS: meTOproloL SUCCINATE 50 MG (TOPROL XL) TAB PO SCH (20:14)
[2020-04-18] MEDS: TERAZOSIN 5 MG (HYTRIN) CAPSULE PO SCH (20:14)
[2020-04-18] MEDS: lisINopril 40 MG (PRINIVIL) TABLET PO SCH (20:14)
[2020-04-18] MEDS: amLODIPine 10 MG (NORVASC) TAB PO SCH (20:15)
[2020-04-18] MEDS: MELATONIN 3 MG TABLET PO PRN (20:18)
[2020-04-18] MEDS: diphenhydrAMINE 25 MG TAB (BENADRYL) PO PRN (20:18)
[2020-04-19] VITALS (9 sets, daily range): BP systolic 125–170; BP diastolic 57–91
[2020-04-19] MEDS: RT-ALBUTEROL INHALER HFA (VENTOLIN HFA) 18 GM IH SCH ×6 (01:53→21:36)
[2020-04-19] MEDS: CEFEPIME 1,000 MG/SWFI 10 ML IV PUSH IV SCH ×6 (01:53→16:39)
--- NOTE | 2020-04-19 05:10 | Progress Note - Hospitalist ---
Subjective HPI/CC On Admission Date Seen by Provider: Apr 19, 2020 Time Seen by Provider: 09:45 CC: Dyspnea HPI: This is a 74yoWM clinic patient of [facility] who has COPD previous smoker who presented to the ER with increased dyspnea. COVID + 7 days prior. O2 maintained at home but non-compliant with it recently. Patient was placed on IV abx and O2. Subjective/Events-last exam Patient seen and examined Patient denies pain Maintained on Vapotherm up from [place] hi-fabian Checked meds and labs After rounds RN notified me she had to turn Vapotherm up to 100% and ABG checked and it was stable but O2 77 was concerning Patient continued to decline so patient was moved to ICU as precautionary measure Updated Dr Benson who is covering ICU Review of Systems General: Fatigue, Malaise Pulmonary: Dyspnea, Cough Focused Exam Time of Focused Exam: 17:27 Objective Exam Vital Signs Vital Signs Date Time Temp Pulse Resp B/P (MAP) Pulse Ox O2 Delivery O2 Flow Rate FiO2 04/19/20 19:41 36.8 04/19/20 18:21 68 21 91 100.00 04/19/20 15:31 137/91 (106) Vapotherm 04/19/20 15:23 75 Capillary Refill : Less Than 3 SecondsLess Than 3 Seconds General Appearance: No Apparent Distress, WD/WN, Anxious, Chronically ill Respiratory: No Accessory Muscle Use, No Respiratory Distress, Decreased Breath Sounds Cardiovascular: Regular Rate, Rhythm Neurologic/Psychiatric: Alert, Oriented x3, No Motor/Sensory Deficits, Normal Mood/Affect Results/Procedures Lab Laboratory Tests 04/19/20 05:50 Patient resulted labs reviewed. Assessment/Plan Assessment and Plan Assess & Plan/Chief Complaint Assessment: COVID-19 PNA AECOPD HTN Former smoker Home O2 non-compliant Bacterial PNA placed on Cefepime and DC Vanc yesterday Plan: Dr Pena consult IV abx O2 04/17/20: Move to 4th floor Improved status 04/18/20: Monitor O2 Monitor sugar 04/19/20: Vapotherm Move to ICU May need biPAP and intubation Lung function is tenuous Diagnosis/Problems Diagnosis/Problems (1) COVID-19 Status: Acute (2) Acute on chronic respiratory failure with hypoxemia Status: Acute (3) COPD exacerbation Status: Acute (4) Pneumonia Status: Acute Qualifiers: Pneumonia type: due to unspecified organism Laterality: unspecified laterality Lung location: unspecified part of lung Qualified Codes: J18.9 - Pneumonia, unspecified organism ELMIRA OLIVAS DO Apr 19, 2020 05:10
[2020-04-19] MEDS: inSUlin ASPART (NovoLOG) 1 UNIT/0.01 ML (CHARGE PER UNIT) SC SCH ×4 (05:49→21:12)
[2020-04-19] MEDS: ENOXAPARIN 300 MG/3 ML (LOVENOX) MULTI-DOSE VIAL SQ SCH ×2 (06:07→16:39)
[2020-04-19 06:34] LABS: BASOPHILS % (AUTO) 0 % (0-10); EOSINOPHILS % (AUTO) 0 % (0-10); HEMATOCRIT 36 % (40-54); HEMOGLOBIN 12.1 g/dL (13.3-17.7); LYMPHOCYTES # (AUTO) 0.8 10^3/uL (1.0-4.0); LYMPHOCYTES % (AUTO) 11 % (12-44); MEAN CORPUSCULAR HEMOGLOBIN 33 pg (25-34); MEAN CORPUSCULAR HGB CONC 33 g/dL (32-36); MEAN CORPUSCULAR VOLUME 99 fL (80-99); MEAN PLATELET VOLUME 10.8 fL (9.0-12.2); MONOCYTES # (AUTO) 0.4 10^3/uL (0.0-1.0); MONOCYTES % (AUTO) 5 % (0-12); NEUTROPHILS # (AUTO) 5.5 10^3/uL (1.8-7.8); NEUTROPHILS % (AUTO) 82 % (42-75); PLATELET COUNT 248 10^3/uL (130-400); WHITE BLOOD COUNT 6.6 10^3/uL (4.3-11.0)
[2020-04-19 06:36] LABS: ALBUMIN 3.1 GM/DL (3.2-4.5)
[2020-04-19 06:37] LABS: CHLORIDE 101 MMOL/L (98-107); POTASSIUM 4.9 MMOL/L (3.6-5.0); SODIUM 135 MMOL/L (135-145)
[2020-04-19 06:38] LABS: CALCIUM 8.9 MG/DL (8.5-10.1)
[2020-04-19 06:39] LABS: GLUCOSE 184 MG/DL (70-105); TOTAL PROTEIN 6.8 GM/DL (6.4-8.2)
[2020-04-19 06:40] LABS: CARBON DIOXIDE 25 MMOL/L (21-32)
[2020-04-19 06:41] LABS: BILIRUBIN,TOTAL 0.3 MG/DL (0.1-1.0)
[2020-04-19 06:42] LABS: ALKALINE PHOSPHATASE 46 U/L (40-136)
[2020-04-19 06:43] LABS: CREATININE SERUM 1.17 MG/DL (0.60-1.30); GFR ESTIMATED > 60
[2020-04-19 06:44] LABS: BUN/CREATININE RATIO 21
[2020-04-19 06:46] LABS: ALANINE AMINOTRANSFERASE 40 U/L (0-55)
[2020-04-19] MEDS ORDERED: ASPIRIN 81 MG CHEW (CHILDREN'S ASA) PO SCH (09:00)
[2020-04-19] MEDS: CLOPIDOGREL 75 MG (PLAVIX) TABLET PO SCH ×2 (09:37→21:12)
[2020-04-19] MEDS: ASPIRIN 81 MG CHEW (CHILDREN'S ASA) PO SCH (09:37)
[2020-04-19] MEDS: SENNA W/DOCUSATE (SENOKOT S) TABLET PO SCH ×2 (09:38→21:12)
--- NOTE | 2020-04-19 13:30 | NUR ---
PT STANDING AT BEDSIDE TO URINATE. D/T BPH HISTORY PT IS UNABLE TO URINATE WHILE SITTING IN BED. PT O2 SAT DROPS TO 73%. 1340: PT RETURNS TO BED. THIS RN INCREASES VAPO TO 40L 100% AND ASSISTS PT TO A SIDE LYING POSITION. 1349: DEISY NOTIFIED OF DECLINE IN PT CONDITIONS. SAEED ORDER OBTAINED. ABG COLLECTED. 1400: PT SATS UP TO 95% AT THIS TIME. VAPO TITRATED DOWN TO 35L 100%. 1430: VAPO TITRATED DOWN TO 35L 85%. PT REMAINS SIDE LYING LEFT. O2 SATS AT 94%. 1450: VAPO TITRATED DOWN TO 35L 75%. PT REMAINS SIDE LYING LEFT. O2 SATS AT 95%. 1550: PT ATTEMPTS TO HAVE BM ON BEDPAN AT THIS TIME. O2 SATS FALL TO 89%. VAPO THEN INCREASED TO 35L 90%. O2 SATS INCREASE TO 90%. 1610: PT UNABLE TO HAVE BM ON BEDPAN; INSISTS THAT HE IS ALLOWED TO USE BSC. THIS RN EXPLAINS THAT HIS O2 SATS WILL NOT TOLERATED HIM GETTING UP. PT VERBALIZES UNDERSTANDING, BUT IS STILL INSISTENT ON USING BSC. THIS RN INCREASES VAPO TO 40L 100% PRIOR TO ASSISTING PT TO TRANSFER. 1620: PT O2 SATS FALL TO 83%. PT ENCOURAGED TO TRANSFER BACK TO BED. 1630: PT BACK TO BED. PT REQUESTS TO STAY SITTING UP. THIS RN EDUCATES PT ON BENEFITS OF SIDE LYING IF PRONING IS NOT TOLERATED. PT STILL REQUESTS TO SIT [place]I [place]. VAPO AT 40L 100%. PT EDUCATED ON IMPORTANCE OF DEEP BREATHING THROUGH THE NOSE. O2 SATS INCREASED TO 88%. 1650: THIS RN REQUESTS THAT PT RETURN TO SIDE LYING POSITION. PT AGREES. 1700: PT O2 INCREASES TO 91%. NEW IV STARTED 20G LEFT FA. 1730: PT ON PHONE WITH DAUGHTER. O2 SATS DROP TO 87%. THIS RN AGAIN ENCOURAGES DEEP BREATHING. 1745: UNABLE TO GET PT SATS ABOVE 87% ON VAPO AND SIDE LYING. DEISY NOTIFIED. WILL TRANSFER TO ICU.
[2020-04-19 14:22] LABS: ABG BASE EXCESS -0.1 MMOL/L (-2.5-2.5); ABG OXYGEN SATURATION 93 % (94-100); ABG PCO2 43 MMHG (35-45); ABG PH 7.37 (7.37-7.43); ABG PO2 77 MMHG (79-93); ABG TCO2 25.9 MMOL/L (21.0-31.0)
[2020-04-19 14:26] LABS: ALLENS TEST YES-POS; INSPIRED O2 VAPOTHERM; PATIENT TEMP 36.6; VENTILATOR NO
[2020-04-19] MEDS ORDERED: SALINE NASAL SPRAY (OCEAN) 45 ML BTL PRN (16:45)
--- NOTE | 2020-04-19 17:56 | NUR ---
PT MAXED ON VAPOTHERM AT THIS TIME. DEISY NOTIFIED. PT WILL TRANSFER TO ICU.
[2020-04-19] MEDS ORDERED: LORazepam INJ 2 MG/ML (ATIVAN) VIAL IVP STA (17:57)
[2020-04-19] MEDS ORDERED: LORazepam INJ 2 MG/ML (ATIVAN) VIAL ONE (18:01)
[2020-04-19] MEDS: TERAZOSIN 5 MG (HYTRIN) CAPSULE PO SCH (21:12)
[2020-04-19] MEDS: amLODIPine 10 MG (NORVASC) TAB PO SCH (21:12)
[2020-04-19] MEDS: meTOproloL SUCCINATE 50 MG (TOPROL XL) TAB PO SCH (21:12)
[2020-04-19] MEDS: lisINopril 40 MG (PRINIVIL) TABLET PO SCH (21:12)
[2020-04-20] VITALS (25 sets, daily range): BP systolic 102–160; BP diastolic 41–99
[2020-04-20] MEDS ORDERED: CEFEPIME 1 GM/10 ML (MAXIPIME) VIAL ONE ×3 (01:37→16:49)
[2020-04-20] MEDS ORDERED: WATER (STERILE) FOR INJECTION 10 ML ONE ×2 (01:37→16:49)
[2020-04-20] MEDS: CEFEPIME 1,000 MG/SWFI 10 ML IV PUSH IV SCH ×6 (01:51→17:09)
[2020-04-20] MEDS: RT-ALBUTEROL INHALER HFA (VENTOLIN HFA) 18 GM IH SCH ×6 (02:41→21:51)
[2020-04-20 03:51] LABS: BASOPHILS % (AUTO) 0 % (0-10); EOSINOPHILS % (AUTO) 0 % (0-10); HEMATOCRIT 36 % (40-54); HEMOGLOBIN 12.2 g/dL (13.3-17.7); LYMPHOCYTES # (AUTO) 0.8 10^3/uL (1.0-4.0); LYMPHOCYTES % (AUTO) 12 % (12-44); MEAN CORPUSCULAR HEMOGLOBIN 33 pg (25-34); MEAN CORPUSCULAR HGB CONC 34 g/dL (32-36); MEAN CORPUSCULAR VOLUME 97 fL (80-99); MONOCYTES # (AUTO) 0.4 10^3/uL (0.0-1.0); MONOCYTES % (AUTO) 7 % (0-12); NEUTROPHILS # (AUTO) 5.4 10^3/uL (1.8-7.8); NEUTROPHILS % (AUTO) 80 % (42-75); PLATELET COUNT 247 10^3/uL (130-400); WHITE BLOOD COUNT 6.8 10^3/uL (4.3-11.0)
[2020-04-20 04:09] LABS: CHLORIDE 100 MMOL/L (98-107); POTASSIUM 4.9 MMOL/L (3.6-5.0); SODIUM 132 MMOL/L (135-145)
[2020-04-20 04:10] LABS: GLUCOSE 196 MG/DL (70-105)
[2020-04-20 04:12] LABS: CARBON DIOXIDE 24 MMOL/L (21-32)
[2020-04-20 04:14] LABS: CREATININE SERUM 1.05 MG/DL (0.60-1.30); GFR ESTIMATED > 60; PHOSPHORUS 2.6 MG/DL (2.3-4.7)
[2020-04-20 04:15] LABS: BUN/CREATININE RATIO 27
[2020-04-20 04:16] LABS: MAGNESIUM 2.1 MG/DL (1.6-2.4)
[2020-04-20] MEDS: MAGNESIUM 1 GM/100 ML IVPB 100 ML IV SCH (05:52)
[2020-04-20] MEDS: KCL 20 MEQ TAB (K-DUR) PO SCH (05:52)
[2020-04-20] MEDS: POTASSIUM CL 10MEQ/50ML IVPB 50 ML IV SCH (05:52)
[2020-04-20] MEDS: inSUlin ASPART (NovoLOG) 1 UNIT/0.01 ML (CHARGE PER UNIT) SC SCH ×4 (06:41→20:26)
[2020-04-20] MEDS: ASPIRIN 81 MG CHEW (CHILDREN'S ASA) PO SCH (08:56)
[2020-04-20] MEDS: ENOXAPARIN 300 MG/3 ML (LOVENOX) MULTI-DOSE VIAL SQ SCH ×2 (08:57→20:31)
[2020-04-20] MEDS: SENNA W/DOCUSATE (SENOKOT S) TABLET PO SCH ×2 (08:57→19:41)
--- NOTE | 2020-04-20 11:11 | Progress Note - Hospitalist ---
YADIRALYNDAVIVIEN, 04/20/20 1111: Subjective HPI/CC On Admission Time Seen by Provider: 09:57 CC: Dyspnea HPI: This is a 74yoWM clinic patient of [facility] who has COPD previous smoker who presented to the ER with increased dyspnea. COVID + 7 days prior. O2 maintained at home but non-compliant with it recently. Patient was placed on IV abx and O2. Subjective/Events-last exam Mr. Chinchilla was seen and examined by Dr. Benson in the ICU for acute respiratory failure secondary to COVID19 infection and bacterial pneumonia. He voices no concerns today at this time. Is currently on vapotherm 100%/40 and off BiPAP. Focused Exam Time of Focused Exam: 17:27 Objective Exam Vital Signs Vital Signs Date Time Temp Pulse Resp B/P (MAP) Pulse Ox O2 Delivery O2 Flow Rate FiO2 04/20/20 11:00 57 15 114/94 (101) 96 Vapotherm 40.00 90.00 04/20/20 10:18 100 04/20/20 07:41 36.0 Capillary Refill : Less Than 3 SecondsLess Than 3 Seconds General Appearance: Obese Respiratory: Lungs Clear, Normal Breath Sounds Cardiovascular: Regular Rate, Rhythm, Normal Peripheral Pulses Gastrointestinal: Normal Bowel Sounds, Soft Results/Procedures Lab Laboratory Tests 04/20/20 03:01 Patient resulted labs reviewed. Assessment/Plan Assessment and Plan Assess & Plan/Chief Complaint Acute hypoxic respiratory failure secondary to COVID19 pneumonia Acute exacerbation of COPD Former smoker Home O2 requirement but noncompliant Bacterial pneumonia * On vapotherm 100%/40 and off BiPAP * s/p CVP 04/17 * Cefepime day 3 * Decadron day 4 * Albuterol, RT therapies * Monitor closely * Not a candidate for remdesivir Hypertension * Home medications restarted Diet: CHO 75 DVT PPx: lovenox FULL CODE MARIA ESTHER BENSON MD 04/20/20 1210: Subjective HPI/CC On Admission Date Seen by Provider: Apr 20, 2020 Supervisory-Addendum Brief Verification & Attestation Participated in pt care: history, MDM, physical Personally performed: exam, history, MDM, supervision of care Care discussed with: Medical Student Procedures: n/a Verification and Attestation of Medical Student E/M Service A medical student performed and documented this service in my presence. I thomas menon and verified all information documented by the medical student and made modifications to such information, when appropriate. I personally performed the physical exam and medical decision making. Maria Esther Benson, Apr 20, 2020,14:06 VIVIEN SANTIAGO, Apr 20, 2020 11:11 MARIA ESTHER BENSON MD Apr 20, 2020 12:10
--- NOTE | 2020-04-20 11:56 | NUR ---
Updated pt's daughter, Thomas, at this time.
[2020-04-20] MEDS: TERAZOSIN 5 MG (HYTRIN) CAPSULE PO SCH (20:29)
[2020-04-20] MEDS: meTOproloL SUCCINATE 50 MG (TOPROL XL) TAB PO SCH (20:29)
[2020-04-20] MEDS: MELATONIN 3 MG TABLET PO PRN (20:30)
[2020-04-20] MEDS: diphenhydrAMINE 25 MG TAB (BENADRYL) PO PRN (20:30)
[2020-04-20] MEDS: amLODIPine 10 MG (NORVASC) TAB PO SCH (20:30)
[2020-04-20] MEDS: lisINopril 40 MG (PRINIVIL) TABLET PO SCH (20:30)
[2020-04-20] MEDS: CLOPIDOGREL 75 MG (PLAVIX) TABLET PO SCH (20:30)
[2020-04-21] VITALS (21 sets, daily range): BP systolic 123–179; BP diastolic 47–112
[2020-04-21] MEDS ORDERED: WATER (STERILE) FOR INJECTION 10 ML ONE (01:50)
[2020-04-21] MEDS ORDERED: CEFEPIME 1 GM/10 ML (MAXIPIME) VIAL ONE (01:50)
[2020-04-21] MEDS: CEFEPIME 1,000 MG/SWFI 10 ML IV PUSH IV SCH ×2 (01:59)
[2020-04-21] MEDS: RT-ALBUTEROL INHALER HFA (VENTOLIN HFA) 18 GM IH SCH ×6 (02:06→21:17)
[2020-04-21 03:23] LABS: ABG BASE EXCESS 1.2 MMOL/L (-2.5-2.5); ABG OXYGEN SATURATION 94 % (94-100); ABG PCO2 41 MMHG (35-45); ABG PH 7.41 (7.37-7.43); ABG PO2 60 MMHG (79-93)
[2020-04-21 03:24] LABS: ALLENS TEST POSITIVE; INSPIRED O2 50; PATIENT TEMP 35.7; VENTILATOR YES
[2020-04-21 03:46] LABS: BASOPHILS % (AUTO) 0 % (0-10); EOSINOPHILS % (AUTO) 0 % (0-10); HEMATOCRIT 35 % (40-54); LYMPHOCYTES # (AUTO) 0.8 10^3/uL (1.0-4.0); LYMPHOCYTES % (AUTO) 11 % (12-44); MEAN CORPUSCULAR HEMOGLOBIN 33 pg (25-34); MEAN CORPUSCULAR HGB CONC 34 g/dL (32-36); MEAN CORPUSCULAR VOLUME 96 fL (80-99); MEAN PLATELET VOLUME 10.8 fL (9.0-12.2); MONOCYTES # (AUTO) 0.5 10^3/uL (0.0-1.0); MONOCYTES % (AUTO) 6 % (0-12); NEUTROPHILS # (AUTO) 5.9 10^3/uL (1.8-7.8); NEUTROPHILS % (AUTO) 80 % (42-75); PLATELET COUNT 289 10^3/uL (130-400); WHITE BLOOD COUNT 7.4 10^3/uL (4.3-11.0)
[2020-04-21 04:07] LABS: CHLORIDE 99 MMOL/L (98-107); POTASSIUM 4.7 MMOL/L (3.6-5.0); SODIUM 132 MMOL/L (135-145)
[2020-04-21 04:09] LABS: CALCIUM 9.2 MG/DL (8.5-10.1); GLUCOSE 239 MG/DL (70-105)
[2020-04-21 04:11] LABS: CARBON DIOXIDE 24 MMOL/L (21-32)
[2020-04-21 04:13] LABS: CREATININE SERUM 1.09 MG/DL (0.60-1.30); GFR ESTIMATED > 60; PHOSPHORUS 3.3 MG/DL (2.3-4.7)
[2020-04-21 04:14] LABS: BUN/CREATININE RATIO 26
[2020-04-21] MEDS: MAGNESIUM 1 GM/100 ML IVPB 100 ML IV SCH (04:19)
[2020-04-21] MEDS: POTASSIUM CL 10MEQ/50ML IVPB 50 ML IV SCH (04:19)
[2020-04-21] MEDS: KCL 20 MEQ TAB (K-DUR) PO SCH (04:19)
--- NOTE | 2020-04-21 05:12 | Pulmonary Progress Note ---
Subjective Date Seen by a Provider: Apr 21, 2020 Time Seen by a Provider: 05:08 Subjective/Events-last exam Pt is currently on BiPAP Sepsis Event Evaluation Height, Weight, BMI Height: 6'0.00" Weight: 269lbs. 0.0oz. 122.292751nt; 33.90 BMI Method:Stated Focused Exam Time of Focused Exam: 17:27 Exam Exam Vital Signs Date Time Temp Pulse Resp B/P (MAP) Pulse Ox O2 Delivery O2 Flow Rate FiO2 04/21/20 03:24 35.7 04/21/20 03:00 NIV Bilevel 50.00 04/21/20 02:06 42 17 96 50.00 04/21/20 01:56 NIV Bilevel 60.00 04/21/20 01:00 51 04/21/20 00:00 36.0 04/21/20 00:00 52 18 159/62 (94) 95 Vapotherm 40.00 90.00 04/20/20 23:00 57 16 153/62 (92) 93 Vapotherm 40.00 90.00 04/20/20 22:00 67 22 152/64 (93) 94 Vapotherm 40.00 90.00 04/20/20 21:51 42 17 96 60.00 04/20/20 21:00 80 20 128/53 (78) 92 Vapotherm 40.00 90.00 04/20/20 20:30 76 16 158/57 (90) 94 Vapotherm 40.00 90.00 04/20/20 20:20 80 20 128/53 (78) 92 Vapotherm 40.00 90.00 04/20/20 20:00 94 Vapotherm 40.00 90 04/20/20 19:23 36.0 04/20/20 19:00 85 04/20/20 19:00 76 18 140/42 (68) 95 Vapotherm 40.00 90.00 04/20/20 18:45 95 Vapotherm 40.00 90 04/20/20 18:00 68 26 102/67 (79) 95 Vapotherm 40.00 90.00 04/20/20 17:00 73 23 113/41 (65) 91 Vapotherm 40.00 90.00 04/20/20 16:00 75 16 121/46 (71) 91 Vapotherm 40.00 90.00 04/20/20 15:13 36.8 04/20/20 15:00 77 31 131/44 (73) 94 Vapotherm 40.00 90.00 04/20/20 14:13 92 Vapotherm 40.00 90 04/20/20 14:00 64 26 152/71 (98) 90 Vapotherm 40.00 90.00 04/20/20 13:00 62 11 126/47 (67) 96 Vapotherm 40.00 90.00 04/20/20 13:00 55 04/20/20 12:00 61 17 144/63 (85) 97 Vapotherm 40.00 90.00 04/20/20 11:00 57 15 114/94 (101) 96 Vapotherm 40.00 90.00 04/20/20 10:25 Vapotherm 40.00 90.00 04/20/20 10:18 96 Vapotherm 40.00 100 04/20/20 10:00 55 12 127/70 (89) 95 Vapotherm 40.00 100.00 04/20/20 09:00 56 17 152/66 (94) 94 Vapotherm 40.00 100.00 04/20/20 08:00 95 Vapotherm 100 04/20/20 08:00 57 14 138/70 (92) 92 Vapotherm 40.00 100.00 04/20/20 07:56 91 Vapotherm 40.00 100 04/20/20 07:41 36.0 04/20/20 07:00 56 13 138/57 (84) 92 NIV Bilevel 65.00 04/20/20 07:00 44 04/20/20 06:00 52 16 151/52 (85) 94 NIV Bilevel 65.00 I & O 04/21/20 07:00 Intake Total 2255 ml Output Total 2745 ml Balance -490 ml Height & Weight Height: 6'0.00" Weight: 269lbs. 0.0oz. 122.564609yo; 33.90 BMI Method:Stated General Appearance: Obese HEENT: PERRL/EOMI, Normal ENT Inspection, Pharynx Normal, Moist Mucous Membranes Neck: Full Range of Motion, Normal Inspection, Non Tender Respiratory: Lungs Clear, Normal Breath Sounds Cardiovascular: Regular Rate, Rhythm, Normal Peripheral Pulses Capillary Refill: Less Than 3 Seconds Peripheral Pulses: 2+ Radial Pulses (R), 2+ Radial Pulses (L) Gastrointestinal: non tender, soft Extremity: Normal Capillary Refill, Normal Inspection, Normal Range of Motion, Non Tender, No Calf Tenderness, No Pedal Edema Neurologic/Psychiatric: Alert, Oriented x3, No Motor/Sensory Deficits, Normal Mood/Affect Skin: Normal Color, Warm/Dry Lymphatic: No Adenopathy Results Lab Laboratory Tests 04/19/20 05:50 04/20/20 03:01 04/21/20 03:09 Assessment/Plan Assessment/Plan COVID PNA -Decadron -Currently on BiPAP 50% -trial to Vapotherm during the day. -Symptoms started 1wk ago -Give 40mg IV x 1 -Dx 04/16 -CVP Pneumonia -S/p Cefepime, and vanco -Repeat PCT -MRSA is neg Elevated LFTs -Monitor Hx of alcohol dependance -Monitor for withdrawals MADELYN ISBELL DO Apr 21, 2020 05:12
[2020-04-21] MEDS ORDERED: FUROSEMIDE 40 MG/4 ML INJ (LASIX) IVP ONE (05:15)
[2020-04-21] MEDS: inSUlin ASPART (NovoLOG) 1 UNIT/0.01 ML (CHARGE PER UNIT) SC SCH ×4 (06:48→19:56)
--- NOTE | 2020-04-21 08:17 | Diagnostic Imaging Report ---
CHEST 1 VIEW, AP/PA ONLY Indication: Covid-19 pneumonia. Comparison: 04/17/2020 Findings: Worsening of bilateral ill-defined pulmonary opacities, greater on the left. Potential small left pleural effusion. No pneumothorax. Stable enlargement of cardiac silhouette. Impression: 1. Worsening of bilateral pulmonary opacities are likely due to sequelae of Covid-19 pneumonia. Dictated by: Dictated on workstation # [id number]
[2020-04-21] MEDS: SENNA W/DOCUSATE (SENOKOT S) TABLET PO SCH ×2 (08:25→19:56)
[2020-04-21] MEDS: ENOXAPARIN 300 MG/3 ML (LOVENOX) MULTI-DOSE VIAL SQ SCH ×2 (08:25→19:54)
[2020-04-21] MEDS: FAMOTIDINE 20MG/2ML IV (PEPCID) IV SCH ×2 (08:25→19:56)
[2020-04-21] MEDS: ASPIRIN 81 MG CHEW (CHILDREN'S ASA) PO SCH (08:25)
[2020-04-21] MEDS: MELATONIN 3 MG TABLET PO PRN (19:54)
[2020-04-21] MEDS: diphenhydrAMINE 25 MG TAB (BENADRYL) PO PRN (19:54)
[2020-04-21] MEDS: amLODIPine 10 MG (NORVASC) TAB PO SCH (19:54)
[2020-04-21] MEDS: CLOPIDOGREL 75 MG (PLAVIX) TABLET PO SCH (19:55)
[2020-04-21] MEDS: TERAZOSIN 5 MG (HYTRIN) CAPSULE PO SCH (19:55)
[2020-04-21] MEDS: lisINopril 40 MG (PRINIVIL) TABLET PO SCH (19:55)
[2020-04-21] MEDS: meTOproloL SUCCINATE 50 MG (TOPROL XL) TAB PO SCH (19:55)
[2020-04-22] VITALS (8 sets, daily range): BP systolic 120–158; BP diastolic 56–98
[2020-04-22] MEDS: RT-ALBUTEROL INHALER HFA (VENTOLIN HFA) 18 GM IH SCH ×6 (02:23→21:50)
[2020-04-22 03:34] LABS: BASOPHILS % (AUTO) 0 % (0-10); EOSINOPHILS % (AUTO) 0 % (0-10); HEMATOCRIT 38 % (40-54); HEMOGLOBIN 12.7 g/dL (13.3-17.7); LYMPHOCYTES # (AUTO) 1.1 10^3/uL (1.0-4.0); LYMPHOCYTES % (AUTO) 13 % (12-44); MEAN CORPUSCULAR HEMOGLOBIN 32 pg (25-34); MEAN CORPUSCULAR HGB CONC 34 g/dL (32-36); MEAN CORPUSCULAR VOLUME 96 fL (80-99); MEAN PLATELET VOLUME 10.7 fL (9.0-12.2); MONOCYTES # (AUTO) 0.6 10^3/uL (0.0-1.0); MONOCYTES % (AUTO) 7 % (0-12); NEUTROPHILS # (AUTO) 6.2 10^3/uL (1.8-7.8); NEUTROPHILS % (AUTO) 75 % (42-75); PLATELET COUNT 320 10^3/uL (130-400); WHITE BLOOD COUNT 8.3 10^3/uL (4.3-11.0)
[2020-04-22 03:49] LABS: CHLORIDE 98 MMOL/L (98-107); POTASSIUM 4.5 MMOL/L (3.6-5.0); SODIUM 133 MMOL/L (135-145)
[2020-04-22 03:50] LABS: CALCIUM 9.4 MG/DL (8.5-10.1)
[2020-04-22 03:51] LABS: GLUCOSE 197 MG/DL (70-105)
[2020-04-22 03:52] LABS: CARBON DIOXIDE 25 MMOL/L (21-32)
[2020-04-22 03:54] LABS: PHOSPHORUS 3.7 MG/DL (2.3-4.7)
[2020-04-22 03:55] LABS: BUN/CREATININE RATIO 27; CREATININE SERUM 1.14 MG/DL (0.60-1.30); GFR ESTIMATED > 60
[2020-04-22 03:57] LABS: MAGNESIUM 2.1 MG/DL (1.6-2.4)
--- NOTE | 2020-04-22 04:42 | Pulmonary Progress Note ---
Subjective Time Seen by a Provider: 04:40 Subjective/Events-last exam No complications noted. Sepsis Event Evaluation Height, Weight, BMI Height: 6'0.00" Weight: 269lbs. 0.0oz. 122.314950yo; 33.90 BMI Method:Stated Focused Exam Time of Focused Exam: 17:27 Exam Exam Vital Signs Date Time Temp Pulse Resp B/P (MAP) Pulse Ox O2 Delivery O2 Flow Rate FiO2 04/22/20 02:23 46 17 94 55.00 04/22/20 01:00 53 04/21/20 23:23 36.2 53 15 179/69 (105) 95 NIV Bilevel 55.00 04/21/20 22:39 53 20 95 55.00 04/21/20 21:17 92 Vapotherm 40.00 80 04/21/20 20:00 93 Vapotherm 30.00 70 04/21/20 19:37 36.8 61 14 162/59 (93) 94 Vapotherm 40.00 80.00 04/21/20 19:00 71 04/21/20 18:32 92 Vapotherm 40.00 80 04/21/20 18:00 68 15 91 Vapotherm 40.00 80.00 04/21/20 17:00 67 24 166/66 (99) 90 Vapotherm 40.00 80.00 04/21/20 16:00 65 21 167/72 (103) 91 Vapotherm 40.00 80.00 04/21/20 15:42 36.6 04/21/20 15:00 65 25 142/47 (78) 88 Vapotherm 40.00 80.00 04/21/20 14:53 92 Vapotherm 40.00 80 04/21/20 14:00 58 11 144/52 (82) 92 Vapotherm 40.00 80.00 04/21/20 13:00 64 49 143/52 (82) 91 Vapotherm 40.00 80.00 04/21/20 12:31 77 04/21/20 12:00 57 7 146/62 (90) 96 Vapotherm 40.00 80.00 04/21/20 11:12 36.4 04/21/20 11:00 60 18 162/57 (92) 95 Vapotherm 40.00 80.00 04/21/20 10:40 Vapotherm 40.00 80.00 04/21/20 10:38 95 Vapotherm 40.00 100 04/21/20 10:00 63 28 161/64 (96) 92 NIV Bilevel 50.00 04/21/20 09:00 61 19 123/112 (116) 93 NIV Bilevel 50.00 04/21/20 08:26 56 17 146/67 (93) 96 Vapotherm 40.00 100.00 04/21/20 08:00 94 Vapotherm 40.00 90 04/21/20 08:00 52 17 146/67 (93) 99 NIV Bilevel 50.00 04/21/20 07:43 35.6 04/21/20 06:59 90 Vapotherm 40.00 100 04/21/20 06:40 52 04/21/20 06:00 44 16 159/64 (95) 94 NIV Bilevel 50.00 04/21/20 05:00 49 16 173/65 (101) 94 NIV Bilevel 50.00 I & O 04/22/20 07:00 Intake Total 1368 ml Output Total 2175 ml Balance -807 ml Height & Weight Height: 6'0.00" Weight: 269lbs. 0.0oz. 122.840428qg; 33.90 BMI Method:Stated General Appearance: Obese HEENT: PERRL/EOMI, Normal ENT Inspection, Pharynx Normal, Moist Mucous Membranes Neck: Full Range of Motion, Normal Inspection, Non Tender Respiratory: Lungs Clear, Normal Breath Sounds Cardiovascular: Regular Rate, Rhythm, Normal Peripheral Pulses Capillary Refill: Less Than 3 Seconds Peripheral Pulses: 2+ Radial Pulses (R), 2+ Radial Pulses (L) Gastrointestinal: non tender, soft Extremity: Normal Capillary Refill, Normal Inspection, Normal Range of Motion, Non Tender, No Calf Tenderness, No Pedal Edema Neurologic/Psychiatric: Alert, Oriented x3, No Motor/Sensory Deficits, Normal Mood/Affect Skin: Normal Color, Warm/Dry Lymphatic: No Adenopathy Results Lab Laboratory Tests 04/21/20 03:09 04/22/20 03:10 Assessment/Plan Assessment/Plan COVID PNA -Decadron -Currently on BiPAP 50% -Pt is using Vapotherm during the day. -Symptoms started 1wk ago -Dx 04/16 -CVP Pneumonia -S/p Cefepime, and vanco -Repeat PCT -MRSA is neg Elevated LFTs -Monitor Hx of alcohol dependance -Monitor for withdrawals MADELYN ISBELL DO Apr 22, 2020 04:42
[2020-04-22] MEDS: MAGNESIUM 1 GM/100 ML IVPB 100 ML IV SCH (04:59)
[2020-04-22] MEDS: POTASSIUM CL 10MEQ/50ML IVPB 50 ML IV SCH (04:59)
[2020-04-22] MEDS: KCL 20 MEQ TAB (K-DUR) PO SCH (05:00)
[2020-04-22] MEDS: inSUlin ASPART (NovoLOG) 1 UNIT/0.01 ML (CHARGE PER UNIT) SC SCH ×4 (05:55→21:49)
--- NOTE | 2020-04-22 07:51 | Diagnostic Imaging Report ---
INDICATION: Respiratory failure Portable chest 3:49 AM There is cardiomegaly. Pulmonary vascularity is normal. Lungs are clear. IMPRESSION: Cardiomegaly without evidence of pulmonary venous hypertension. Improved aeration of lungs compared to the previous day. Dictated by: Dictated on workstation # [id number]
[2020-04-22] MEDS: FAMOTIDINE 20MG/2ML IV (PEPCID) IV SCH (09:44)
[2020-04-22] MEDS: ENOXAPARIN 300 MG/3 ML (LOVENOX) MULTI-DOSE VIAL SQ SCH ×2 (09:45→21:49)
[2020-04-22] MEDS: ASPIRIN 81 MG CHEW (CHILDREN'S ASA) PO SCH (09:45)
[2020-04-22] MEDS: SENNA W/DOCUSATE (SENOKOT S) TABLET PO SCH ×2 (09:45→21:28)
--- NOTE | 2020-04-22 10:34 | NUR ---
UPDATED PT SISTER AIYANA ON PT CURRENT STATUS, ANSWERED QUESTIONS.
[2020-04-22] MEDS: TERAZOSIN 5 MG (HYTRIN) CAPSULE PO SCH (20:49)
[2020-04-22] MEDS: meTOproloL SUCCINATE 50 MG (TOPROL XL) TAB PO SCH (20:49)
[2020-04-22] MEDS: MELATONIN 3 MG TABLET PO PRN (20:49)
[2020-04-22] MEDS: diphenhydrAMINE 25 MG TAB (BENADRYL) PO PRN (20:50)
[2020-04-22] MEDS: amLODIPine 10 MG (NORVASC) TAB PO SCH (20:50)
[2020-04-22] MEDS: lisINopril 40 MG (PRINIVIL) TABLET PO SCH (20:50)
[2020-04-22] MEDS: CLOPIDOGREL 75 MG (PLAVIX) TABLET PO SCH (20:50)
[2020-04-22] MEDS: FAMOTIDINE 20 MG (PEPCID) TABLET PO SCH (20:50)
[2020-04-23] VITALS (7 sets, daily range): BP systolic 133–178; BP diastolic 61–99
[2020-04-23] MEDS: RT-ALBUTEROL INHALER HFA (VENTOLIN HFA) 18 GM IH SCH ×6 (01:44→21:29)
[2020-04-23 04:34] LABS: CALCIUM 9.5 MG/DL (8.5-10.1)
[2020-04-23 04:35] LABS: BASOPHILS % (AUTO) 0 % (0-10); EOSINOPHILS % (AUTO) 0 % (0-10); HEMATOCRIT 36 % (40-54); HEMOGLOBIN 12.5 g/dL (13.3-17.7); LYMPHOCYTES # (AUTO) 1.2 10^3/uL (1.0-4.0); LYMPHOCYTES % (AUTO) 12 % (12-44); MEAN CORPUSCULAR HEMOGLOBIN 33 pg (25-34); MEAN CORPUSCULAR HGB CONC 34 g/dL (32-36); MEAN CORPUSCULAR VOLUME 96 fL (80-99); MEAN PLATELET VOLUME 10.9 fL (9.0-12.2); MONOCYTES # (AUTO) 0.6 10^3/uL (0.0-1.0); MONOCYTES % (AUTO) 7 % (0-12); NEUTROPHILS # (AUTO) 6.9 10^3/uL (1.8-7.8); NEUTROPHILS % (AUTO) 74 % (42-75); PLATELET COUNT 341 10^3/uL (130-400); WHITE BLOOD COUNT 9.3 10^3/uL (4.3-11.0)
[2020-04-23 04:39] LABS: CREATININE SERUM 1.26 MG/DL (0.60-1.30); PHOSPHORUS 3.9 MG/DL (2.3-4.7)
[2020-04-23 04:41] LABS: MAGNESIUM 2.2 MG/DL (1.6-2.4)
--- NOTE | 2020-04-23 05:25 | Pulmonary Progress Note ---
Subjective Time Seen by a Provider: 05:23 Subjective/Events-last exam No complications noted. Sepsis Event Evaluation Height, Weight, BMI Height: 6'0.00" Weight: 269lbs. 0.0oz. 122.804450el; 33.90 BMI Method:Stated Focused Exam Time of Focused Exam: 17:27 Exam Exam Vital Signs Date Time Temp Pulse Resp B/P (MAP) Pulse Ox O2 Delivery O2 Flow Rate FiO2 04/23/20 04:21 45 04/23/20 04:19 36.0 52 16 151/61 (91) 94 Vapotherm 25.00 40.00 04/23/20 01:44 95 Vapotherm 25.00 50 04/22/20 23:11 35.6 71 18 158/65 (96) 93 Vapotherm 25.00 50.00 04/22/20 21:50 93 Vapotherm 30.00 70 04/22/20 20:46 61 16 156/57 (90) 92 Vapotherm 30.00 70.00 04/22/20 20:00 93 Vapotherm 25.00 50 04/22/20 19:19 36.9 71 20 135/56 (82) 90 Vapotherm 30.00 70.00 04/22/20 19:00 90 04/22/20 18:14 91 Vapotherm 30.00 70 04/22/20 16:06 35.7 71 20 158/64 (95) 94 Vapotherm 30.00 70.00 04/22/20 14:28 37.8 68 90 70 04/22/20 13:05 95 Vapotherm 30.00 70 04/22/20 12:15 37.8 68 22 126/69 (88) 90 NIV Bilevel 55.00 04/22/20 10:10 95 Vapotherm 30.00 70 04/22/20 08:00 93 Vapotherm 30.00 80 04/22/20 07:39 36.0 52 19 126/69 (88) 93 NIV Bilevel 55.00 04/22/20 06:56 49 04/22/20 06:44 55 17 95 55.00 I & O 04/23/20 07:00 Intake Total 1300 ml Output Total 1500 ml Balance -200 ml Height & Weight Height: 6'0.00" Weight: 269lbs. 0.0oz. 122.092555cr; 33.90 BMI Method:Stated General Appearance: Obese HEENT: PERRL/EOMI, Normal ENT Inspection, Pharynx Normal, Moist Mucous Membranes Neck: Full Range of Motion, Normal Inspection, Non Tender Respiratory: Lungs Clear, Normal Breath Sounds Cardiovascular: Regular Rate, Rhythm, Normal Peripheral Pulses Capillary Refill: Less Than 3 Seconds Peripheral Pulses: 2+ Radial Pulses (R), 2+ Radial Pulses (L) Gastrointestinal: non tender, soft Extremity: Normal Capillary Refill, Normal Inspection, Normal Range of Motion, Non Tender, No Calf Tenderness, No Pedal Edema Neurologic/Psychiatric: Alert, Oriented x3, No Motor/Sensory Deficits, Normal Mood/Affect Skin: Normal Color, Warm/Dry Lymphatic: No Adenopathy Results Lab Laboratory Tests 04/22/20 03:10 04/23/20 03:55 Assessment/Plan Assessment/Plan COVID PNA -Decadron -Currently on BiPAP 50% -Pt is using Vapotherm during the day. -Symptoms started 1wk ago -Dx 04/16 -CVP Pneumonia -S/p Cefepime, and vanco -Repeat PCT -MRSA is neg Elevated LFTs -Monitor Hx of alcohol dependance -Monitor for withdrawals MADELYN ISBELL DO Apr 23, 2020 05:25
[2020-04-23] MEDS: MAGNESIUM 1 GM/100 ML IVPB 100 ML IV SCH (05:38)
[2020-04-23] MEDS: POTASSIUM CL 10MEQ/50ML IVPB 50 ML IV SCH (05:38)
[2020-04-23] MEDS: KCL 20 MEQ TAB (K-DUR) PO SCH (05:39)
[2020-04-23] MEDS: inSUlin ASPART (NovoLOG) 1 UNIT/0.01 ML (CHARGE PER UNIT) SC SCH ×4 (05:48→21:28)
--- NOTE | 2020-04-23 07:25 | Diagnostic Imaging Report ---
INDICATION: COVID pneumonia. Comparison with 04/22/2020. FINDINGS: Lungs well-aerated. Mild infiltrate remains in the left lung base, the overall appearance has improved. Mild cardiomegaly. No evidence of pulmonary edema. No pneumothorax or pleural effusion. IMPRESSION: 1. Continued improvement with mild residual left basilar infiltrate. 2. Cardiomegaly without evidence of congestive failure. Dictated by: Dictated on workstation # [id number]
[2020-04-23] MEDS: ASPIRIN 81 MG CHEW (CHILDREN'S ASA) PO SCH (08:32)
[2020-04-23] MEDS: FAMOTIDINE 20 MG (PEPCID) TABLET PO SCH ×2 (08:32→21:28)
[2020-04-23] MEDS: ENOXAPARIN 300 MG/3 ML (LOVENOX) MULTI-DOSE VIAL SQ SCH ×2 (08:32→21:28)
[2020-04-23] MEDS: SENNA W/DOCUSATE (SENOKOT S) TABLET PO SCH ×2 (08:32→21:27)
--- NOTE | 2020-04-23 14:55 | NUR ---
PT TRANSFERRED TO ROOM 422 AT THIS TIME FROM CARDIAC STEP DOWN. PT ORIENTED TO ROOM/CALL LIGHT.
--- NOTE | 2020-04-23 15:04 | NUR ---
"RD ASSESSMENT PMHx: COPD; HTN; GERD; PT INTERACTION: Note pt currently in COVID isolation per chart review. Note all diet information for nutrition assessment for LOS is per Gabby PARRY or per chart review. Gabby states current appetite appears good. Note avg PO intake 88% x4d. Gabby states no issues with n/v/c/d that she is aware of. Note last BM was 04/20, and pt currently on bowel regimen of senna BID, per chart review. Note recent 20# wt loss x2mon, per chart review. Est. kcal needs: 5716-2333 kcal | 15-18 kcal/kg Est. Pro needs: 90-113 g Pro | 0.8-1.0 g Pro/kg PES STATEMENT: Given current PO intake, no nutrition diagnosis at this time (NO-1.1). INTERVENTION: Continue with current diet order of CHO 75g/m 0snack diet, with modifier of Dry Trays. Will continue to follow and reassess as pt needs, intake, and status change. S JOSE PATEL, MS RD LD [phone] cell"
[2020-04-23] MEDS: amLODIPine 10 MG (NORVASC) TAB PO SCH (21:29)
[2020-04-23] MEDS: lisINopril 40 MG (PRINIVIL) TABLET PO SCH (21:29)
[2020-04-23] MEDS: meTOproloL SUCCINATE 50 MG (TOPROL XL) TAB PO SCH (21:29)
[2020-04-23] MEDS: CLOPIDOGREL 75 MG (PLAVIX) TABLET PO SCH (21:29)
[2020-04-23] MEDS: TERAZOSIN 5 MG (HYTRIN) CAPSULE PO SCH (21:33)
[2020-04-23] MEDS: diphenhydrAMINE 25 MG TAB (BENADRYL) PO PRN (23:55)
[2020-04-23] MEDS: ALPRAZolam 0.25 MG (XANAX) TAB PO PRN (23:55)
[2020-04-24] VITALS: BP 173/88
[2020-04-24] MEDS: RT-ALBUTEROL INHALER HFA (VENTOLIN HFA) 18 GM IH SCH ×7 (01:42→21:47)
[2020-04-24 03:53] VITALS: BP 173/88
[2020-04-24 06:09] LABS: BASOPHILS % (AUTO) 0 % (0-10); EOSINOPHILS # (AUTO) 0.1 10^3/uL (0.0-0.3); EOSINOPHILS % (AUTO) 1 % (0-10); HEMATOCRIT 35 % (40-54); HEMOGLOBIN 11.8 g/dL (13.3-17.7); LYMPHOCYTES # (AUTO) 1.4 10^3/uL (1.0-4.0); LYMPHOCYTES % (AUTO) 14 % (12-44); MEAN CORPUSCULAR HEMOGLOBIN 32 pg (25-34); MEAN CORPUSCULAR HGB CONC 34 g/dL (32-36); MEAN CORPUSCULAR VOLUME 96 fL (80-99); MEAN PLATELET VOLUME 10.9 fL (9.0-12.2); MONOCYTES # (AUTO) 0.6 10^3/uL (0.0-1.0); MONOCYTES % (AUTO) 6 % (0-12); NEUTROPHILS # (AUTO) 7.4 10^3/uL (1.8-7.8); NEUTROPHILS % (AUTO) 72 % (42-75); PLATELET COUNT 329 10^3/uL (130-400); WHITE BLOOD COUNT 10.2 10^3/uL (4.3-11.0)
[2020-04-24] MEDS: inSUlin ASPART (NovoLOG) 1 UNIT/0.01 ML (CHARGE PER UNIT) SC SCH ×4 (06:24→20:38)
[2020-04-24 06:27] LABS: POTASSIUM 4.8 MMOL/L (3.6-5.0); SMEAR SCAN COMMENT YES
[2020-04-24 06:28] LABS: CALCIUM 9.2 MG/DL (8.5-10.1)
[2020-04-24] MEDS: KCL 20 MEQ TAB (K-DUR) PO SCH (06:28)
[2020-04-24] MEDS: POTASSIUM CL 10MEQ/50ML IVPB 50 ML IV SCH (06:28)
[2020-04-24 06:32] LABS: PHOSPHORUS 3.3 MG/DL (2.3-4.7)
[2020-04-24 06:33] LABS: CREATININE SERUM 1.2 MG/DL (0.60-1.30)
[2020-04-24 06:35] LABS: MAGNESIUM 2.1 MG/DL (1.6-2.4)
[2020-04-24] MEDS: MAGNESIUM 1 GM/100 ML IVPB 100 ML IV SCH (06:35)
[2020-04-24 07:55] VITALS: BP 138/62
[2020-04-24] MEDS: FAMOTIDINE 20 MG (PEPCID) TABLET PO SCH ×2 (08:07→20:35)
[2020-04-24] MEDS: SENNA W/DOCUSATE (SENOKOT S) TABLET PO SCH ×2 (08:07→20:35)
[2020-04-24] MEDS: ASPIRIN 81 MG CHEW (CHILDREN'S ASA) PO SCH (08:07)
[2020-04-24] MEDS: ENOXAPARIN 300 MG/3 ML (LOVENOX) MULTI-DOSE VIAL SQ SCH ×2 (08:08→20:45)
[2020-04-24] MEDS ORDERED: FUROSEMIDE 40 MG/4 ML INJ (LASIX) IVP NR (10:45)
[2020-04-24 12:00] VITALS: BP 153/69
[2020-04-24 16:44] VITALS: BP 159/67
[2020-04-24 19:38] VITALS: BP 152/68
[2020-04-24] MEDS: meTOproloL SUCCINATE 50 MG (TOPROL XL) TAB PO SCH (20:34)
[2020-04-24] MEDS: TERAZOSIN 5 MG (HYTRIN) CAPSULE PO SCH (20:34)
[2020-04-24] MEDS: amLODIPine 10 MG (NORVASC) TAB PO SCH (20:35)
[2020-04-24] MEDS: lisINopril 40 MG (PRINIVIL) TABLET PO SCH (20:35)
[2020-04-24] MEDS: CLOPIDOGREL 75 MG (PLAVIX) TABLET PO SCH (20:35)
[2020-04-24] MEDS: ALPRAZolam 0.25 MG (XANAX) TAB PO PRN (20:36)
[2020-04-24] MEDS: MELATONIN 3 MG TABLET PO PRN (20:36)
[2020-04-25] VITALS (7 sets, daily range): BP systolic 125–184; BP diastolic 57–74
[2020-04-25] MEDS: RT-ALBUTEROL INHALER HFA (VENTOLIN HFA) 18 GM IH SCH ×6 (01:49→21:07)
[2020-04-25 06:11] LABS: BASOPHILS % (AUTO) 0 % (0-10); EOSINOPHILS # (AUTO) 0.2 10^3/uL (0.0-0.3); EOSINOPHILS % (AUTO) 2 % (0-10); HEMATOCRIT 35 % (40-54); HEMOGLOBIN 11.9 g/dL (13.3-17.7); LYMPHOCYTES # (AUTO) 1.5 10^3/uL (1.0-4.0); LYMPHOCYTES % (AUTO) 14 % (12-44); MEAN CORPUSCULAR HEMOGLOBIN 33 pg (25-34); MEAN CORPUSCULAR HGB CONC 34 g/dL (32-36); MEAN CORPUSCULAR VOLUME 96 fL (80-99); MEAN PLATELET VOLUME 10.7 fL (9.0-12.2); MONOCYTES # (AUTO) 0.6 10^3/uL (0.0-1.0); MONOCYTES % (AUTO) 6 % (0-12); NEUTROPHILS # (AUTO) 7.3 10^3/uL (1.8-7.8); NEUTROPHILS % (AUTO) 70 % (42-75); PLATELET COUNT 322 10^3/uL (130-400); WHITE BLOOD COUNT 10.3 10^3/uL (4.3-11.0)
[2020-04-25] MEDS: inSUlin ASPART (NovoLOG) 1 UNIT/0.01 ML (CHARGE PER UNIT) SC SCH ×4 (06:22→21:05)
[2020-04-25 06:24] LABS: CHLORIDE 99 MMOL/L (98-107); POTASSIUM 4.8 MMOL/L (3.6-5.0); SODIUM 132 MMOL/L (135-145)
[2020-04-25 06:25] LABS: CALCIUM 9.2 MG/DL (8.5-10.1); GLUCOSE 183 MG/DL (70-105)
[2020-04-25 06:27] LABS: CARBON DIOXIDE 23 MMOL/L (21-32)
[2020-04-25 06:29] LABS: CREATININE SERUM 1.17 MG/DL (0.60-1.30); GFR ESTIMATED > 60
[2020-04-25 06:30] LABS: BUN/CREATININE RATIO 32
[2020-04-25 06:31] LABS: MAGNESIUM 2.1 MG/DL (1.6-2.4)
[2020-04-25] MEDS: MAGNESIUM 1 GM/100 ML IVPB 100 ML IV SCH (06:34)
[2020-04-25] MEDS: POTASSIUM CL 10MEQ/50ML IVPB 50 ML IV SCH (06:34)
[2020-04-25] MEDS: KCL 20 MEQ TAB (K-DUR) PO SCH (06:34)
[2020-04-25] MEDS: FAMOTIDINE 20 MG (PEPCID) TABLET PO SCH ×2 (08:21→21:03)
[2020-04-25] MEDS: SENNA W/DOCUSATE (SENOKOT S) TABLET PO SCH ×2 (08:21→21:03)
[2020-04-25] MEDS: ASPIRIN 81 MG CHEW (CHILDREN'S ASA) PO SCH (08:21)
[2020-04-25] MEDS: ENOXAPARIN 300 MG/3 ML (LOVENOX) MULTI-DOSE VIAL SQ SCH ×2 (08:22→21:06)
--- NOTE | 2020-04-25 15:50 | Progress Note ---
Subjective Subjective/Events-last exam Patient states that he is feeling better. Would like to get catheter out and take a shower. Tolerating PO diet and ambulating to bathroom. Review of Systems Pulmonary: Dyspnea, Cough Cardiovascular: No: Chest Pain, Palpitations, Edema Gastrointestinal: No: Nausea, Vomiting, Abdominal Pain, Diarrhea, Constipation Neurological: Weakness, Incoordination Focused Exam Time of Focused Exam: 17:27 Objective Exam Last Set of Vital Signs Vital Signs Date Time Temp Pulse Resp B/P (MAP) Pulse Ox O2 Delivery O2 Flow Rate FiO2 04/25/20 12:45 36.4 62 20 130/62 (84) 96 Nasal Cannula 5.00 04/25/20 01:47 35 Capillary Refill : Less Than 3 SecondsLess Than 3 Seconds I&O Intake and Output 04/25/20 00:00 Intake Total 2000 ml Output Total 3025 ml Balance -1025 ml Intake Oral 2000 ml Output Urine Total 3025 ml # Bowel Movements 4 General: Alert, Oriented X3, Cooperative, No Acute Distress HEENT: Mucous Memb Moist/[place] Lungs: Clear to Auscultation, Normal Air Movement Heart: Regular Rate, No Murmurs Abdomen: Normal Bowel Sounds, Soft, No Tenderness, No Masses Extremities: Other (1+ pitting edema bilaterally) Neuro: Normal Speech, Strength at 5/5 X4 Ext, Sensation Intact, Cranial Nerves 3-12 NL Results/Procedures Lab Laboratory Tests 04/24/20 16:31: Glucometer 402*H 04/24/20 17:22: Glucometer 371H 04/24/20 19:40: Glucometer 340H 04/25/20 05:18: White Blood Count 10.3, Red Blood Count 3.62L, Hemoglobin 11.9L, Hematocrit 35L, Mean Corpuscular Volume 96, Mean Corpuscular Hemoglobin 33, Mean Corpuscular Hemoglobin Concent 34, Red Cell Distribution Width 12.4, Platelet Count 322, Mean Platelet Volume 10.7, Immature Granulocyte % (Auto) 8, Neutrophils (%) (Auto) 70, Lymphocytes (%) (Auto) 14, Monocytes (%) (Auto) 6, Eosinophils (%) (Auto) 2, Basophils (%) (Auto) 0, Neutrophils # (Auto) 7.3, Lymphocytes # (Auto) 1.5, Monocytes # (Auto) 0.6, Eosinophils # (Auto) 0.2, Basophils # (Auto) 0.0, Immature Granulocyte # (Auto) 0.8H, Sodium Level 132L, Potassium Level 4.8, Chloride Level 99, Carbon Dioxide Level 23, Anion Gap 10, Blood Urea Nitrogen 37H, Creatinine 1.17, Estimat Glomerular Filtration Rate > 60, BUN/Creatinine Ratio 32, Glucose Level 183H, Calcium Level 9.2, Phosphorus Level 4.0, Magnesium Level 2.1 04/25/20 05:39: Glucometer 163H 04/25/20 10:36: Glucometer 282H Microbiology 04/17/20 MRSA Screen - Final, Complete MRSA not isolated 04/16/20 Blood Culture - Final, Complete No growth Assessment/Plan Assessment/Plan (1) Acute on chronic respiratory failure with hypoxemia Status: Acute Assessment & Plan: 04/25: Much improved, NC 5 L today, continue to titrate as tolerated, will likely need oxygen at d/c which will be new, Continue IV antibiotics (2) COVID-19 Status: Acute (3) Elevated LFTs Status: Acute Assessment & Plan: 04/25: Continue to monitor, h/o EtOH abuse (4) COPD (chronic obstructive pulmonary disease) Status: Acute Assessment & Plan: 04/25: MAT protocol Qualifiers: Qualified Codes: J44.9 - Chronic obstructive pulmonary disease, unspecified (5) ELIER (obstructive sleep apnea) Status: Chronic (6) HTN (hypertension) Status: Chronic Qualifiers: Qualified Codes: I10 - Essential (primary) hypertension (7) H/O ETOH abuse Status: Chronic (8) DVT prophylaxis Status: Acute Assessment & Plan: - NESTOR Miranda MD Apr 25, 2020 15:50
[2020-04-25] MEDS: CLOPIDOGREL 75 MG (PLAVIX) TABLET PO SCH (21:03)
[2020-04-25] MEDS: meTOproloL SUCCINATE 50 MG (TOPROL XL) TAB PO SCH (21:03)
[2020-04-25] MEDS: MELATONIN 3 MG TABLET PO PRN (21:03)
[2020-04-25] MEDS: lisINopril 40 MG (PRINIVIL) TABLET PO SCH (21:03)
[2020-04-25] MEDS: amLODIPine 10 MG (NORVASC) TAB PO SCH (21:03)
[2020-04-25] MEDS: TERAZOSIN 5 MG (HYTRIN) CAPSULE PO SCH (21:03)
[2020-04-25] MEDS: ALPRAZolam 0.25 MG (XANAX) TAB PO PRN (21:03)
[2020-04-26 00:20] VITALS: BP 146/50
[2020-04-26] MEDS: RT-ALBUTEROL INHALER HFA (VENTOLIN HFA) 18 GM IH SCH ×2 (03:15→07:05)
[2020-04-26 04:00] VITALS: BP 132/64
[2020-04-26] MEDS: inSUlin ASPART (NovoLOG) 1 UNIT/0.01 ML (CHARGE PER UNIT) SC SCH (06:25)
[2020-04-26 06:27] LABS: BASOPHILS % (AUTO) 0 % (0-10); EOSINOPHILS # (AUTO) 0.1 10^3/uL (0.0-0.3); EOSINOPHILS % (AUTO) 1 % (0-10); HEMATOCRIT 34 % (40-54); HEMOGLOBIN 11.6 g/dL (13.3-17.7); LYMPHOCYTES # (AUTO) 1.2 10^3/uL (1.0-4.0); LYMPHOCYTES % (AUTO) 12 % (12-44); MEAN CORPUSCULAR HEMOGLOBIN 33 pg (25-34); MEAN CORPUSCULAR HGB CONC 35 g/dL (32-36); MEAN CORPUSCULAR VOLUME 96 fL (80-99); MEAN PLATELET VOLUME 10.5 fL (9.0-12.2); MONOCYTES # (AUTO) 0.6 10^3/uL (0.0-1.0); MONOCYTES % (AUTO) 6 % (0-12); NEUTROPHILS # (AUTO) 7.3 10^3/uL (1.8-7.8); NEUTROPHILS % (AUTO) 74 % (42-75); PLATELET COUNT 295 10^3/uL (130-400); WHITE BLOOD COUNT 9.9 10^3/uL (4.3-11.0)
[2020-04-26 06:46] LABS: CHLORIDE 100 MMOL/L (98-107); POTASSIUM 4.8 MMOL/L (3.6-5.0)
[2020-04-26 06:47] LABS: SODIUM 131 MMOL/L (135-145)
[2020-04-26 06:48] LABS: CALCIUM 9.3 MG/DL (8.5-10.1)
[2020-04-26 06:49] LABS: GLUCOSE 180 MG/DL (70-105)
[2020-04-26 06:50] LABS: CARBON DIOXIDE 20 MMOL/L (21-32)
[2020-04-26 06:52] LABS: GFR ESTIMATED > 60; PHOSPHORUS 4.5 MG/DL (2.3-4.7)
[2020-04-26 06:53] LABS: BUN/CREATININE RATIO 36
[2020-04-26 06:55] LABS: MAGNESIUM 2.1 MG/DL (1.6-2.4)
[2020-04-26] MEDS: KCL 20 MEQ TAB (K-DUR) PO SCH (06:59)
[2020-04-26 08:10] VITALS: BP 123/51
[2020-04-26] MEDS: FAMOTIDINE 20 MG (PEPCID) TABLET PO SCH (09:04)
[2020-04-26] MEDS: ENOXAPARIN 300 MG/3 ML (LOVENOX) MULTI-DOSE VIAL SQ SCH (09:04)
[2020-04-26] MEDS: SENNA W/DOCUSATE (SENOKOT S) TABLET PO SCH (09:04)
[2020-04-26] MEDS: ASPIRIN 81 MG CHEW (CHILDREN'S ASA) PO SCH (09:04)
--- NOTE | 2020-04-26 12:21 | Physical Therapy Progress Note ---
Therapy Progress Note PT order received. Nursing reports Pt is up ad amberly in room and reports he is at PLOF and is awaiting ride for discharge. KRIS LUDWIG DPT Apr 26, 2020 12:21
--- NOTE | 2020-04-26 12:23 | Discharge Summary ---
Diagnosis/Chief Complaint Date of Admission Apr 16, 2020 at 17:30 Date of Discharge Discharge Date: Apr 26, 2020 Admission Diagnosis Assessment: COVID-19 PNA AECOPD HTN Former smoker Plan: Dr Pena consult IV abx O2 Primary Care Mani Pope Discharge Diagnosis (1) COVID-19 Status: Acute (2) Acute on chronic respiratory failure with hypoxemia Status: Acute (3) COPD exacerbation Status: Acute (4) Pneumonia Status: Acute Discharge Summary Discharge Physical Exam Allergies: Coded Allergies: No Known Drug Allergies (Verified , 07/20/18) Vitals & I&Os Vital Signs Date Time Temp Pulse Resp B/P (MAP) Pulse Ox O2 Delivery O2 Flow Rate FiO2 04/26/20 08:10 34.8 48 18 123/51 (75) 95 Nasal Cannula 3.00 04/25/20 15:34 32 General Appearance: No Apparent Distress Respiratory: Lungs Clear Cardiovascular: Regular Rate, Rhythm, No Edema, No Gallop, No JVD, No Murmur, Normal Peripheral Pulses Extremity: Normal Capillary Refill, Normal Inspection, Normal Range of Motion, Non Tender, No Calf Tenderness, No Pedal Edema Hospital Course Was the Problem List Reviewed?: Yes The patient is a 74-year-old white male who initially reported myalgia with chills and a mild cough Tuesday. 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 There he was noted to have a small right basilar infiltrates and was Covid positive. He has a history of O2 dependent COPD normally on 3 L per nasal cannula and was admitted. He underwent Decadron and remdesivir with significant improvement in symptoms. This morning he states he feels he is back to baseline and wishes to go home. His chest was clear he was eating normally and back to 3 L per nasal cannula with O2 saturations greater than 92%. He is not a previously known diabetic but has had multiple blood sugars in the 200-300 range. Now that he is off of Decadron his blood sugars have been trending lower and this morning he was 170. Discussed his need for repeat glucose monitoring on return to [facility] in 2 weeks and discussed the importance of a low glycemic diet discussed in layman's terms. There were no changes in his home medications.He will be quarantining at home from the rest of the family until he hears from the health department about their algorithm generated length of quarantine. He was aware of this as it had already been communicated to him by his nurse. Labs (last 24 hrs) Laboratory Tests 04/25/20 15:43: Glucometer 307H 04/25/20 20:40: Glucometer 259H 04/26/20 06:00: White Blood Count 9.9, Red Blood Count 3.52L, Hemoglobin 11.6L, Hematocrit 34L, Mean Corpuscular Volume 96, Mean Corpuscular Hemoglobin 33, Mean Corpuscular Hemoglobin Concent 35, Red Cell Distribution Width 12.4, Platelet Count 295, Mean Platelet Volume 10.5, Immature Granulocyte % (Auto) 7, Neutrophils (%) (Auto) 74, Lymphocytes (%) (Auto) 12, Monocytes (%) (Auto) 6, Eosinophils (%) (Auto) 1, Basophils (%) (Auto) 0, Neutrophils # (Auto) 7.3, Lymphocytes # (Auto) 1.2, Monocytes # (Auto) 0.6, Eosinophils # (Auto) 0.1, Basophils # (Auto) 0.0, Immature Granulocyte # (Auto) 0.7H, Sodium Level 131L, Potassium Level 4.8, Chloride Level 100, Carbon Dioxide Level 20L, Anion Gap 11, Blood Urea Nitrogen 40H, Creatinine 1.10, Estimat Glomerular Filtration Rate > 60, BUN/Creatinine Ratio 36, Glucose Level 180H, Calcium Level 9.3, Phosphorus Level 4.5, Magnesium Level 2.1 04/26/20 06:06: Glucometer 170H Microbiology 04/17/20 MRSA Screen - Final, Complete MRSA not isolated 04/16/20 Blood Culture - Final, Complete No growth Patient resulted labs reviewed. Pending Labs Laboratory Tests 04/26/20 06:00: White Blood Count 9.9, Red Blood Count 3.52, Hemoglobin 11.6, Hematocrit 34, Mean Corpuscular Volume 96, Mean Corpuscular Hemoglobin 33, Mean Corpuscular Hemoglobin Concent 35, Red Cell Distribution Width 12.4, Platelet Count 295, Mean Platelet Volume 10.5, Immature Granulocyte % (Auto) 7, Neutrophils (%) (Auto) 74, Lymphocytes (%) (Auto) 12, Monocytes (%) (Auto) 6, Eosinophils (%) (Auto) 1, Basophils (%) (Auto) 0, Neutrophils # (Auto) 7.3, Lymphocytes # (Auto) 1.2, Monocytes # (Auto) 0.6, Eosinophils # (Auto) 0.1, Basophils # (Auto) 0.0, Immature Granulocyte # (Auto) 0.7, Sodium Level 131, Potassium Level 4.8, Chloride Level 100, Carbon Dioxide Level 20, Anion Gap 11, Blood Urea Nitrogen 40, Creatinine 1.10, Estimat Glomerular Filtration Rate > 60, BUN/Creatinine Ratio 36, Glucose Level 180, Calcium Level 9.3, Phosphorus Level 4.5, Magnesium Level 2.1 04/26/20 06:06: Glucometer 170 Discussion & Recommendations Discharge Planning: >30 minutes discharge planning Discharge Home Medications: Active Scripts Active Reported Aspirin 81 Mg Tab.chew 81 Mg PO DAILY Metoprolol Succinate 50 Mg Tab.er.24h 50 Mg PO HS Plavix (Clopidogrel Bisulfate) 75 Mg Tablet 75 Mg PO HS Lisinopril 40 Mg Tablet 40 Mg PO HS Terazosin HCl 10 Mg Capsule 10 Mg PO HS Amlodipine Besylate 10 Mg Tablet 10 Mg PO HS Instructions to patient/family Please see electronic discharge instructions given to patient. Problem Qualifiers (1) Pneumonia: Pneumonia type: due to unspecified organism Laterality: unspecified l aterality Lung location: unspecified part of lung Qualified Codes: J18.9 - Pneumonia, unspecified organism NIKOLAS JUAN MD Apr 26, 2020 12:23
[2020-04-26 13:36] VITALS: BP 123/51
== END 2020-04-26 13:39 | disposition home or self-care (01) | DRG 177 ==
LOC: EDUNIT# 15:09 → ER 15:12 → CSD 17:30 → 4TH 04-17 15:53 → ICU 04-19 19:00 → CSD 04-21 18:28 → 4TH 04-23 14:10
PROVIDERS: ADMIT Internal Medicine; ATTEND Internal Medicine
PROC: XW13325 Transfusion of Convalescent Plasma (Nonautologous) into Peripheral Vein, Percutaneous Approach, New Technology Group 5 (ICD-10-PCS; principal; 2020-04-17)
PROC: 5A09457 Assistance with Respiratory Ventilation, 24-96 Consecutive Hours, Continuous Positive Airway Pressure (ICD-10-PCS; 2020-04-19)
DX: U07.1 COVID-19 (principal); J12.82 Pneumonia due to coronavirus disease 2019; J96.21 Acute and chronic respiratory failure with hypoxia; J15.9 Unspecified bacterial pneumonia; J44.1 Chronic obstructive pulmonary disease with (acute) exacerbation; E87.4 Mixed disorder of acid-base balance; J44.0 Chronic obstructive pulmonary disease with (acute) lower respiratory infection; E11.9 Type 2 diabetes mellitus without complications; I10 Essential (primary) hypertension; K21.9 Gastro-esophageal reflux disease without esophagitis; M19.91 Primary osteoarthritis, unspecified site; M54.9 Dorsalgia, unspecified; G47.33 Obstructive sleep apnea (adult) (pediatric); Z99.81 Dependence on supplemental oxygen; Z87.891 Personal history of nicotine dependence; F10.21 Alcohol dependence, in remission; Z79.82 Long term (current) use of aspirin; Z73.0 Burn-out
CPT/HCPCS: 36415; 71045; 80048; 80053; 81000; 82805; 82962; 83735; 83880; 84100; 84145; 85025; 85379; 85610; 85730; 86141; 86900; 86901; 87040; 87081; 87804; 94640; 94660; 94664; 94760; 96361; 96365; 96366; 96372; 96375

== ENCOUNTER 2020-10-04 23:45 | Emergency (ER) | payer MEDICARE ==
[~2020-10-04] VITALS: Ht 183 cm; Wt 106.4 kg
[~2020-10-04 23:45] MED LIST changes: -LISI40TA PO; +LISI40TA9 PO
[2020-10-04] MEDS ORDERED: SODIUM BICARB 8.4% 50 MEQ/50 ML (ABBOTT) SYR INJ ONE (23:50)
[2020-10-04] MEDS ORDERED: EPINEPHrine 0.1 MG/ML 10 ML (HOSPIRA) SYR IJ ONE (23:50)
[2020-10-04 23:59] VITALS: BP 0/0
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
== END 2020-10-05 03:05 | disposition expired ==
LOC: EDUNIT# 23:48 → ER 23:49
DX: S01.01XA Laceration without foreign body of scalp, initial encounter (principal); S80.12XA Contusion of left lower leg, initial encounter; S80.11XA Contusion of right lower leg, initial encounter; S40.022A Contusion of left upper arm, initial encounter; S40.021A Contusion of right upper arm, initial encounter; I46.9 Cardiac arrest, cause unspecified; E66.9 Obesity, unspecified; I10 Essential (primary) hypertension; J44.9 Chronic obstructive pulmonary disease, unspecified; Z68.31 Body mass index [BMI] 31.0-31.9, adult; Z79.899 Other long term (current) drug therapy; Z79.82 Long term (current) use of aspirin; Z79.01 Long term (current) use of anticoagulants; V89.2XXA Person injured in unspecified motor-vehicle accident, traffic, initial encounter
CPT/HCPCS: 31500; 99291; G0390